=== PATIENT | male | born 1940 | race Caucasian/White ===

== ENCOUNTER 2016-05-31 10:33 | Inpatient (IN) | payer MEDICARE ==
[~2016-05-31] VITALS: Ht 172.7 cm; Wt 83.0 kg
[~2016-05-31 10:33] MED LIST: /AMLO25TA PO; /MIRT30TA PO; /TIOT18INH INH; ACET65TA OR; ALBU17IN2 INH; ALBU17IN2 NEB; ALBU83IN INH; AMBI10TA OR; AMLO10TAB PO; AMLO5TAB2 PO; ASPI81TA PO; ASPI81TA31 PO; ASPI81TA7 PO; ASPI81TA85 PO; ATOR40TA PO; BROV15NE INH; BROVANA; CARV12.5 PO; CEFT500T PO; EFFE150C PO; ENAL10TA2 PO; FURO40TA2 PO; ISOS30TA4 PO; KEFL500C7 PO; LEVO750T33 PO; LIDO1OIN2 TOP; LISI10TA4 PO; LISI30TA4 PO; LOPR50TA PO; LOSA50TA20 PO; MAALSUS OR; METF500T4 PO; METO25TAB PO; MIRT30TA3 PO; MIRT45TA PO; NITR0.4S SL; PLAV75TA2 PO; PRED10TA PO; PRED10TA2 OR; PRED10TA2 PO; PRED5TA PO; PROA1AER INH; REME15TA PO; REME30TA PO; ROXI1TAB2 PO; SIMV20TA2 PO; SPIR12.9 INH; SPIR1CAP INH; SPIR25TA2 PO; Santyl TD; THEO30TASA PO; TYLE325T5 PO; TYLE650T30 PO; VENL150C43 PO; VENTAER IN; VITA100066 PO; ZITH250T OR; ZITH500T PO; [UNRECOGNIZED DRUG - CODE] PO
[2016-05-31] MEDS ORDERED: IPRATROPIUM 0.5MG/ALBUTEROL 2.5MG INH SOL UD 3ML (DUONEB)(J7620) As Ordered ONE (10:46)
[2016-05-31 10:52] LABS: ABG BASE EXCESS -2.3 (-2.0-2.0); ABG DEVICE NASAL CANN; ABG HCO3 21.8 MEQ/L (22.0-26.0); ABG PARTIAL PRESSURE CO2 35.8 mmHg (35.0-45.0); ABG PARTIAL PRESSURE O2 194.8 mmHg (75.0-100.0); ABG STANDARD HCO3 22.6 MEQ/L (22.0-26.0); ABG TOTAL CO2 22.9 MEQ/L (23.0-31.0); ABG pH (ARTERIAL) 7.403 UNITS (7.350-7.450)
--- NOTE | 2016-05-31 11:08 | REP ---
AP portable sitting chest radiograph 05/31/2016 Indication: Shortness of breath Comparison: AP portable chest 05/22/2016, PA and lateral chest 11/02/2015 The cardiac silhouette is normal. Atherosclerotic changes are noted in the thoracic aorta. Small amount of bibasilar fibro atelectatic changes are again identified. There are mild degenerative changes in the thoracic spine. Soft tissues are within normal limits, Impression 1. Small mild bibasilar fibro atelectatic changes, stable. 2. Normal cardiac silhouette. Atherosclerotic changes in the thoracic aorta Signed by Kristin Christie MD 05/31/2016 10:59 A
[2016-05-31 11:18] LABS: BASO # 0.1 K/mm3 (0.0-0.2); BASO % 0.6 % (0.0-1.0); EOS # 0.1 K/mm3 (0.0-0.50); EOS % 0.7 % (0.0-3.0); LARGE UNSTAINED CELL # 0.2 K/mm3 (0.0-0.4); LARGE UNSTAINED CELL % 1.7 % (0.0-4.0); LYMPH # 2.8 K/mm3 (1.5-4.5); LYMPH % 19.8 % (24.0-44.0); MEAN CORPUSCULAR HEMOGLOBIN 32.6 pg (27.0-33.0); MEAN CORPUSCULAR HGB CONC 34.9 g/dl (32.0-36.5); MEAN CORPUSCULAR VOLUME 93.5 fl (80.0-96.0); MONO # 0.7 K/mm3 (0.0-0.8); MONO % 4.7 % (0.0-5.0); NEUTROPHILS # 10.2 K/mm3 (1.8-7.7); NEUTROPHILS % 72.5 % (36.0-66.0); PLATELET COUNT, AUTOMATED 149 k/mm3 (150-450); RED CELL DISTRIBUTION WIDTH 13.7 % (11.5-14.5)
[2016-05-31 11:29] LABS: CALCIUM LEVEL 9.2 MG/DL (8.8-10.2); CREATININE FOR GFR 3.68 MG/DL (0.70-1.30); GLOMERULAR FILTRATION RATE 17.2 (>42); POTASSIUM SERUM 3.7 MEQ/L (3.5-5.1)
[2016-05-31] MEDS ORDERED: PROA1AER INH (11:55)
[2016-05-31] MEDS ORDERED: FLORCAP10 PO (11:57)
[2016-05-31] MEDS ORDERED: ONDANSETRON 4MG/2ML VIAL (J2405) IV PRN (13:15)
[2016-05-31] MEDS ORDERED: ALBUTEROL 90 MCG/ACT 8GM HFA INHALER INH PRN (13:45)
[2016-05-31] MEDS ORDERED: ALBUTEROL SULFATE 2.5 MG/0.5 ML INH NEB SOLN INH PRN (13:45)
[2016-05-31 14:01] LABS: THEOPHYLLINE LEVEL 26.4 UG/ML (10.0-20.0)
[2016-05-31 14:03] LABS: ERYTHROCYTE SEDIMENTATION RATE 16 mm/hr (0-20)
[2016-05-31 16:00] VITALS: BP 160/76
[2016-05-31] MEDS: NS 1,000 ML IV SCH (16:02)
--- NOTE | 2016-05-31 16:05 | EDDOCDS ---
Nurse's Notes [facility] Name: Feliciano Flores Age: 76 yrs Sex: Male : 1940 Arrival Date: 05/31/2016 Time: 10:33 Bed Admit Hold Private MD: Katie Diagnosis: Acute kidney failure Presentation: 05/31 10:37 Presenting complaint: EMS states: Call was for difficulty breathing with increased mcp difficulty with exertion. Uses O2 at home. Placed on NRB and sats increased, was given neb by EMS. SL established in right wrist #20, FSBS 132. Passed out and went limp x2 in ambulance, vision blurry. Adult Sepsis Screening: The patient does not have new or worsening altered mentation. Patient has a respiratory rate of greater than or equal to 22 (1 point). Systolic blood pressure is greater than 100. Patient has a qSOFA score of 1- Negative Sepsis Screen. Suicide/Homicide risk assessment- the patient denies having any suicidal and/or homicidal ideations and does not present with any other emotional, behavioral or mental health complaints. Status: Patient is not a service operations manager or dependent. Transition of care: patient was not received from another setting of care. 10:37 Acuity: ELLY Level 2 mcp 10:37 Method Of Arrival: Ambulance mcp Triage Assessment: 10:49 The patient is triaged at the bedside. See Assessment in Nurses Notes section of ED mcp record. 15:39 Respiratory: Onset: The symptoms/episode began/occurred suddenly. mcp Historical: - Allergies: no known allergies; - Home Meds: 1. albuterol sulfate 2.5 mg /3 mL (0.083 %) Inhl nebu daily prn for Chronic Obstructive Pulmonary Disease 2. atorvastatin 40 mg oral tab 1 tab once daily for Hypercholesterolemia 3. Brovana 15 mcg/2 mL inhalation nebu 2 mL 2 times per day for Bronchospasm Prevention with COPD 4. carvedilol 12.5 mg oral tab 1 tab every 12 hours for Hypertension 5. levofloxacin 750 mg Oral tab 1 tab once daily for foot infection 6. lisinopril 30 mg oral tab 1 tab once daily 7. mirtazapine 30 mg Oral tab 1 tab once daily for depression 8. Oxygen 3L NC nightly 2 LPM continuous 9. ProAir HFA 90 mcg/actuation inhalation HFAA 2 puffs every 6 hours 10. Spiriva with HandiHaler 18 mcg Inhl CpDv 1 cap once daily 11. theophylline 300 mg Oral tab 1 tab every 12 hours 12. venlafaxine 150 mg oral cp24 1 cap twice a day for Anxiety with Depression 13. aspirin 81 mg Oral chew 1 tab once daily 14. Vitamin D Oral 2000 units daily 15. Florajen oral oral daily 16. Santyl 250 unit/gram Topical oint once daily - PMHx: Aortic Aneurysm; arteriosclerotic heart disease; cellulitis; COPD; Diverticulitis; enlarged prostate; Hiatal Hernia; Hypercholesterolemia; Hypertension; Osteoarthritis; Pneumonia; traumatic subarachnoid hemorrhage; PVD; - PSHx: Hernia repair; Carpal Tunnel Repair- Left; Bone Grafting; Cholecystectomy; Cataract Surgery- Bilateral; endovascular AAA repair; L popliteal artery bypass; - Social history: Smoking status: Patient states former smoker of tobacco. No barriers to communication noted, The patient speaks fluent Romanian. - Family history: Not pertinent. - : The pt / caregiver states he / she is not on anticoagulants. Home medication list is obtained from the patient. - Exposure Risk Screening:: None identified. Screenin:52 Screening information is obtained from the patient. Fall risk: At risk due to age, The mcp following interventions are performed due to a positive Fall Risk Screen: Fall Risk is added to Special Handling on the patient Summary Screen. A Fall Risk Bracelet was applied to the patient. Side Rails are placed in the up position. A Call Burton is given with instruction to call for help when getting out of bed. Fall Alert bracelet is placed on the patient. Assistance ADL's: requires no assistance with activities of daily living. Abuse/DV Screen: The patient / caregiver reports he/she is: not in a situation that causes fear, pain or injury. Nutritional screening: No deficits noted. Advance Directives: Currently, there is a health care proxy, Piedad Parkern. There is no active DNR order. There is no Power of Intelligence Analyst. home support is adequate. Assessment: 10:50 General: Appears distressed, Behavior is cooperative. Pain: Denies pain. Neurological: [facility] Level of Consciousness is awake, alert, Oriented to person, place, Moves all extremities. Speech is normal. Cardiovascular: Chest pain is denied. Respiratory: Airway is patent Respiratory effort is even, labored, Breath sounds are diminished bilaterally. Reports shortness of breath at rest on exertion labored breathing the patient has moderate shortness of breath. Derm: Skin is pink, warm & dry. 11:00 General: Open reddened area noted on top of right foot near toes. Open reddened area mcp noted on top of left foot--yellow drainage noted on dressing. 11:59 General: Appears in no apparent distress, ill, Behavior is cooperative. Pain: Denies ms18 pain. Neurological: Level of Consciousness is awake, alert, obeys commands. Respiratory: Airway is patent Respiratory effort is even, unlabored. Derm: Skin is pink, warm & dry. 13:04 General: Appears in no apparent distress, Behavior is cooperative. Neurological: Level mcp of Consciousness is awake, alert, Oriented to person, place, Moves all extremities. Speech is normal. Respiratory: Airway is patent Respiratory effort is even, unlabored. Derm: Skin is pink, warm & dry. 14:00 General: Resting on stretcher. Resp unlabored--color pink. Neurological: Level of mcp Consciousness is awake, alert, Oriented to person, place, Moves all extremities. Speech is normal. Derm: Skin is pink, warm & dry. Vital Signs: 10:40 BP 123 / 59; Pulse 97; Resp 22; Temp 99.0(TE); Pulse Ox 100% on 2 lpm NC; dem1 10:56 BP 113 / 69 (auto/); ms18 10:56 Pulse 95 MON; Pulse Ox 99% ; ms18 11:00 BP 121 / 53 (auto/); ms18 11:00 Pulse 95 MON; Pulse Ox 98% ; ms18 11:15 BP 96 / 60 (auto/); ms18 11:15 Pulse 96 MON; Pulse Ox 98% ; ms18 11:29 BP 94 / 57 (auto/); ms18 11:29 Pulse 97 MON; Pulse Ox 100% ; ms18 11:30 BP 107 / 56 (auto/); ms18 11:30 Pulse 98 MON; Pulse Ox 100% ; ms18 11:44 Pulse 96 MON; Pulse Ox 100% ; ms18 11:45 BP 116 / 57 (auto/); Resp 18; ms18 11:51 Weight 81.9 kg (M); mcp 12:00 BP 128 / 62 (auto/); mcp 12:00 Pulse 92 MON; Resp 20; Pulse Ox 100% ; mcp 12:15 BP 137 / 65 (auto/); mcp 12:15 Pulse 88 MON; Pulse Ox 99% ; mcp 12:30 BP 137 / 65 (auto/); mcp 12:30 Pulse 90 MON; Pulse Ox 100% ; mcp 12:45 BP 154 / 70 (auto/); mcp 12:45 Pulse 90 MON; Pulse Ox 98% ; mcp 13:00 BP 151 / 71 (auto/); mcp 13:00 Pulse 92 MON; Resp 20; Pulse Ox 95% ; mcp 13:15 BP 160 / 65 (auto/); mcp 13:15 Pulse 90 MON; Pulse Ox 100% ; mcp 13:30 BP 156 / 72 (auto/); mcp 13:30 Pulse 91 MON; Pulse Ox 98% ; mcp 13:44 Pulse 96 MON; Pulse Ox 99% ; mcp 13:45 BP 157 / 73 (auto/); mcp 14:15 BP 141 / 68 (auto/); mcp 14:15 Pulse 96 MON; Pulse Ox 98% ; mcp 14:30 BP 135 / 63 (auto/); mcp 14:30 Pulse 98 MON; Pulse Ox 94% ; mcp 15:04 BP 154 / 72; Pulse 101; Resp 22; Temp 96.7(O); Pulse Ox 99% on 2 lpm NC; Pain 0/10; mcp Vitals: 10:40 Log In Time N/A - ambulance arrival. dem1 ED Course: 10:34 Patient visited by Sylvia Queen. sew 10:34 Katie is Private Physician. sew 10:34 Patient moved to 1 sew 10:37 Sylvia Post MD is Attending Physician. sd1 10:37 Patient visited by Sylvia Post MD. sd1 10:40 Triage Initiated mcp 10:41 Patient visited by Ramírez Ruiz. dem1 10:43 -Arterial Blood Gas Sent. kt1 10:48 Patient visited by Yolie Miguel PCA. rs6 10:48 Pt greeted and oriented to ED. Patient advised of names of staff involved in care, rs6 location of call [place], wait times and NPO status. Accompanied by Family Member, Patient has correct armband on for positive identification. Placed in gown. Bed in low position. Call light in reach. Side rails up X 1. wastewater analyst lab analyst on. Pulse ox on. NIBP on. 10:48 EKG done. (by ED staff). Reviewed by Sylvia Post MD. rs6 10:49 The patient / caregiver is instructed regarding the plan of care and ED course. mcp 10:50 Maintain field IV. Dressing intact. Good blood return noted. Site clean & dry. Gauge & mcp site: #20 right wrist. O2 via nasal cannula \T\ 2L/min. 10:53 Patient visited by Sandy Caruso RN. [facility] 11:05 BLOOD CULTURES Sent. [facility] 11:26 [facility] Payment Agreement was scanned into [employer] and attached to record. lg 11:34 Chest, 1 View Returned. EDMS 11:58 Patient visited by Samina Rivero RN. ms18 12:38 Sujatha Gordon is Hospitalizing Provider. sd1 13:05 Patient visited by Sandy Caruso RN. mcp 13:07 Patient visited by Sandy Caruso RN. [facility] 14:10 Notified attending ED physician of Critical lab value. Dr Louis notified of [facility] theophylline level of 26.4. 14:12 Patient moved to Admit Hold kpj 14:49 Patient visited by Sandy Caruso RN. [facility] 15:15 T-Sheet-- Draft Copy was scanned into [employer] and attached to record. gb 15:39 No procedures done that require assistance. mcp Administered Medications: 10:50 Drug: Albuterol-Ipratropium 1 neb [ipratropium-albuterol 0.5 mg-3 mg(2.5 mg base)/3 mL kt1 nebulization soln (1 neb)] Route: Nebulizer; 10:51 Drug: Albuterol-Ipratropium 1 neb [ipratropium-albuterol 0.5 mg-3 mg(2.5 mg base)/3 mL kt1 nebulization soln (1 neb)] Route: Nebulizer; 12:08 Drug: NS 0.9% (Sepsis- hypotension or lactate >4mmol/L, 30ml/kg) 2457 ml [sodium ms18 chloride 0.9 % intravenous solution] Route: IV; Rate: bolus; Site: right forearm; RT: 10:43 ABG's drawn from right radial artery pressure held for 5 minutes no bleeding noted kt1 pressure bandage applied specimen sent pt. tolerated well. 10:51 Initial Med Neb Given as ordered Patient was instructed and evaluated on procedure. kt1 Respiratory: Breath sounds are diminished. Order Results: Lab Order: -Arterial Blood Gas; [facility] 05/31/16 10:37 Test: ABG pH (ARTERIAL); Value: 7.403; Range: 7.350-7.450; Units: UNITS; Status: F Test: ABG PARTIAL PRESSURE CO2; Value: 35.8; Range: 35.0-45.0; Units: mmHg; Status: F Test: ABG PARTIAL PRESSURE O2; Value: 194.8; Range: 75.0-100.0; Abnormal: Above high normal; Units: mmHg; Status: F Test: ABG TOTAL CO2; Value: 22.9; Range: 23.0-31.0; Abnormal: Below low normal; Units: MEQ/L; Status: F Test: ABG HCO3; Value: 21.8; Range: 22.0-26.0; Abnormal: Below low normal; Units: MEQ/L; Status: F Test: ABG BASE EXCESS; Value: -2.3; Range: -2.0-2.0; Abnormal: Below low normal; Status: F Test: ABG STANDARD HCO3; Value: 22.6; Range: 22.0-26.0; Units: MEQ/L; Status: F Test: ABG O2 SATURATION; Value: 99.2; Range: 95.0-99.0; Abnormal: Above high normal; Units: %; Status: F Test: ABG DEVICE; Value: NASAL RED; Status: F Lab Order: B-Type Natiuretic Peptide; [facility] 05/31/16 10:55 Test: BRAIN NATRIURETIC PEPTIDE; Value: 47.0; Range: <100; Units: PG/ML; Status: F Lab Order: Basic Metabolic Profile; [facility] 05/31/16 10:55 Test: GLUCOSE, FASTING; Value: 110; Range: 83-110; Units: MG/DL; Status: F Test: BLOOD UREA NITROGEN; Value: 46; Range: 7-18; Abnormal: Above high normal; Units: MG/DL; Status: F Test: CREATININE FOR GFR; Value: 3.68; Range: 0.70-1.30; Abnormal: Above high normal; Units: MG/DL; Status: F Test: GLOMERULAR FILTRATION RATE; Value: 17.2; Range: >42; Abnormal: Below low normal; Status: F Test: SODIUM LEVEL; Value: 143; Range: 136-145; Units: MEQ/L; Status: F Test: POTASSIUM SERUM; Value: 3.7; Range: 3.5-5.1; Units: MEQ/L; Status: F Test: CHLORIDE LEVEL; Value: 100; Range: 98-107; Units: MEQ/L; Status: F Test: CARBON DIOXIDE LEVEL; Value: 28; Range: 21-32; Units: MEQ/L; Status: F Test: ANION GAP; Value: 15; Range: 8-16; Units: MEQ/L; Status: F Test: CALCIUM LEVEL; Value: 9.2; Range: 8.8-10.2; Units: MG/DL; Status: F Test Note: ; Units are mL/min/1.73 m2 Chronic Kidney Disease Staging per NKF: Stage I & II GFR >=60 Normal to Mildly Decreased Stage III GFR 30-59 Moderately Decreased Stage IV GFR 15-29 Severely Decreased Stage V GFR <15 Very Little GFR Left ESRD GFR <15 on SKI PATROL OFFICER Lab Order: CBC with Diff; SPEC'M 05/31/16 10:55 Test: WHITE BLOOD COUNT; Value: 14.0; Range: 4.0-10.0; Abnormal: Above high normal; Units: K/mm3; Status: F Test: RED BLOOD COUNT; Value: 4.14; Range: 4.30-6.10; Abnormal: Below low normal; Units: M/mm3; Status: F Test: HEMOGLOBIN; Value: 13.5; Range: 14.0-18.0; Abnormal: Below low normal; Units: g/dl; Status: F Test: HEMATOCRIT; Value: 38.7; Range: 42.0-52.0; Abnormal: Below low normal; Units: %; Status: F Test: MEAN CORPUSCULAR VOLUME; Value: 93.5; Range: 80.0-96.0; Units: fl; Status: F Test: MEAN CORPUSCULAR HEMOGLOBIN; Value: 32.6; Range: 27.0-33.0; Units: pg; Status: F Test: MEAN CORPUSCULAR HGB CONC; Value: 34.9; Range: 32.0-36.5; Units: g/dl; Status: F Test: RED CELL DISTRIBUTION WIDTH; Value: 13.7; Range: 11.5-14.5; Units: %; Status: F Test: PLATELET COUNT, AUTOMATED; Value: 149; Range: 150-450; Abnormal: Below low normal; Units: k/mm3; Status: F Test: NEUTROPHILS %; Value: 72.5; Range: 36.0-66.0; Abnormal: Above high normal; Units: %; Status: F Test: LYMPH %; Value: 19.8; Range: 24.0-44.0; Abnormal: Below low normal; Units: %; Status: F Test: MONO %; Value: 4.7; Range: 0.0-5.0; Units: %; Status: F Test: EOS %; Value: 0.7; Range: 0.0-3.0; Units: %; Status: F Test: BASO %; Value: 0.6; Range: 0.0-1.0; Units: %; Status: F Test: LARGE UNSTAINED CELL %; Value: 1.7; Range: 0.0-4.0; Units: %; Status: F Test: NEUTROPHILS #; Value: 10.2; Range: 1.8-7.7; Abnormal: Above high normal; Units: K/mm3; Status: F Test: LYMPH #; Value: 2.8; Range: 1.5-4.5; Units: K/mm3; Status: F Test: MONO #; Value: 0.7; Range: 0.0-0.8; Units: K/mm3; Status: F Test: EOS #; Value: 0.1; Range: 0.0-0.50; Units: K/mm3; Status: F Test: BASO #; Value: 0.1; Range: 0.0-0.2; Units: K/mm3; Status: F Test: LARGE UNSTAINED CELL #; Value: 0.2; Range: 0.0-0.4; Units: K/mm3; Status: F Lab Order: Cardiac Injury Profile; SPEC'M 05/31/16 10:55 Test: CPK CREATINE PHOSPHOKINASE; Value: 223; Range: 39-308; Units: U/L; Status: F Test: CK-MB VALUE MASS; Value: 5.9; Range: 0.0-3.6; Abnormal: Above high normal; Units: NG/ML; Status: F Test: MB/CK RELATIVE INDEX; Value: 2.64; Range: < OR =4; Status: F Test Note: ; DIAGNOSIS CRITERIA MMB ng/ml Relative Index (RI) NON-AMI < or = 5 N/A VILLAVICENCIO ZONE > 5 < or = 4 AMI > 5 > 4 Lab Order: Troponin; [facility] 05/31/16 10:55 Test: TROPONIN I; Value: 0.16; Range: < 0.10; Abnormal: Above high normal; Units: NG/ML; Status: F Test Note: ; Troponin I Reference Interval for FriendsClear LOCI: 99th Percentile= 0.00-0.045 ng/ml Risk Stratification: <= 0.10 ng/ml Decreased Risk for Adverse Clinical Events. 0.10-1.50 ng/ml Increased Risk for Adverse Clinical Events. Evaluation of additional criterion and/or repeat testing in 2-6 hours is suggested to rule out myocardial damage. >= 1.50 ng/ml Indicative of Myocardial Injury. Lab Order: Lactic Acid (Villavicencio tube on ice); [facility] 05/31/16 10:55 Test: LACTIC ACID LEVEL, LACTATE; Value: 3.1; Range: 0.4-2.0; Abnormal: Above upper panic limits; Units: MMOL/L; Status: F Lab Order: ERYTHROCYTE SEDIMENTATION RATE; [facility] 05/31/16 10:55 Test: ERYTHROCYTE SEDIMENTATION RATE; Value: 16; Range: 0-20; Units: mm/hr; Status: F Lab Order: THEOPHYLLINE LEVEL; [facility] 05/31/16 10:55 Test: THEOPHYLLINE LEVEL; Value: 26.4; Range: 10.0-20.0; Abnormal: Above high normal; Units: UG/ML; Status: F Lab Order: C REACTIVE PROTEIN QUANTITATIV; [facility] 05/31/16 10:55 Test: C REACTIVE PROTEIN QUANTITATIV; Value: 0.38; Range: 0.00-0.30; Abnormal: Above high normal; Units: MG/DL; Status: F Radiology Order: Chest, 1 View Test: Chest, 1 View REASON FOR EXAMINATION: Shortness of Breath; AP portable sitting chest radiograph 05/31/2016; ; Indication: Shortness of breath; ; Comparison: AP portable chest 05/22/2016, PA and lateral chest 11/02/2015; ; The cardiac silhouette is normal. Atherosclerotic changes are noted in the; thoracic aorta. Small amount of bibasilar fibro atelectatic changes are again; identified. There are mild degenerative changes in the thoracic spine. Soft; tissues are within normal limits,; ; Impression; 1. Small mild bibasilar fibro atelectatic changes, stable.; 2. Normal cardiac silhouette. Atherosclerotic changes in the thoracic aorta; ; ; Signed by; Kristin Christie MD 05/31/2016 10:59 A; Outcome: 12:39 Decision to Hospitalize by Provider. sd1 15:38 Discharge Assessment: patient administered narcotics - no. The following High Risk [facility] Discharge criteria are identified: None. Admitted to PCU accompanied by nurse, accompanied by tech, family with patient, via stretcher, with oxygen, on monitor, with chart. Condition: stable. No special radiology studies were completed. Property :Personal belongings accompany Pt. 16:04 Patient left the ED. [facility] Signatures: Dispatcher [employer] EDMS Sylvia Post MD MD sd1 Berenice Decker RN RN Sandy Holt RN RN [facility] Kirstin Scott, Reg Reg gb Sneha Khanna, Reg Reg lg Delaney Byrnes kt1 Ramírez Ruiz dem1 Sylvia Queen Mallory, RN RN ms18 Yolie Miguel, WINE MAKER WINE MAKER rs6 Corrections: (The following items were deleted from the chart) 10:42 10:40 BP 123 / 59; Pulse 97bpm; Resp 22bpm; Pulse Ox 100% 12 lpm Nasal Cannula; Temp dem1 99.0F Temporal; dem1 13:29 11:51 THEOPHYLLINE LEVEL+LAB sent. [facility] EDMS MTDD
--- NOTE | 2016-05-31 16:05 | EDDOCDS ---
Physician Documentation [facility] Name: Feliciano Flores Age: 76 yrs Sex: Male : 1940 Arrival Date: 05/31/2016 Time: 10:33 Bed Admit Hold Private ANNE Wilson Disposition: 05/31/16 12:39 Hospitalization ordered by Sujatha Gordon for Inpatient Admission. Preliminary diagnosis is Acute kidney failure. - Bed requested for PCU. - Status is Inpatient Admission. mcp - Condition is Stable. - Problem is new. - Symptoms are unchanged. Historical: - Allergies: no known allergies; - Home Meds: 1. albuterol sulfate 2.5 mg /3 mL (0.083 %) Inhl nebu daily prn for Chronic Obstructive Pulmonary Disease 2. atorvastatin 40 mg oral tab 1 tab once daily for Hypercholesterolemia 3. Brovana 15 mcg/2 mL inhalation nebu 2 mL 2 times per day for Bronchospasm Prevention with COPD 4. carvedilol 12.5 mg oral tab 1 tab every 12 hours for Hypertension 5. levofloxacin 750 mg Oral tab 1 tab once daily for foot infection 6. lisinopril 30 mg oral tab 1 tab once daily 7. mirtazapine 30 mg Oral tab 1 tab once daily for depression 8. Oxygen 3L NC nightly 2 LPM continuous 9. ProAir HFA 90 mcg/actuation inhalation HFAA 2 puffs every 6 hours 10. Spiriva with HandiHaler 18 mcg Inhl CpDv 1 cap once daily 11. theophylline 300 mg Oral tab 1 tab every 12 hours 12. venlafaxine 150 mg oral cp24 1 cap twice a day for Anxiety with Depression 13. aspirin 81 mg Oral chew 1 tab once daily 14. Vitamin D Oral 2000 units daily 15. Florajen oral oral daily 16. Santyl 250 unit/gram Topical oint once daily - PMHx: Aortic Aneurysm; arteriosclerotic heart disease; cellulitis; COPD; Diverticulitis; enlarged prostate; Hiatal Hernia; Hypercholesterolemia; Hypertension; Osteoarthritis; Pneumonia; traumatic subarachnoid hemorrhage; PVD; - PSHx: Hernia repair; Carpal Tunnel Repair- Left; Bone Grafting; Cholecystectomy; Cataract Surgery- Bilateral; endovascular AAA repair; L popliteal artery bypass; - Social history: Smoking status: Patient states former smoker of tobacco. No barriers to communication noted, The patient speaks fluent Mongolian. - Family history: Not pertinent. - : The pt / caregiver states he / she is not on anticoagulants. Home medication list is obtained from the patient. - Exposure Risk Screening:: None identified. Vital Signs: 05/31 10:40 BP 123 / 59; Pulse 97; Resp 22; Temp 99.0(TE); Pulse Ox 100% on 2 lpm NC; dem1 10:56 BP 113 / 69 (auto/); ms18 10:56 Pulse 95 MON; Pulse Ox 99% ; ms18 11:00 BP 121 / 53 (auto/); ms18 11:00 Pulse 95 MON; Pulse Ox 98% ; ms18 11:15 BP 96 / 60 (auto/); ms18 11:15 Pulse 96 MON; Pulse Ox 98% ; ms18 11:29 BP 94 / 57 (auto/); ms18 11:29 Pulse 97 MON; Pulse Ox 100% ; ms18 11:30 BP 107 / 56 (auto/); ms18 11:30 Pulse 98 MON; Pulse Ox 100% ; ms18 11:44 Pulse 96 MON; Pulse Ox 100% ; ms18 11:45 BP 116 / 57 (auto/); Resp 18; ms18 11:51 Weight 81.9 kg / 180.56 lbs (M); mcp 12:00 BP 128 / 62 (auto/); mcp 12:00 Pulse 92 MON; Resp 20; Pulse Ox 100% ; mcp 12:15 BP 137 / 65 (auto/); mcp 12:15 Pulse 88 MON; Pulse Ox 99% ; mcp 12:30 BP 137 / 65 (auto/); mcp 12:30 Pulse 90 MON; Pulse Ox 100% ; mcp 12:45 BP 154 / 70 (auto/); mcp 12:45 Pulse 90 MON; Pulse Ox 98% ; mcp 13:00 BP 151 / 71 (auto/); mcp 13:00 Pulse 92 MON; Resp 20; Pulse Ox 95% ; mcp 13:15 BP 160 / 65 (auto/); mcp 13:15 Pulse 90 MON; Pulse Ox 100% ; mcp 13:30 BP 156 / 72 (auto/); mcp 13:30 Pulse 91 MON; Pulse Ox 98% ; mcp 13:44 Pulse 96 MON; Pulse Ox 99% ; mcp 13:45 BP 157 / 73 (auto/); mcp 14:15 BP 141 / 68 (auto/); mcp 14:15 Pulse 96 MON; Pulse Ox 98% ; mcp 14:30 BP 135 / 63 (auto/); mcp 14:30 Pulse 98 MON; Pulse Ox 94% ; mcp 15:04 BP 154 / 72; Pulse 101; Resp 22; Temp 96.7(O); Pulse Ox 99% on 2 lpm NC; Pain 0/10; mcp MDM: 10:37 -Blood Culture (Adults Only), peripheral from different site, or from device/port/PICC sd1 etc. if present ordered. 10:37 Call Respiratory ordered. sd1 10:37 Agricultural Specialist/Pulse Ox/q 15 min VS ordered. sd1 10:37 IV Saline Lock ordered. sd1 10:37 Oxygen at 4L/Min NC or Home dosage ordered. sd1 10:37 Rhythm Strip to chart ordered. sd1 10:37 Albuterol-Ipratropium 1 neb Nebulizer every 20 minutes x3 ordered. sd1 10:38 -Arterial Blood Gas Ordered. EDMS 10:38 -Blood Culture Ordered. EDMS 10:38 B-Type Natiuretic Peptide Ordered. EDMS 10:38 Basic Metabolic Profile Ordered. EDMS 10:38 CBC with Diff Ordered. EDMS 10:38 Cardiac Injury Profile Ordered. EDMS 10:38 Troponin Ordered. EDMS 10:39 Chest, 1 View Ordered. EDMS 10:39 ECG WITH READING ER PHYS+CARDIAG ordered. EDMS 10:40 Call Respiratory complete. sew 10:40 BED REQUEST+ADM ordered. EDMS 10:41 -Blood Culture (Adults Only), peripheral from different site, or from device/port/PICC sew etc. if present complete. 10:42 BLOOD CULTURES Ordered. EDMS 10:47 Lactic Acid (Villavicencio tube on ice) Ordered. EDMS 10:57 -Arterial Blood Gas Reviewed. sd1 11:20 Financial registration complete. lg 11:26 [facility] [place] was scanned into [employer] and attached to record. lg 11:38 Basic Metabolic Profile Reviewed. sd1 11:38 CBC with Diff Reviewed. sd1 11:38 Cardiac Injury Profile Reviewed. sd1 11:38 Troponin Reviewed. sd1 11:38 Lactic Acid (Villavicencio tube on ice) Reviewed. sd1 11:38 B-Type Natiuretic Peptide Reviewed. sd1 11:38 Chest, 1 View Reviewed. sd1 11:41 NS 0.9% (Sepsis- hypotension or lactate >4mmol/L, 30ml/kg) 30 ml/kg IV at bolus once; sd1 Give in 500mL aliquots, assess for rales 2500cc total ordered. 11:43 Stool samples ordered. sd1 11:44 UA Ordered. EDMS 11:44 Urine Culture Ordered. EDMS 11:45 GASTROINTESTINAL (GI) PANEL Ordered. EDMS 12:44 LOW SODIUM+DIET ordered. EDMS 13:19 Admission / Observation Status ordered. EDMS 13:19 2 GRAM SODIUM DIET ordered. EDMS 13:21 URINALYSIS Ordered. EDMS 13:21 URINE CULTURE Ordered. EDMS 13:23 CARDIAC MARKER PANEL Ordered. EDMS 13:23 CARDIAC MARKER PANEL Ordered. EDMS 13:23 BASIC METABOLIC PROFILE Ordered. EDMS 13:23 LACTIC ACID LEVEL, LACTATE Ordered. EDMS 15:15 T-Sheet-- Draft Copy was scanned into [employer] and attached to record. gb Administered Medications: 10:50 Drug: Albuterol-Ipratropium 1 neb [ipratropium-albuterol 0.5 mg-3 mg(2.5 mg base)/3 mL kt1 nebulization soln (1 neb)] Route: Nebulizer; 10:51 Drug: Albuterol-Ipratropium 1 neb [ipratropium-albuterol 0.5 mg-3 mg(2.5 mg base)/3 mL kt1 nebulization soln (1 neb)] Route: Nebulizer; 12:08 Drug: NS 0.9% (Sepsis- hypotension or lactate >4mmol/L, 30ml/kg) 2457 ml [sodium ms18 chloride 0.9 % intravenous solution] Route: IV; Rate: bolus; Site: right forearm; Signatures: Dispatcher [employer] EDOR Sylvia Post MD MD sd1 Sandy Caruso RN RN mcp Kirstin Scott, Reg Reg gb Sneha Khanna, Reg Reg lg Sylvia Queen Sharon, RN RN sls2 Delaney Byrnes kt1 Samina Rivero RN ms18 The chart was reviewed and I authenticate all verbal orders and agree with the evaluation and treatment provided.Corrections: (The following items were deleted from the chart) 11:45 11:44 GASTROINTESTINAL (GI) PANEL+ALEX ordered. EDMS EDMS 13:29 11:44 THEOPHYLLINE LEVEL+LAB ordered. EDMS EDMS 13:21 C REACTIVE PROTEIN QUANTITATIV ordered. EDMS EDMS 13:21 ERYTHROCYTE SEDIMENTATION RATE ordered. EDMS EDMS Attachments: 11:26 [facility] Payment Agreement lg 15:15 T-Sheet-- Draft Copy gb MTDD
[2016-05-31] MEDS: VITAMIN D 1,000 INTERNATIONAL UNITS TABLET PO SCH (16:25)
[2016-05-31] MEDS: ASPIRIN 81 MG CHEW TABLET PO SCH (16:25)
[2016-05-31] MEDS: HEPARIN SOD (PORCINE) 5000 UNITS/ML VIAL SC SCH ×2 (16:26→22:07)
[2016-05-31 18:31] LABS: CALCIUM LEVEL 8.3 MG/DL (8.8-10.2); CREATININE FOR GFR 3.36 MG/DL (0.70-1.30); GLOMERULAR FILTRATION RATE 19.1 (>42); POTASSIUM SERUM 3.7 MEQ/L (3.5-5.1)
[2016-05-31 19:52] VITALS: BP 151/82
[2016-05-31] MEDS ORDERED: ATORVASTATIN 20 MG TAB PO SCH (21:00)
[2016-05-31] MEDS ORDERED: VENLAFAXINE **XR** 75MG CAPSULE PO SCH (21:00)
[2016-05-31] MEDS ORDERED: MIRTAZAPINE 15 MG TAB PO SCH (21:00)
[2016-05-31] MEDS ORDERED: CARVedilol 12.5 MG TAB PO SCH (21:00)
--- NOTE | 2016-05-31 21:20 | HPE ---
DATE OF ADMISSION: PRIMARY CARE PROVIDER: Albaro Wilson MD CHIEF COMPLAINT: Generalized weakness and worsening shortness of breath. HOSPITALIZATION COURSE: The patient is a 76-year-old female presented to [facility] on 05/31/2016 for generalized weakness and worsening of the breathing. The patient does have a history of chronic obstructive pulmonary disease (COPD), hypertension, peripheral vascular disease, atherosclerotic heart disease, benign prostatic hypertrophy (BPH), hiatal hernia, osteoporosis, dyslipidemia, history of diverticulitis, history of traumatic subarachnoid hemorrhages and cellulitis, who was recently admitted to hospital from 05/22/2016 to 05/25/2016 for nonhealing left lower extremity ulcers with cellulitis. The patient stated he has chronic obstructive pulmonary disease (COPD); however for the past several days to week, he noted his shortness of breath has been increasing gradually. However, the patient denies any cough or denies any sputum production and the patient does not have any fever or chills. Denies any recent sick contact, but the patient has a recent hospitalization. For the past two days, he has also complained about constipation, therefore he took extra than usual dose of bowel movement preparation and thus resulting more than four semi-loose/watery diarrhea yesterday. For his cellulitis, he stated the wound is actually improving during and after admission and he just finished a whole course of Levaquin. He has a history of peripheral vascular disease. He had an appointment to see Dr. Farr, the vascular surgeon, in [place] today for his peripheral arterial disease. Due to his current illness, he has cancelled the appointment. Per Emergency Medical Service (EMS) report, the patient had two brief episodes of syncope and there is no cardiac abnormality detected on the monitor and the patient does not remember how long he had loss of consciousness. When the patient arrived to the emergency room, the patient was found to have a blood pressure of 94/57. with a respiration rate of 22, temperature of 99. A breathing screen was given to the patient and approximately 2.5 liters of fluid bolus was given and then the hospitalist team was called for admission. ALLERGIES: No known drug allergies. PAST MEDICAL HISTORY: 1. Chronic obstructive pulmonary disease (COPD) on chronic home oxygen. Chronic steroid dependence for his chronic obstructive pulmonary disease (COPD). 2. Hypertensive peripheral vascular disease. 3. Atherosclerotic heart disease. 4. Benign prostatic hypertrophy (BPH). 5. History of hiatal hernia. 6. Osteoarthritis. 7. Dyslipidemia. 8. History of abdominal aortic aneurysm. Status post aneurysmal repair. 9. History of diverticulitis. 10. History of traumatic subarachnoid hemorrhages. 11. History of left foot cellulitis due to peripheral arterial disease. PAST SURGICAL HISTORY: 1. Hiatal hernia repair. 2. Carpal tunnel repair of the left hand. 3. History of bone grafts. 4. Cholecystectomy. 5. Bilateral cataract surgery 6. Abdominal aortic aneurysm endovascular repair. 7. Bilateral popliteal artery bypass. SOCIAL HISTORY: The patient is a former smoker. The patient smoked for more than 40 years. He quit 15 years ago. Drinks beer occasionally. Denies any recreational drug use. HOME MEDICATIONS: - albuterol nebulizer every 4 hours as needed - aspirin 81 mg by mouth daily - atorvastatin 40 mg by mouth daily - carvedilol 12.5 mg by mouth daily - vitamin D 1000 units by mouth daily - lisinopril 30 mg by mouth daily - Remeron 30 mg by mouth at bedtime (q.h.s.) - theophylline 300 mg by mouth twice a day - Effexor 150 mg by mouth daily REVIEW OF SYSTEMS: GENERAL: Denies any fever or chills. HEENT: Denies any vision changes or auditory changes. CARDIOVASCULAR: Denies any chest pain or palpitations. RESPIRATORY: History of chronic obstructive pulmonary disease (COPD), has worsening shortness of breath in the past several days to weeks. Denies any sputum production. Denies any cough. GASTROINTESTINAL (GI): The patient had constipation before yesterday and the patient took extra dose of bowel movement prep and the patient had four semi-loose, watery diarrhea. No abdominal pain. No blood in the stool. GENITOURINARY (): Denies any frequency, urgency. MUSCULOSKELETAL: Has a chronic nonhealing ulcer at the left lower extremity. The patient feels constant pain from the left lower extremity. NEUROLOGICAL: Chronic decreased sensation of the left lower extremity. OBJECTIVE: VITAL SIGNS: Initially blood pressure (BP) is 96/60. After fluid bolus, the patient's blood pressure became 116/57, pulse is 96, respiration rate is 18, temperature is 99, pulse oximetry 100% with 2 liters nasal canula. Body weight is 81.9 kilograms. GENERAL: Fatigue, pale, alert and oriented times three, in mild distress secondary to difficulty breathing. HEENT: Normocephalic, atraumatic. Extraocular motor grossly intact wearing correct lenses. CARDIOVASCULAR: Very distant heart sound. Positive S1, S2. Regular rate. LUNGS: Very diminished breath sounds. No wheezes. No crackles in bilateral lungs. GASTROINTESTINAL (GI): Abdomen is soft and nontender, nondistended. Bowel sounds are present. No rebound. No guarding. Obese. MUSCULOSKELETAL: Circular superficial wound located on the left foot, just proximal to the first and second toe. Area is approximately 4 cm in diameter. No active discharge. No foul smelling. The patient has a foam dressing over the wound. There is tenderness to palpation even in the surrounding of the wound. NEUROLOGICAL: Decreased sensation in the left lower extremity from the foot to above the ankle and has been a chronic, per patient. LABORATORY DATA: White blood count (WBC) 14, hemoglobin 13.5, hematocrit 38.7, platelet count is 149. Sodium is 143, potassium is 3.7, chloride 100, carbon dioxide 28, BUN 46, creatine 3.68. Glomerular filtration rate (GFR) is 17.2. Fasting glucose 110, lactic acid is 3.1, calcium 9.2. Total CK is 223. Troponin I is 0.16. BNP is 47. MICROBIOLOGY: Blood culture is pending, that is two sets. Arterial blood gas (ABG): pH of 7.4, pCO2 is 35.8, pO2 is 194.8, SGO3 is 21.8. Chest x-ray shows small mild bibasilar atelectatic changes, stable. Normal cardiac silhouette. Electrocardiogram (EKG) showed T-wave inversion compared to prior electrocardiogram (EKG) of 05/22/2016. T-wave inversion was present at that time. ASSESSMENT AND PLAN: 1. Lactic acidosis. The patient was admitted to medical surgical floor on the inpatient status. The reason for lactic acidosis is most likely due to the marked tissue hypoperfusion from hypovolemia and we are in the process of ruling out sepsis since the patient has a history of cellulitis just finishing antibiotic treatments. On cardiology, there is no significant electrocardiogram (EKG) changes. The patient already received 2.5 liters of fluid bolus. Will continue running fluid at 100 mL per hour. We will check the repeated lactic acid. On the arterial blood gas (ABG), the patient has a hyperventilation, try to compensate for his lactic acidosis. 2. Acute on chronic kidney injury, most likely secondary to severe dehydration from excessive bowel movements, probably drug-induced diarrhea. The patient has a creatine baseline of 1.48 on May 23. At the baseline, glomerular filtration rate (GFR) is 49. Currently, the patient's glomerular filtration rate (GFR) is 17.2. Will monitor input and output and daily weight. The patient will receive significant aggressive hydration. 3. Peripheral arterial disease. Resulting in nonhealing wound in the left lower extremity. The patient had an appointment with Dr. Farr, the vascular surgeon, in [place] on 05/31/2016. Due to current illness, the patient was not able to fulfill the appointment. Per the family member, the appointment has been rescheduled. 4. Chronic obstructive pulmonary disease (COPD) on home oxygen. Will try to titrate oxygen saturation between 88 to 92%. The patient will continue with the breathing treatment. Will continue the patient on his home medication. 5. Hypertension. Currently, the patient is hypotensive due to severe dehydration and due to acute kidney injury the patient's lisinopril will be on hold. We will continue carvedilol with a holding parameter. 6. Dyslipidemia. Continue atorvastatin. 7. Nonhealing ulcer of the left foot secondary to peripheral arterial disease. The culture done during the last admission, came back positive for Enterococcus Faecalis. Initially the patient was started on ceftaroline. Later, the patient was discharged with Levaquin. The patient finished a course of the antibiotics. The wound was examined and there is no active discharge, not foul smelling. Will continue wound care as recommended per Dr. Diaz during the last admission. 8. Diarrhea resulting in dehydration causing a urinary tract infection and severe lactic acidosis. I suspect that it is due to the bowel movement medication overuse. However, the patient did have a history of antibiotics use for his cellulitis. We followup. The GI panel has been ordered. 9. History of abdominal aortic aneurysm (AAA) status post repair. 10. History of depression. Continue Effexor and Remeron. 11. History of chronic obstructive pulmonary disease (COPD) on home oxygen. 12. History of traumatic subarachnoid hemorrhage. 13. History of arteriosclerotic heart disease. 14. Deep vein thrombosis (DVT) prophylaxis on heparin. Edited 06/01/2016 @ 0636 [facility]
[2016-05-31] MEDS: CARVedilol 12.5 MG TAB PO SCH (22:05)
[2016-05-31] MEDS: MIRTAZAPINE 15 MG TAB PO SCH (22:06)
[2016-05-31] MEDS: VENLAFAXINE **XR** 75MG CAPSULE PO SCH (22:06)
[2016-05-31] MEDS: ATORVASTATIN 20 MG TAB PO SCH (22:06)
[2016-05-31 23:51] VITALS: BP 179/90
[2016-06-01] MEDS ORDERED: SLF 3 ML SYR IV PRN (00:30)
[2016-06-01 03:26] VITALS: BP 189/79
[2016-06-01] MEDS: PERCOCET 5MG/325MG TAB PO PRN ×2 (03:33→08:38)
[2016-06-01] MEDS ORDERED: **hydrALAZINE HCL** 25 MG TAB PO ONE (03:45)
[2016-06-01 05:40] LABS: MEAN CORPUSCULAR HEMOGLOBIN 31.9 pg (27.0-33.0); MEAN CORPUSCULAR HGB CONC 33.7 g/dl (32.0-36.5); MEAN CORPUSCULAR VOLUME 94.9 fl (80.0-96.0); RED CELL DISTRIBUTION WIDTH 13.5 % (11.5-14.5); WHITE BLOOD COUNT 10.2 K/mm3 (4.0-10.0)
[2016-06-01 05:53] LABS: CALCIUM LEVEL 8.2 MG/DL (8.8-10.2); CREATININE FOR GFR 2.88 MG/DL (0.70-1.30); GLOMERULAR FILTRATION RATE 22.8 (>42); POTASSIUM SERUM 4.1 MEQ/L (3.5-5.1)
[2016-06-01] MEDS: NS 1,000 ML IV SCH (06:00)
[2016-06-01] MEDS: HEPARIN SOD (PORCINE) 5000 UNITS/ML VIAL SC SCH ×3 (06:00→20:47)
[2016-06-01 06:06] VITALS: BP 158/80
[2016-06-01] MEDS: SLF 3 ML SYR IV SCH ×3 (06:08→20:49)
[2016-06-01 08:00] VITALS: BP 142/84
[2016-06-01] MEDS: VENLAFAXINE **XR** 75MG CAPSULE PO SCH ×2 (08:32→20:49)
[2016-06-01] MEDS: **hydrALAZINE HCL** 25 MG TAB PEG SCH ×3 (08:33→20:46)
[2016-06-01] MEDS: VITAMIN D 1,000 INTERNATIONAL UNITS TABLET PO SCH (08:33)
[2016-06-01] MEDS: amLODIPine 5 MG TAB PO SCH ×2 (08:33→20:48)
[2016-06-01] MEDS: CARVedilol 12.5 MG TAB PO SCH ×2 (08:33→20:49)
[2016-06-01] MEDS: ASPIRIN 81 MG CHEW TABLET PO SCH (08:33)
[2016-06-01 12:00] VITALS: BP 114/62
[2016-06-01 16:00] VITALS: BP 142/84
--- NOTE | 2016-06-01 18:40 | ECGEPIP ---
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
[2016-06-01 19:55] VITALS: BP 160/84
[2016-06-01] MEDS: MIRTAZAPINE 15 MG TAB PO SCH (20:48)
[2016-06-01] MEDS: ATORVASTATIN 20 MG TAB PO SCH (20:48)
[2016-06-02] VITALS (7 sets, daily range): BP systolic 120–184; BP diastolic 76–93
[2016-06-02 05:44] LABS: MEAN CORPUSCULAR HEMOGLOBIN 32.4 pg (27.0-33.0); MEAN CORPUSCULAR HGB CONC 33.7 g/dl (32.0-36.5); RED CELL DISTRIBUTION WIDTH 14.6 % (11.5-14.5)
[2016-06-02 06:10] LABS: CALCIUM LEVEL 8.5 MG/DL (8.8-10.2); CREATININE FOR GFR 2.22 MG/DL (0.70-1.30); GLOMERULAR FILTRATION RATE 30.8 (>42); POTASSIUM SERUM 3.6 MEQ/L (3.5-5.1)
[2016-06-02] MEDS: HEPARIN SOD (PORCINE) 5000 UNITS/ML VIAL SC SCH ×3 (06:29→20:31)
[2016-06-02] MEDS: SLF 3 ML SYR IV SCH ×3 (06:29→22:18)
[2016-06-02] MEDS: IPRATROPIUM 0.5MG/ALBUTEROL 2.5MG INH SOL UD 3ML (DUONEB)(J7620) NEB SCH ×3 (08:00→20:10)
[2016-06-02] MEDS: amLODIPine 5 MG TAB PO SCH ×2 (09:09→17:35)
[2016-06-02] MEDS: **hydrALAZINE HCL** 25 MG TAB PEG SCH ×3 (09:09→20:30)
[2016-06-02] MEDS: ASPIRIN 81 MG CHEW TABLET PO SCH (09:10)
[2016-06-02] MEDS: VITAMIN D 1,000 INTERNATIONAL UNITS TABLET PO SCH (09:10)
[2016-06-02] MEDS: VENLAFAXINE **XR** 75MG CAPSULE PO SCH ×2 (09:10→20:30)
[2016-06-02] MEDS: CARVedilol 12.5 MG TAB PO SCH ×2 (09:10→20:31)
[2016-06-02] MEDS: BUDESONIDE 0.25 MG/2 ML INHALATION SUSPENSION INH SCH ×2 (11:04→20:10)
--- NOTE | 2016-06-02 12:59 | IPNPDOC ---
Assessment/Plan Date Seen The patient was seen on 06/01/16. Problems Problems: (1) Acute kidney injury superimposed on CKD Status: Resolved (2) COPD (chronic obstructive pulmonary disease) Status: Chronic Problem Text: with acute exacerbation will continue with nebs (3) Peripheral artery disease Status: Chronic (4) Non-healing ulcer of lower leg Status: Chronic Problem Text: due to peripheral artery disease patient to follow up outpateint with vascular surgeon in [place]. (5) Hypertension Status: Chronic (6) Hyperlipidemia Status: Chronic (7) Abdominal aortic aneurysm Status: Chronic Problem Text: has endovascular stent aorto tina placed in 2013. (8) Renal artery stenosis Status: Chronic (9) BPH (benign prostatic hyperplasia) Status: Chronic Problem Text: continue home medications. (10) History of femoropopliteal bypass Status: Chronic (11) H/O endovascular stent graft for abdominal aortic aneurysm Status: Chronic Plan / VTE VTE Prophylaxis Ordered?: Yes Subjective Review of Systems CC/HPI The patient is a 76-year-old male admitted with a reason for visit of Acute Kidney Failure. Events since last encounter complains of persistent SOB , difficulty in ambulation , pain and redness of the left foot , no fever or chills, no chest pain , no nausea or vomiting or diarrhea. Objective Physical Examination General Exam: Positive: Alert, No Acute Distress Eye Exam: Positive: Conjunctiva & lids normal, EOMI, PERRLA, Negative: Sclera icteric ENT Exam: Positive: Atraumatic, Mucous membr. moist/pink, Pharynx Normal Neck Exam: Positive: Supple, Negative: JVD, thyromegaly Chest Exam: Positive: Diminished, Other (poor bilateral airentry) Heart Exam: Positive: Normal S1, Normal S2, Rate Normal, Regular Rhythm, Negative: Murmurs, Rubs Abdomen Exam: Positive: Normal bowel sounds, Soft, Negative: Hepatospenomegaly, Tenderness Extremity Exam: Positive: Edema, Other (left foor erythematous with ulcer), Tenderness Vital Signs/I&O Vital Signs Date Time Temp Pulse Resp B/P Pulse Ox O2 Delivery O2 Flow Rate FiO2 06/01/16 12:00 96.3 66 20 114/62 97 Nasal Cannula 1.0 I&O- Last 24 Hours up to 6 AM 06/01/16 06:00 Intake Total 1080 ml Output Total 250 ml Balance 830 ml Laboratory Data Labs 24H Laboratory Tests 2 05/31/16 16:54: Anion Gap 12, Blood Urea Nitrogen 45H, Creatinine 3.36H, Sodium Level 143, Potassium Level 3.7, Chloride Level 103, Carbon Dioxide Level 28, Calcium Level 8.3L, Creatine Kinase MB 6.2H, Creatine Kinase MB Relative Index 2.85, Glomerular Filtration Rate 19.1L, Lactic Acid Level 1.5, Total Creatine Kinase 217, Troponin I 0.13H 06/01/16 05:15: Anion Gap 7L, Blood Urea Nitrogen 46H, Creatinine 2.88H, Sodium Level 143, Potassium Level 4.1, Chloride Level 106, Carbon Dioxide Level 30, Calcium Level 8.2L, Glomerular Filtration Rate 22.8L CBC/BMP Laboratory Tests 05/31/16 16:54 Calcium Level 8.3 L 06/01/16 05:15 Calcium Level 8.2 L, Red Blood Count 3.73 L, Mean Corpuscular Volume 94.9, Mean Corpuscular Hemoglobin 31.9, Mean Corpuscular Hemoglobin Concent 33.7, Red Cell Distribution Width 13.5 Microbiology Microbiology 05/31/16 Blood Culture - Preliminary, Resulted No growth after 24 hours . All specim... 05/31/16 Blood Culture - Preliminary, Resulted No growth after 24 hours . All specim... 05/31/16 Urine Culture - Final, Complete FATOU SYLVESTER MD Jun 01, 2016 14:20
--- NOTE | 2016-06-02 13:04 | IPNPDOC ---
Assessment/Plan Date Seen The patient was seen on 06/02/16. Problems Problems: (1) Acute kidney injury superimposed on CKD Status: Resolved Problem Text: possibly due to infection , high dose levofloxacin on the back ground of ACEI and diuretic. improving after stopping meds , also received gentle hydration. has baseline creatine of 1.5 to 1.7 , ckd stage 3. (2) COPD (chronic obstructive pulmonary disease) Status: Chronic Problem Text: with acute exacerbation will continue with nebs (3) Peripheral artery disease Status: Chronic (4) Non-healing ulcer of lower leg Status: Chronic Problem Text: due to peripheral artery disease patient to follow up outpateint with vascular surgeon in [place]. (5) Hypertension Status: Chronic (6) Hyperlipidemia Status: Chronic (7) Abdominal aortic aneurysm Status: Chronic Problem Text: has endovascular stent aorto tina placed in 2013. (8) Renal artery stenosis Status: Chronic (9) BPH (benign prostatic hyperplasia) Status: Chronic Problem Text: continue home medications. (10) History of femoropopliteal bypass Status: Chronic (11) H/O endovascular stent graft for abdominal aortic aneurysm Status: Chronic Plan / VTE VTE Prophylaxis Ordered?: Yes Subjective Review of Systems CC/HPI The patient is a 76-year-old male admitted with a reason for visit of Acute Kidney Failure. Events since last encounter still with severe sob , no chest pain no fever or chills, no abdominal pain , has chronic leg pains. Objective Physical Examination General Exam: Positive: Alert, No Acute Distress Eye Exam: Positive: Conjunctiva & lids normal, EOMI, PERRLA, Negative: Sclera icteric ENT Exam: Positive: Atraumatic, Mucous membr. moist/pink, Pharynx Normal Neck Exam: Positive: Supple, Negative: JVD, thyromegaly Chest Exam: Positive: Diminished, Other (poor bilateral airentry) Heart Exam: Positive: Normal S1, Normal S2, Rate Normal, Regular Rhythm, Negative: Murmurs, Rubs Abdomen Exam: Positive: Normal bowel sounds, Soft, Negative: Hepatospenomegaly, Tenderness Extremity Exam: Positive: Edema, Other (left foor erythematous with ulcer), Tenderness Vital Signs/I&O Vital Signs Date Time Temp Pulse Resp B/P Pulse Ox O2 Delivery O2 Flow Rate FiO2 06/02/16 12:00 96.4 69 22 120/80 99 Nasal Cannula 3.0 I&O- Last 24 Hours up to 6 AM 06/02/16 06:00 Intake Total 1200 ml Output Total 550 ml Balance 650 ml Laboratory Data Labs 24H Laboratory Tests 2 06/02/16 05:00: Anion Gap 8, Blood Urea Nitrogen 42H, Creatinine 2.22H, Sodium Level 147H, Potassium Level 3.6, Chloride Level 109H, Carbon Dioxide Level 30, Calcium Level 8.5L, Glomerular Filtration Rate 30.8L CBC/BMP Laboratory Tests 06/02/16 05:00 Calcium Level 8.5 L, Red Blood Count 3.73 L, Mean Corpuscular Volume 96.0, Mean Corpuscular Hemoglobin 32.4, Mean Corpuscular Hemoglobin Concent 33.7, Red Cell Distribution Width 14.6 H Microbiology Microbiology 05/31/16 Blood Culture - Preliminary, Resulted No Growth after 48 hours. All Specime... 05/31/16 Blood Culture - Preliminary, Resulted No Growth after 48 hours. All Specime... 05/31/16 Urine Culture - Final, Complete FATOU SYLVESTER MD Jun 02, 2016 13:04
--- NOTE | 2016-06-02 17:05 | EDDOCDS ---
Physician Documentation [facility] Name: Feliciano Flores Age: 76 yrs Sex: Male : 1940 Arrival Date: 05/31/2016 Time: 10:33 Bed Admit Hold Private ANNE Wilson Disposition: 05/31/16 12:39 Hospitalization ordered by Sujatha Gordon for Inpatient Admission. Preliminary diagnosis is Acute kidney failure. - Bed requested for PCU. - Status is Inpatient Admission. mcp - Condition is Stable. - Problem is new. - Symptoms are unchanged. Historical: - Allergies: no known allergies; - Home Meds: 1. albuterol sulfate 2.5 mg /3 mL (0.083 %) Inhl nebu daily prn for Chronic Obstructive Pulmonary Disease 2. atorvastatin 40 mg oral tab 1 tab once daily for Hypercholesterolemia 3. Brovana 15 mcg/2 mL inhalation nebu 2 mL 2 times per day for Bronchospasm Prevention with COPD 4. carvedilol 12.5 mg oral tab 1 tab every 12 hours for Hypertension 5. levofloxacin 750 mg Oral tab 1 tab once daily for foot infection 6. lisinopril 30 mg oral tab 1 tab once daily 7. mirtazapine 30 mg Oral tab 1 tab once daily for depression 8. Oxygen 3L NC nightly 2 LPM continuous 9. ProAir HFA 90 mcg/actuation inhalation HFAA 2 puffs every 6 hours 10. Spiriva with HandiHaler 18 mcg Inhl CpDv 1 cap once daily 11. theophylline 300 mg Oral tab 1 tab every 12 hours 12. venlafaxine 150 mg oral cp24 1 cap twice a day for Anxiety with Depression 13. aspirin 81 mg Oral chew 1 tab once daily 14. Vitamin D Oral 2000 units daily 15. Florajen oral oral daily 16. Santyl 250 unit/gram Topical oint once daily - PMHx: Aortic Aneurysm; arteriosclerotic heart disease; cellulitis; COPD; Diverticulitis; enlarged prostate; Hiatal Hernia; Hypercholesterolemia; Hypertension; Osteoarthritis; Pneumonia; traumatic subarachnoid hemorrhage; PVD; - PSHx: Hernia repair; Carpal Tunnel Repair- Left; Bone Grafting; Cholecystectomy; Cataract Surgery- Bilateral; endovascular AAA repair; L popliteal artery bypass; - Social history: Smoking status: Patient states former smoker of tobacco. No barriers to communication noted, The patient speaks fluent [place]. - Family history: Not pertinent. - : The pt / caregiver states he / she is not on anticoagulants. Home medication list is obtained from the patient. - Exposure Risk Screening:: None identified. Vital Signs: 05/31 10:40 BP 123 / 59; Pulse 97; Resp 22; Temp 99.0(TE); Pulse Ox 100% on 2 lpm NC; dem1 10:56 BP 113 / 69 (auto/); ms18 10:56 Pulse 95 MON; Pulse Ox 99% ; ms18 11:00 BP 121 / 53 (auto/); ms18 11:00 Pulse 95 MON; Pulse Ox 98% ; ms18 11:15 BP 96 / 60 (auto/); ms18 11:15 Pulse 96 MON; Pulse Ox 98% ; ms18 11:29 BP 94 / 57 (auto/); ms18 11:29 Pulse 97 MON; Pulse Ox 100% ; ms18 11:30 BP 107 / 56 (auto/); ms18 11:30 Pulse 98 MON; Pulse Ox 100% ; ms18 11:44 Pulse 96 MON; Pulse Ox 100% ; ms18 11:45 BP 116 / 57 (auto/); Resp 18; ms18 11:51 Weight 81.9 kg / 180.56 lbs (M); mcp 12:00 BP 128 / 62 (auto/); mcp 12:00 Pulse 92 MON; Resp 20; Pulse Ox 100% ; mcp 12:15 BP 137 / 65 (auto/); mcp 12:15 Pulse 88 MON; Pulse Ox 99% ; mcp 12:30 BP 137 / 65 (auto/); mcp 12:30 Pulse 90 MON; Pulse Ox 100% ; mcp 12:45 BP 154 / 70 (auto/); mcp 12:45 Pulse 90 MON; Pulse Ox 98% ; mcp 13:00 BP 151 / 71 (auto/); mcp 13:00 Pulse 92 MON; Resp 20; Pulse Ox 95% ; mcp 13:15 BP 160 / 65 (auto/); mcp 13:15 Pulse 90 MON; Pulse Ox 100% ; mcp 13:30 BP 156 / 72 (auto/); mcp 13:30 Pulse 91 MON; Pulse Ox 98% ; mcp 13:44 Pulse 96 MON; Pulse Ox 99% ; mcp 13:45 BP 157 / 73 (auto/); mcp 14:15 BP 141 / 68 (auto/); mcp 14:15 Pulse 96 MON; Pulse Ox 98% ; mcp 14:30 BP 135 / 63 (auto/); mcp 14:30 Pulse 98 MON; Pulse Ox 94% ; mcp 15:04 BP 154 / 72; Pulse 101; Resp 22; Temp 96.7(O); Pulse Ox 99% on 2 lpm NC; Pain 0/10; mcp MDM: 10:37 -Blood Culture (Adults Only), peripheral from different site, or from device/port/PICC sd1 etc. if present ordered. 10:37 Call Respiratory ordered. sd1 10:37 Hull Drafter/Pulse Ox/q 15 min VS ordered. sd1 10:37 IV Saline Lock ordered. sd1 10:37 Oxygen at 4L/Min NC or Home dosage ordered. sd1 10:37 Rhythm Strip to chart ordered. sd1 10:37 Albuterol-Ipratropium 1 neb Nebulizer every 20 minutes x3 ordered. sd1 10:38 -Arterial Blood Gas Ordered. EDMS 10:38 -Blood Culture Ordered. EDMS 10:38 B-Type Natiuretic Peptide Ordered. EDMS 10:38 Basic Metabolic Profile Ordered. EDMS 10:38 CBC with Diff Ordered. EDMS 10:38 Cardiac Injury Profile Ordered. EDMS 10:38 Troponin Ordered. EDMS 10:39 Chest, 1 View Ordered. EDMS 10:39 ECG WITH READING ER PHYS+CARDIAG ordered. EDMS 10:40 Call Respiratory complete. sew 10:40 BED REQUEST+ADM ordered. EDMS 10:41 -Blood Culture (Adults Only), peripheral from different site, or from device/port/PICC sew etc. if present complete. 10:42 BLOOD CULTURES Ordered. EDMS 10:47 Lactic Acid (Villavicencio tube on ice) Ordered. EDMS 10:57 -Arterial Blood Gas Reviewed. sd1 11:20 Financial registration complete. lg 11:26 [facility] [place] was scanned into [employer] and attached to record. lg 11:38 Basic Metabolic Profile Reviewed. sd1 11:38 CBC with Diff Reviewed. sd1 11:38 Cardiac Injury Profile Reviewed. sd1 11:38 Troponin Reviewed. sd1 11:38 Lactic Acid (Villavicencio tube on ice) Reviewed. sd1 11:38 B-Type Natiuretic Peptide Reviewed. sd1 11:38 Chest, 1 View Reviewed. sd1 11:41 NS 0.9% (Sepsis- hypotension or lactate >4mmol/L, 30ml/kg) 30 ml/kg IV at bolus once; sd1 Give in 500mL aliquots, assess for rales 2500cc total ordered. 11:43 Stool samples ordered. sd1 11:44 UA Ordered. EDMS 11:44 Urine Culture Ordered. EDMS 11:45 GASTROINTESTINAL (GI) PANEL Ordered. EDMS 12:44 LOW SODIUM+DIET ordered. EDMS 13:19 Admission / Observation Status ordered. EDMS 13:19 2 GRAM SODIUM DIET ordered. EDMS 13:21 URINALYSIS Ordered. EDMS 13:21 URINE CULTURE Ordered. EDMS 13:23 CARDIAC MARKER PANEL Ordered. EDMS 13:23 CARDIAC MARKER PANEL Ordered. EDMS 13:23 BASIC METABOLIC PROFILE Ordered. EDMS 13:23 LACTIC ACID LEVEL, LACTATE Ordered. EDMS 15:15 T-Sheet-- Draft Copy was scanned into [employer] and attached to record. gb 06/01 10:24 ECG/EKG was scanned into [employer] and attached to record. gb Administered Medications: 05/31 10:50 Drug: Albuterol-Ipratropium 1 neb [ipratropium-albuterol 0.5 mg-3 mg(2.5 mg base)/3 mL kt1 nebulization soln (1 neb)] Route: Nebulizer; 10:51 Drug: Albuterol-Ipratropium 1 neb [ipratropium-albuterol 0.5 mg-3 mg(2.5 mg base)/3 mL kt1 nebulization soln (1 neb)] Route: Nebulizer; 12:08 Drug: NS 0.9% (Sepsis- hypotension or lactate >4mmol/L, 30ml/kg) 2457 ml [sodium ms18 chloride 0.9 % intravenous solution] Route: IV; Rate: bolus; Site: right forearm; Signatures: Dispatcher [employer] EDMS Sylvia Post MD MD sd1 Sandy Caruso RN RN mcp Kirstin Scott, Reg Reg gb Sneha Khanna, Reg Reg lg Sylvia Queen Sharon, RN RN sls2 Delaney Byrnes kt1 Samina Rivero RN ms18 The chart was reviewed and I authenticate all verbal orders and agree with the evaluation and treatment provided.Corrections: (The following items were deleted from the chart) 11:45 11:44 GASTROINTESTINAL (GI) PANEL+ALEX ordered. EDMS EDMS : 11:44 THEOPHYLLINE LEVEL+LAB ordered. EDMS EDMS 13:21 C REACTIVE PROTEIN QUANTITATIV ordered. EDMS EDMS 13:21 ERYTHROCYTE SEDIMENTATION RATE ordered. EDMS EDMS Attachments: 11:26 [facility] Payment Agreement lg 15:15 T-Sheet-- Draft Copy 06/01 10:24 ECG/EKG gb Chart Complete MTDD
--- NOTE | 2016-06-02 17:05 | EDDOCDS ---
Nurse's Notes [facility] Name: Feliciano Flores Age: 76 yrs Sex: Male : 1940 Arrival Date: 05/31/2016 Time: 10:33 Bed Admit Hold Private MD: Katie Diagnosis: Acute kidney failure Presentation: 05/31 10:37 Presenting complaint: EMS states: Call was for difficulty breathing with increased mcp difficulty with exertion. Uses O2 at home. Placed on NRB and sats increased, was given neb by EMS. SL established in right wrist #20, FSBS 132. Passed out and went limp x2 in ambulance, vision blurry. Adult Sepsis Screening: The patient does not have new or worsening altered mentation. Patient has a respiratory rate of greater than or equal to 22 (1 point). Systolic blood pressure is greater than 100. Patient has a qSOFA score of 1- Negative Sepsis Screen. Suicide/Homicide risk assessment- the patient denies having any suicidal and/or homicidal ideations and does not present with any other emotional, behavioral or mental health complaints. 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 Transition of care: patient was not received from another setting of care. 10:37 Acuity: ELLY Level 2 mcp 10:37 Method Of Arrival: Ambulance mcp Triage Assessment: 10:49 The patient is triaged at the bedside. See Assessment in Nurses Notes section of ED mcp record. 15:39 Respiratory: Onset: The symptoms/episode began/occurred suddenly. mcp Historical: - Allergies: no known allergies; - Home Meds: 1. albuterol sulfate 2.5 mg /3 mL (0.083 %) Inhl nebu daily prn for Chronic Obstructive Pulmonary Disease 2. atorvastatin 40 mg oral tab 1 tab once daily for Hypercholesterolemia 3. Brovana 15 mcg/2 mL inhalation nebu 2 mL 2 times per day for Bronchospasm Prevention with COPD 4. carvedilol 12.5 mg oral tab 1 tab every 12 hours for Hypertension 5. levofloxacin 750 mg Oral tab 1 tab once daily for foot infection 6. lisinopril 30 mg oral tab 1 tab once daily 7. mirtazapine 30 mg Oral tab 1 tab once daily for depression 8. Oxygen 3L NC nightly 2 LPM continuous 9. ProAir HFA 90 mcg/actuation inhalation HFAA 2 puffs every 6 hours 10. Spiriva with HandiHaler 18 mcg Inhl CpDv 1 cap once daily 11. theophylline 300 mg Oral tab 1 tab every 12 hours 12. venlafaxine 150 mg oral cp24 1 cap twice a day for Anxiety with Depression 13. aspirin 81 mg Oral chew 1 tab once daily 14. Vitamin D Oral 2000 units daily 15. Florajen oral oral daily 16. Santyl 250 unit/gram Topical oint once daily - PMHx: Aortic Aneurysm; arteriosclerotic heart disease; cellulitis; COPD; Diverticulitis; enlarged prostate; Hiatal Hernia; Hypercholesterolemia; Hypertension; Osteoarthritis; Pneumonia; traumatic subarachnoid hemorrhage; PVD; - PSHx: Hernia repair; Carpal Tunnel Repair- Left; Bone Grafting; Cholecystectomy; Cataract Surgery- Bilateral; endovascular AAA repair; L popliteal artery bypass; - Social history: Smoking status: Patient states former smoker of tobacco. No barriers to communication noted, The patient speaks fluent Ugandan. - Family history: Not pertinent. - : The pt / caregiver states he / she is not on anticoagulants. Home medication list is obtained from the patient. - Exposure Risk Screening:: None identified. Screenin:52 Screening information is obtained from the patient. Fall risk: At risk due to age, The mcp following interventions are performed due to a positive Fall Risk Screen: Fall Risk is added to Special Handling on the patient Summary Screen. A Fall Risk Bracelet was applied to the patient. Side Rails are placed in the up position. A Call Burton is given with instruction to call for help when getting out of bed. Fall Alert bracelet is placed on the patient. Assistance ADL's: requires no assistance with activities of daily living. Abuse/DV Screen: The patient / caregiver reports he/she is: not in a situation that causes fear, pain or injury. Nutritional screening: No deficits noted. Advance Directives: Currently, there is a health care proxy, Piedad Parkern. There is no active DNR order. There is no Power of Boat Pilot. home support is adequate. Assessment: 10:50 General: Appears distressed, Behavior is cooperative. Pain: Denies pain. Neurological: [facility] Level of Consciousness is awake, alert, Oriented to person, place, Moves all extremities. Speech is normal. Cardiovascular: Chest pain is denied. Respiratory: Airway is patent Respiratory effort is even, labored, Breath sounds are diminished bilaterally. Reports shortness of breath at rest on exertion labored breathing the patient has moderate shortness of breath. Derm: Skin is pink, warm & dry. 11:00 General: Open reddened area noted on top of right foot near toes. Open reddened area mcp noted on top of left foot--yellow drainage noted on dressing. 11:59 General: Appears in no apparent distress, ill, Behavior is cooperative. Pain: Denies ms18 pain. Neurological: Level of Consciousness is awake, alert, obeys commands. Respiratory: Airway is patent Respiratory effort is even, unlabored. Derm: Skin is pink, warm & dry. 13:04 General: Appears in no apparent distress, Behavior is cooperative. Neurological: Level mcp of Consciousness is awake, alert, Oriented to person, place, Moves all extremities. Speech is normal. Respiratory: Airway is patent Respiratory effort is even, unlabored. Derm: Skin is pink, warm & dry. 14:00 General: Resting on stretcher. Resp unlabored--color pink. Neurological: Level of mcp Consciousness is awake, alert, Oriented to person, place, Moves all extremities. Speech is normal. Derm: Skin is pink, warm & dry. Vital Signs: 10:40 BP 123 / 59; Pulse 97; Resp 22; Temp 99.0(TE); Pulse Ox 100% on 2 lpm NC; dem1 10:56 BP 113 / 69 (auto/); ms18 10:56 Pulse 95 MON; Pulse Ox 99% ; ms18 11:00 BP 121 / 53 (auto/); ms18 11:00 Pulse 95 MON; Pulse Ox 98% ; ms18 11:15 BP 96 / 60 (auto/); ms18 11:15 Pulse 96 MON; Pulse Ox 98% ; ms18 11:29 BP 94 / 57 (auto/); ms18 11:29 Pulse 97 MON; Pulse Ox 100% ; ms18 11:30 BP 107 / 56 (auto/); ms18 11:30 Pulse 98 MON; Pulse Ox 100% ; ms18 11:44 Pulse 96 MON; Pulse Ox 100% ; ms18 11:45 BP 116 / 57 (auto/); Resp 18; ms18 11:51 Weight 81.9 kg (M); mcp 12:00 BP 128 / 62 (auto/); mcp 12:00 Pulse 92 MON; Resp 20; Pulse Ox 100% ; mcp 12:15 BP 137 / 65 (auto/); mcp 12:15 Pulse 88 MON; Pulse Ox 99% ; mcp 12:30 BP 137 / 65 (auto/); mcp 12:30 Pulse 90 MON; Pulse Ox 100% ; mcp 12:45 BP 154 / 70 (auto/); mcp 12:45 Pulse 90 MON; Pulse Ox 98% ; mcp 13:00 BP 151 / 71 (auto/); mcp 13:00 Pulse 92 MON; Resp 20; Pulse Ox 95% ; mcp 13:15 BP 160 / 65 (auto/); mcp 13:15 Pulse 90 MON; Pulse Ox 100% ; mcp 13:30 BP 156 / 72 (auto/); mcp 13:30 Pulse 91 MON; Pulse Ox 98% ; mcp 13:44 Pulse 96 MON; Pulse Ox 99% ; mcp 13:45 BP 157 / 73 (auto/); mcp 14:15 BP 141 / 68 (auto/); mcp 14:15 Pulse 96 MON; Pulse Ox 98% ; mcp 14:30 BP 135 / 63 (auto/); mcp 14:30 Pulse 98 MON; Pulse Ox 94% ; mcp 15:04 BP 154 / 72; Pulse 101; Resp 22; Temp 96.7(O); Pulse Ox 99% on 2 lpm NC; Pain 0/10; mcp Vitals: 10:40 Log In Time N/A - ambulance arrival. dem1 ED Course: 10:34 Patient visited by Sylvia Queen. sew 10:34 Katie is Private Physician. sew 10:34 Patient moved to 1 sew 10:37 Sylvia Post MD is Attending Physician. sd1 10:37 Patient visited by Sylvia Post MD. sd1 10:40 Triage Initiated mcp 10:41 Patient visited by Ramírez Ruiz. dem1 10:43 -Arterial Blood Gas Sent. kt1 10:48 Patient visited by Yolie Miguel PCA. rs6 10:48 Pt greeted and oriented to ED. Patient advised of names of staff involved in care, rs6 location of call [place], wait times and NPO status. Accompanied by Family Member, Patient has correct armband on for positive identification. Placed in gown. Bed in low position. Call light in reach. Side rails up X 1. monitoring analyst on. Pulse ox on. NIBP on. 10:48 EKG done. (by ED staff). Reviewed by Sylvia Post MD. rs6 10:49 The patient / caregiver is instructed regarding the plan of care and ED course. [facility] 10:50 Maintain field IV. Dressing intact. Good blood return noted. Site clean & dry. Gauge & mcp site: #20 right wrist. O2 via nasal cannula \T\ 2L/min. 10:53 Patient visited by Sandy Caruso RN. [facility] 11:05 BLOOD CULTURES Sent. [facility] 11:26 [facility] Payment Agreement was scanned into [employer] and attached to record. lg 11:34 Chest, 1 View Returned. EDMS 11:58 Patient visited by Samina Rivero RN. ms18 12:38 Sujatha Gordon is Hospitalizing Provider. sd1 13:05 Patient visited by Sandy Caruso RN. mcp 13:07 Patient visited by Sandy Caruso RN. [facility] 14:10 Notified attending ED physician of Critical lab value. Dr Louis notified of [facility] theophylline level of 26.4. 14:12 Patient moved to Admit Hold [facility] 14:49 Patient visited by Sandy Caruso RN. [facility] 15:15 T-Sheet-- Draft Copy was scanned into [employer] and attached to record. gb 15:39 No procedures done that require assistance. [facility] 06/01 10:24 ECG/EKG was scanned into [employer] and attached to record. gb Administered Medications: 05/31 10:50 Drug: Albuterol-Ipratropium 1 neb [ipratropium-albuterol 0.5 mg-3 mg(2.5 mg base)/3 mL kt1 nebulization soln (1 neb)] Route: Nebulizer; 10:51 Drug: Albuterol-Ipratropium 1 neb [ipratropium-albuterol 0.5 mg-3 mg(2.5 mg base)/3 mL kt1 nebulization soln (1 neb)] Route: Nebulizer; 12:08 Drug: NS 0.9% (Sepsis- hypotension or lactate >4mmol/L, 30ml/kg) 2457 ml [sodium ms18 chloride 0.9 % intravenous solution] Route: IV; Rate: bolus; Site: right forearm; RT: 10:43 ABG's drawn from right radial artery pressure held for 5 minutes no bleeding noted kt1 pressure bandage applied specimen sent pt. tolerated well. 10:51 Initial Med Neb Given as ordered Patient was instructed and evaluated on procedure. kt1 Respiratory: Breath sounds are diminished. Order Results: Lab Order: -Arterial Blood Gas; [facility]' 05/31/16 10:37 Test: ABG pH (ARTERIAL); Value: 7.403; Range: 7.350-7.450; Units: UNITS; Status: F Test: ABG PARTIAL PRESSURE CO2; Value: 35.8; Range: 35.0-45.0; Units: mmHg; Status: F Test: ABG PARTIAL PRESSURE O2; Value: 194.8; Range: 75.0-100.0; Abnormal: Above high normal; Units: mmHg; Status: F Test: ABG TOTAL CO2; Value: 22.9; Range: 23.0-31.0; Abnormal: Below low normal; Units: MEQ/L; Status: F Test: ABG HCO3; Value: 21.8; Range: 22.0-26.0; Abnormal: Below low normal; Units: MEQ/L; Status: F Test: ABG BASE EXCESS; Value: -2.3; Range: -2.0-2.0; Abnormal: Below low normal; Status: F Test: ABG STANDARD HCO3; Value: 22.6; Range: 22.0-26.0; Units: MEQ/L; Status: F Test: ABG O2 SATURATION; Value: 99.2; Range: 95.0-99.0; Abnormal: Above high normal; Units: %; Status: F Test: ABG DEVICE; Value: NASAL RED; Status: F Lab Order: B-Type Natiuretic Peptide; [facility]' 05/31/16 10:55 Test: BRAIN NATRIURETIC PEPTIDE; Value: 47.0; Range: <100; Units: PG/ML; Status: F Lab Order: Basic Metabolic Profile; [facility]' 05/31/16 10:55 Test: GLUCOSE, FASTING; Value: 110; Range: 83-110; Units: MG/DL; Status: F Test: BLOOD UREA NITROGEN; Value: 46; Range: 7-18; Abnormal: Above high normal; Units: MG/DL; Status: F Test: CREATININE FOR GFR; Value: 3.68; Range: 0.70-1.30; Abnormal: Above high normal; Units: MG/DL; Status: F Test: GLOMERULAR FILTRATION RATE; Value: 17.2; Range: >42; Abnormal: Below low normal; Status: F Test: SODIUM LEVEL; Value: 143; Range: 136-145; Units: MEQ/L; Status: F Test: POTASSIUM SERUM; Value: 3.7; Range: 3.5-5.1; Units: MEQ/L; Status: F Test: CHLORIDE LEVEL; Value: 100; Range: 98-107; Units: MEQ/L; Status: F Test: CARBON DIOXIDE LEVEL; Value: 28; Range: 21-32; Units: MEQ/L; Status: F Test: ANION GAP; Value: 15; Range: 8-16; Units: MEQ/L; Status: F Test: CALCIUM LEVEL; Value: 9.2; Range: 8.8-10.2; Units: MG/DL; Status: F Test Note: ; Units are mL/min/1.73 m2 Chronic Kidney Disease Staging per NKF: Stage I & II GFR >=60 Normal to Mildly Decreased Stage III GFR 30-59 Moderately Decreased Stage IV GFR 15-29 Severely Decreased Stage V GFR <15 Very Little GFR Left ESRD GFR <15 on TYPE ROLLING MACHINE OPERATOR Lab Order: CBC with Diff; SPEC'M 05/31/16 10:55 Test: WHITE BLOOD COUNT; Value: 14.0; Range: 4.0-10.0; Abnormal: Above high normal; Units: K/mm3; Status: F Test: RED BLOOD COUNT; Value: 4.14; Range: 4.30-6.10; Abnormal: Below low normal; Units: M/mm3; Status: F Test: HEMOGLOBIN; Value: 13.5; Range: 14.0-18.0; Abnormal: Below low normal; Units: g/dl; Status: F Test: HEMATOCRIT; Value: 38.7; Range: 42.0-52.0; Abnormal: Below low normal; Units: %; Status: F Test: MEAN CORPUSCULAR VOLUME; Value: 93.5; Range: 80.0-96.0; Units: fl; Status: F Test: MEAN CORPUSCULAR HEMOGLOBIN; Value: 32.6; Range: 27.0-33.0; Units: pg; Status: F Test: MEAN CORPUSCULAR HGB CONC; Value: 34.9; Range: 32.0-36.5; Units: g/dl; Status: F Test: RED CELL DISTRIBUTION WIDTH; Value: 13.7; Range: 11.5-14.5; Units: %; Status: F Test: PLATELET COUNT, AUTOMATED; Value: 149; Range: 150-450; Abnormal: Below low normal; Units: k/mm3; Status: F Test: NEUTROPHILS %; Value: 72.5; Range: 36.0-66.0; Abnormal: Above high normal; Units: %; Status: F Test: LYMPH %; Value: 19.8; Range: 24.0-44.0; Abnormal: Below low normal; Units: %; Status: F Test: MONO %; Value: 4.7; Range: 0.0-5.0; Units: %; Status: F Test: EOS %; Value: 0.7; Range: 0.0-3.0; Units: %; Status: F Test: BASO %; Value: 0.6; Range: 0.0-1.0; Units: %; Status: F Test: LARGE UNSTAINED CELL %; Value: 1.7; Range: 0.0-4.0; Units: %; Status: F Test: NEUTROPHILS #; Value: 10.2; Range: 1.8-7.7; Abnormal: Above high normal; Units: K/mm3; Status: F Test: LYMPH #; Value: 2.8; Range: 1.5-4.5; Units: K/mm3; Status: F Test: MONO #; Value: 0.7; Range: 0.0-0.8; Units: K/mm3; Status: F Test: EOS #; Value: 0.1; Range: 0.0-0.50; Units: K/mm3; Status: F Test: BASO #; Value: 0.1; Range: 0.0-0.2; Units: K/mm3; Status: F Test: LARGE UNSTAINED CELL #; Value: 0.2; Range: 0.0-0.4; Units: K/mm3; Status: F Lab Order: Cardiac Injury Profile; SPEC'M 05/31/16 10:55 Test: CPK CREATINE PHOSPHOKINASE; Value: 223; Range: 39-308; Units: U/L; Status: F Test: CK-MB VALUE MASS; Value: 5.9; Range: 0.0-3.6; Abnormal: Above high normal; Units: NG/ML; Status: F Test: MB/CK RELATIVE INDEX; Value: 2.64; Range: < OR =4; Status: F Test Note: ; DIAGNOSIS CRITERIA MMB ng/ml Relative Index (RI) NON-AMI < or = 5 N/A VILLAVICENCIO ZONE > 5 < or = 4 AMI > 5 > 4 Lab Order: Troponin; [facility]05/31/16 10:55 Test: TROPONIN I; Value: 0.16; Range: < 0.10; Abnormal: Above high normal; Units: NG/ML; Status: F Test Note: ; Troponin I Reference Interval for [employer] SACV LOCI: 99th Percentile= 0.00-0.045 ng/ml Risk Stratification: <= 0.10 ng/ml Decreased Risk for Adverse Clinical Events. 0.10-1.50 ng/ml Increased Risk for Adverse Clinical Events. Evaluation of additional criterion and/or repeat testing in 2-6 hours is suggested to rule out myocardial damage. >= 1.50 ng/ml Indicative of Myocardial Injury. Lab Order: Lactic Acid (Villavicencio tube on ice); [facility]05/31/16 10:55 Test: LACTIC ACID LEVEL, LACTATE; Value: 3.1; Range: 0.4-2.0; Abnormal: Above upper panic limits; Units: MMOL/L; Status: F Lab Order: ERYTHROCYTE SEDIMENTATION RATE; [facility]05/31/16 10:55 Test: ERYTHROCYTE SEDIMENTATION RATE; Value: 16; Range: 0-20; Units: mm/hr; Status: F Lab Order: THEOPHYLLINE LEVEL; [facility]05/31/16 10:55 Test: THEOPHYLLINE LEVEL; Value: 26.4; Range: 10.0-20.0; Abnormal: Above high normal; Units: UG/ML; Status: F Lab Order: C REACTIVE PROTEIN QUANTITATIV; [facility]05/31/16 10:55 Test: C REACTIVE PROTEIN QUANTITATIV; Value: 0.38; Range: 0.00-0.30; Abnormal: Above high normal; Units: MG/DL; Status: F Radiology Order: Chest, 1 View Test: Chest, 1 View REASON FOR EXAMINATION: Shortness of Breath; AP portable sitting chest radiograph 05/31/2016; ; Indication: Shortness of breath; ; Comparison: AP portable chest 05/22/2016, PA and lateral chest 11/02/2015; ; The cardiac silhouette is normal. Atherosclerotic changes are noted in the; thoracic aorta. Small amount of bibasilar fibro atelectatic changes are again; identified. There are mild degenerative changes in the thoracic spine. Soft; tissues are within normal limits,; ; Impression; 1. Small mild bibasilar fibro atelectatic changes, stable.; 2. Normal cardiac silhouette. Atherosclerotic changes in the thoracic aorta; ; ; Signed by; Kristin Christie MD 05/31/2016 10:59 A; Outcome: 12:39 Decision to Hospitalize by Provider. sd1 15:38 Discharge Assessment: patient administered narcotics - no. The following High Risk [facility] Discharge criteria are identified: None. Admitted to PCU accompanied by nurse, accompanied by tech, family with patient, via stretcher, with oxygen, on monitor, with chart. Condition: stable. No special radiology studies were completed. Property :Personal belongings accompany Pt. 16:04 Patient left the ED. [facility] Signatures: Dispatcher [employer] EDMS Sylvia Post MD MD sd1 Berenice Decker, RN Sandy Wills RN RN [facility] Kirstin Scott, Reg Reg gb Sneha Khanna, Reg Reg lg Delaney Byrnes kt1 Ramírez Ruiz dem1 Sylvia Queen Mallory,GASPER RN ms18 Yolie Miguel, PANEL CUTTER PANEL CUTTER rs6 Corrections: (The following items were deleted from the chart) 10:42 10:40 BP 123 / 59; Pulse 97bpm; Resp 22bpm; Pulse Ox 100% 12 lpm Nasal Cannula; Temp dem1 99.0F Temporal; dem1 13:29 11:51 THEOPHYLLINE LEVEL+LAB sent. [facility] EDMS Chart Complete MTDD
--- NOTE | 2016-06-02 17:05 | EDDOCDS ---
Physician Documentation [facility] Name: Feliciano Flores Age: 76 yrs Sex: Male : 1940 Arrival Date: 05/31/2016 Time: 10:33 Bed Admit Hold Private ANNE Wilson Disposition: 05/31/16 12:39 Hospitalization ordered by Sujatha Gordon for Inpatient Admission. Preliminary diagnosis is Acute kidney failure. - Bed requested for PCU. - Status is Inpatient Admission. mcp - Condition is Stable. - Problem is new. - Symptoms are unchanged. Historical: - Allergies: no known allergies; - Home Meds: 1. albuterol sulfate 2.5 mg /3 mL (0.083 %) Inhl nebu daily prn for Chronic Obstructive Pulmonary Disease 2. atorvastatin 40 mg oral tab 1 tab once daily for Hypercholesterolemia 3. Brovana 15 mcg/2 mL inhalation nebu 2 mL 2 times per day for Bronchospasm Prevention with COPD 4. carvedilol 12.5 mg oral tab 1 tab every 12 hours for Hypertension 5. levofloxacin 750 mg Oral tab 1 tab once daily for foot infection 6. lisinopril 30 mg oral tab 1 tab once daily 7. mirtazapine 30 mg Oral tab 1 tab once daily for depression 8. Oxygen 3L NC nightly 2 LPM continuous 9. ProAir HFA 90 mcg/actuation inhalation HFAA 2 puffs every 6 hours 10. Spiriva with HandiHaler 18 mcg Inhl CpDv 1 cap once daily 11. theophylline 300 mg Oral tab 1 tab every 12 hours 12. venlafaxine 150 mg oral cp24 1 cap twice a day for Anxiety with Depression 13. aspirin 81 mg Oral chew 1 tab once daily 14. Vitamin D Oral 2000 units daily 15. Florajen oral oral daily 16. Santyl 250 unit/gram Topical oint once daily - PMHx: Aortic Aneurysm; arteriosclerotic heart disease; cellulitis; COPD; Diverticulitis; enlarged prostate; Hiatal Hernia; Hypercholesterolemia; Hypertension; Osteoarthritis; Pneumonia; traumatic subarachnoid hemorrhage; PVD; - PSHx: Hernia repair; Carpal Tunnel Repair- Left; Bone Grafting; Cholecystectomy; Cataract Surgery- Bilateral; endovascular AAA repair; L popliteal artery bypass; - Social history: Smoking status: Patient states former smoker of tobacco. No barriers to communication noted, The patient speaks fluent French. - Family history: Not pertinent. - : The pt / caregiver states he / she is not on anticoagulants. Home medication list is obtained from the patient. - Exposure Risk Screening:: None identified. Vital Signs: 05/31 10:40 BP 123 / 59; Pulse 97; Resp 22; Temp 99.0(TE); Pulse Ox 100% on 2 lpm NC; dem1 10:56 BP 113 / 69 (auto/); ms18 10:56 Pulse 95 MON; Pulse Ox 99% ; ms18 11:00 BP 121 / 53 (auto/); ms18 11:00 Pulse 95 MON; Pulse Ox 98% ; ms18 11:15 BP 96 / 60 (auto/); ms18 11:15 Pulse 96 MON; Pulse Ox 98% ; ms18 11:29 BP 94 / 57 (auto/); ms18 11:29 Pulse 97 MON; Pulse Ox 100% ; ms18 11:30 BP 107 / 56 (auto/); ms18 11:30 Pulse 98 MON; Pulse Ox 100% ; ms18 11:44 Pulse 96 MON; Pulse Ox 100% ; ms18 11:45 BP 116 / 57 (auto/); Resp 18; ms18 11:51 Weight 81.9 kg / 180.56 lbs (M); mcp 12:00 BP 128 / 62 (auto/); mcp 12:00 Pulse 92 MON; Resp 20; Pulse Ox 100% ; mcp 12:15 BP 137 / 65 (auto/); mcp 12:15 Pulse 88 MON; Pulse Ox 99% ; mcp 12:30 BP 137 / 65 (auto/); mcp 12:30 Pulse 90 MON; Pulse Ox 100% ; mcp 12:45 BP 154 / 70 (auto/); mcp 12:45 Pulse 90 MON; Pulse Ox 98% ; mcp 13:00 BP 151 / 71 (auto/); mcp 13:00 Pulse 92 MON; Resp 20; Pulse Ox 95% ; mcp 13:15 BP 160 / 65 (auto/); mcp 13:15 Pulse 90 MON; Pulse Ox 100% ; mcp 13:30 BP 156 / 72 (auto/); mcp 13:30 Pulse 91 MON; Pulse Ox 98% ; mcp 13:44 Pulse 96 MON; Pulse Ox 99% ; mcp 13:45 BP 157 / 73 (auto/); mcp 14:15 BP 141 / 68 (auto/); mcp 14:15 Pulse 96 MON; Pulse Ox 98% ; mcp 14:30 BP 135 / 63 (auto/); mcp 14:30 Pulse 98 MON; Pulse Ox 94% ; mcp 15:04 BP 154 / 72; Pulse 101; Resp 22; Temp 96.7(O); Pulse Ox 99% on 2 lpm NC; Pain 0/10; mcp MDM: 10:37 -Blood Culture (Adults Only), peripheral from different site, or from device/port/PICC sd1 etc. if present ordered. 10:37 Call Respiratory ordered. sd1 10:37 [employer]/Pulse Ox/q 15 min VS ordered. sd1 10:37 IV Saline Lock ordered. sd1 10:37 Oxygen at 4L/Min NC or Home dosage ordered. sd1 10:37 Rhythm Strip to chart ordered. sd1 10:37 Albuterol-Ipratropium 1 neb Nebulizer every 20 minutes x3 ordered. sd1 10:38 -Arterial Blood Gas Ordered. EDMS 10:38 -Blood Culture Ordered. EDMS 10:38 B-Type Natiuretic Peptide Ordered. EDMS 10:38 Basic Metabolic Profile Ordered. EDMS 10:38 CBC with Diff Ordered. EDMS 10:38 Cardiac Injury Profile Ordered. EDMS 10:38 Troponin Ordered. EDMS 10:39 Chest, 1 View Ordered. EDMS 10:39 ECG WITH READING ER PHYS+CARDIAG ordered. EDMS 10:40 Call Respiratory complete. sew 10:40 BED REQUEST+ADM ordered. EDMS 10:41 -Blood Culture (Adults Only), peripheral from different site, or from device/port/PICC sew etc. if present complete. 10:42 BLOOD CULTURES Ordered. EDMS 10:47 Lactic Acid (Villavicencio tube on ice) Ordered. EDMS 10:57 -Arterial Blood Gas Reviewed. sd1 11:20 Financial registration complete. lg 11:26 [facility] [place] Agreement was scanned into [employer] and attached to record. lg 11:38 Basic Metabolic Profile Reviewed. sd1 11:38 CBC with Diff Reviewed. sd1 11:38 Cardiac Injury Profile Reviewed. sd1 11:38 Troponin Reviewed. sd1 11:38 Lactic Acid (Villavicencio tube on ice) Reviewed. sd1 11:38 B-Type Natiuretic Peptide Reviewed. sd1 11:38 Chest, 1 View Reviewed. sd1 11:41 NS 0.9% (Sepsis- hypotension or lactate >4mmol/L, 30ml/kg) 30 ml/kg IV at bolus once; sd1 Give in 500mL aliquots, assess for rales 2500cc total ordered. 11:43 Stool samples ordered. sd1 11:44 UA Ordered. EDMS 11:44 Urine Culture Ordered. EDMS 11:45 GASTROINTESTINAL (GI) PANEL Ordered. EDMS 12:44 LOW SODIUM+DIET ordered. EDMS 13:19 Admission / Observation Status ordered. EDMS 13:19 2 GRAM SODIUM DIET ordered. EDMS 13:21 URINALYSIS Ordered. EDMS 13:21 URINE CULTURE Ordered. EDMS 13:23 CARDIAC MARKER PANEL Ordered. EDMS 13:23 CARDIAC MARKER PANEL Ordered. EDMS 13:23 BASIC METABOLIC PROFILE Ordered. EDMS 13:23 LACTIC ACID LEVEL, LACTATE Ordered. EDMS 15:15 T-Sheet-- Draft Copy was scanned into [employer] and attached to record. gb 06/01 10:24 ECG/EKG was scanned into [employer] and attached to record. gb Administered Medications: 05/31 10:50 Drug: Albuterol-Ipratropium 1 neb [ipratropium-albuterol 0.5 mg-3 mg(2.5 mg base)/3 mL kt1 nebulization soln (1 neb)] Route: Nebulizer; 10:51 Drug: Albuterol-Ipratropium 1 neb [ipratropium-albuterol 0.5 mg-3 mg(2.5 mg base)/3 mL kt1 nebulization soln (1 neb)] Route: Nebulizer; 12:08 Drug: NS 0.9% (Sepsis- hypotension or lactate >4mmol/L, 30ml/kg) 2457 ml [sodium ms18 chloride 0.9 % intravenous solution] Route: IV; Rate: bolus; Site: right forearm; Signatures: Dispatcher [employer] EDMS Sylvia Post MD MD sd1 Sandy Caruso RN RN mcp Kirstin Scott, Reg Reg gb Sneha Khanna, Reg Reg lg Sylvia Queen Sharon, RN RN sls2 Delaney Byrnes kt1 Samina Rivero RN ms18 The chart was reviewed and I authenticate all verbal orders and agree with the evaluation and treatment provided.Corrections: (The following items were deleted from the chart) 11:45 11:44 GASTROINTESTINAL (GI) PANEL+ALEX ordered. EDMS EDMS : 11:44 THEOPHYLLINE LEVEL+LAB ordered. EDMS EDMS 13:21 C REACTIVE PROTEIN QUANTITATIV ordered. EDMS EDMS 13:21 ERYTHROCYTE SEDIMENTATION RATE ordered. EDMS EDMS Attachments: 11:26 [facility] Payment Agreement lg 15:15 T-Sheet-- Draft Copy 06/01 10:24 ECG/EKG gb Chart Complete MTDD
[2016-06-02] MEDS: ATORVASTATIN 20 MG TAB PO SCH (20:29)
[2016-06-02] MEDS: MIRTAZAPINE 15 MG TAB PO SCH (20:29)
[2016-06-02] MEDS: PERCOCET 5MG/325MG TAB PO PRN (20:32)
[2016-06-03] MEDS: IPRATROPIUM 0.5MG/ALBUTEROL 2.5MG INH SOL UD 3ML (DUONEB)(J7620) NEB SCH ×5 (00:39→19:09)
[2016-06-03] MEDS: HEPARIN SOD (PORCINE) 5000 UNITS/ML VIAL SC SCH ×3 (05:28→20:45)
[2016-06-03] MEDS: SLF 3 ML SYR IV SCH ×3 (05:28→20:49)
[2016-06-03 05:50] VITALS: BP 156/60
[2016-06-03 06:39] LABS: MEAN CORPUSCULAR HGB CONC 33.4 g/dl (32.0-36.5); MEAN CORPUSCULAR VOLUME 95.9 fl (80.0-96.0); RED CELL DISTRIBUTION WIDTH 14.6 % (11.5-14.5)
[2016-06-03 06:44] LABS: CALCIUM LEVEL 9.5 MG/DL (8.8-10.2); CREATININE FOR GFR 1.6 MG/DL (0.70-1.30); POTASSIUM SERUM 4.4 MEQ/L (3.5-5.1)
--- NOTE | 2016-06-03 07:42 | IPNPDOC ---
Assessment/Plan Date Seen The patient was seen on 06/03/16. Problems Problems: (1) Acute kidney injury superimposed on CKD Status: Resolved Response to Treatment: Improving Problem Text: possibly due to infection , high dose levofloxacin on the back ground of ACEI and diuretic. improving after stopping meds , also received gentle hydration. has baseline creatine of 1.5 to 1.7 , ckd stage 3. (2) COPD (chronic obstructive pulmonary disease) Status: Chronic Problem Text: with acute exacerbation will continue with nebs (3) Peripheral artery disease Status: Chronic (4) Non-healing ulcer of lower leg Status: Chronic Problem Text: due to peripheral artery disease patient to follow up outpateint with vascular surgeon in [place]. (5) Hypertension Status: Chronic (6) Hyperlipidemia Status: Chronic (7) Abdominal aortic aneurysm Status: Chronic Problem Text: has endovascular stent aorto tina placed in 2013. (8) Renal artery stenosis Status: Chronic (9) BPH (benign prostatic hyperplasia) Status: Chronic Problem Text: continue home medications. (10) History of femoropopliteal bypass Status: Chronic (11) H/O endovascular stent graft for abdominal aortic aneurysm Status: Chronic (12) Hypernatremia Status: Resolved Problem Text: will start on 1/2 NS. Plan / VTE VTE Prophylaxis Ordered?: Yes Subjective Review of Systems CC/HPI The patient is a 76-year-old male admitted with a reason for visit of Acute Kidney Failure. Events since last encounter sob still not improving, no fever or chills, no abdominal pain nausea or vomiting, leg redness and pain unchanged. Objective Physical Examination General Exam: Positive: Alert, No Acute Distress Eye Exam: Positive: Conjunctiva & lids normal, EOMI, PERRLA, Negative: Sclera icteric ENT Exam: Positive: Atraumatic, Mucous membr. moist/pink, Pharynx Normal Neck Exam: Positive: Supple, Negative: JVD, thyromegaly Chest Exam: Positive: Diminished, Other (poor bilateral airentry) Heart Exam: Positive: Normal S1, Normal S2, Rate Normal, Regular Rhythm, Negative: Murmurs, Rubs Abdomen Exam: Positive: Normal bowel sounds, Soft, Negative: Hepatospenomegaly, Tenderness Extremity Exam: Positive: Edema, Other (left foor erythematous with ulcer), Tenderness Vital Signs/I&O Vital Signs Date Time Temp Pulse Resp B/P Pulse Ox O2 Delivery O2 Flow Rate FiO2 06/03/16 05:50 96.4 70 18 156/60 90 Nasal Cannula 3.0 I&O- Last 24 Hours up to 6 AM 06/03/16 06:00 Intake Total 960 ml Output Total 1675 ml Balance -715 ml Laboratory Data Labs 24H Laboratory Tests 2 06/03/16 05:54: Anion Gap 8, Blood Urea Nitrogen 31H, Creatinine 1.60H, Sodium Level 150H, Potassium Level 4.4#, Chloride Level 109H, Carbon Dioxide Level 33H, Calcium Level 9.5, Glomerular Filtration Rate 45.0 CBC/BMP Laboratory Tests 06/03/16 05:54 Calcium Level 9.5, Red Blood Count 3.84 L, Mean Corpuscular Volume 95.9, Mean Corpuscular Hemoglobin 32.0, Mean Corpuscular Hemoglobin Concent 33.4, Red Cell Distribution Width 14.6 H Microbiology Microbiology 05/31/16 Blood Culture - Preliminary, Resulted No Growth after 48 hours. All Specime... 05/31/16 Blood Culture - Preliminary, Resulted No Growth after 48 hours. All Specime... 05/31/16 Urine Culture - Final, Complete FATOU SYLVESTER MD Jun 03, 2016 07:42
[2016-06-03] MEDS: BUDESONIDE 0.25 MG/2 ML INHALATION SUSPENSION INH SCH ×2 (08:34→19:09)
[2016-06-03] MEDS: NS 0.45% 1,000 ML IV SCH ×2 (08:54→20:47)
[2016-06-03] MEDS: VENLAFAXINE **XR** 75MG CAPSULE PO SCH ×2 (08:54→20:44)
[2016-06-03] MEDS: amLODIPine 5 MG TAB PO SCH ×2 (08:54→20:46)
[2016-06-03] MEDS: ASPIRIN 81 MG CHEW TABLET PO SCH (08:55)
[2016-06-03] MEDS: VITAMIN D 1,000 INTERNATIONAL UNITS TABLET PO SCH (08:55)
[2016-06-03] MEDS: CARVedilol 12.5 MG TAB PO SCH ×2 (08:55→20:45)
[2016-06-03] MEDS: **hydrALAZINE HCL** 25 MG TAB PEG SCH ×3 (08:55→20:46)
[2016-06-03 14:00] VITALS: BP 148/73
[2016-06-03] MEDS: ATORVASTATIN 20 MG TAB PO SCH (20:43)
[2016-06-03] MEDS: MIRTAZAPINE 15 MG TAB PO SCH (20:44)
[2016-06-03 20:45] VITALS: BP 163/81
[2016-06-04] VITALS (23 sets, daily range): BP systolic 86–230; BP diastolic 52–120
[2016-06-04] MEDS: IPRATROPIUM 0.5MG/ALBUTEROL 2.5MG INH SOL UD 3ML (DUONEB)(J7620) NEB SCH ×6 (02:00→23:05)
[2016-06-04] MEDS: HEPARIN SOD (PORCINE) 5000 UNITS/ML VIAL SC SCH (05:56)
[2016-06-04] MEDS: SLF 3 ML SYR IV SCH ×3 (05:56→21:05)
[2016-06-04 06:36] LABS: MEAN CORPUSCULAR HEMOGLOBIN 32.6 pg (27.0-33.0); MEAN CORPUSCULAR HGB CONC 34.2 g/dl (32.0-36.5); MEAN CORPUSCULAR VOLUME 95.2 fl (80.0-96.0); RED CELL DISTRIBUTION WIDTH 13.6 % (11.5-14.5); WHITE BLOOD COUNT 8.4 K/mm3 (4.0-10.0)
[2016-06-04 06:39] LABS: CALCIUM LEVEL 8.6 MG/DL (8.8-10.2); CREATININE FOR GFR 1.34 MG/DL (0.70-1.30); GLOMERULAR FILTRATION RATE 55.2 (>42); POTASSIUM SERUM 3.6 MEQ/L (3.5-5.1)
[2016-06-04] MEDS: BUDESONIDE 0.25 MG/2 ML INHALATION SUSPENSION INH SCH (08:13)
[2016-06-04] MEDS ORDERED: ALBUTEROL SULFATE 2.5 MG/0.5 ML INH NEB SOLN NEB SCH (08:45)
[2016-06-04] MEDS ORDERED: MAGNESIUM SULFATE 1 GM/100 ML D5W BAG (10MG/ML) (J3475) As Ordered ONE (08:46)
[2016-06-04] MEDS ORDERED: ALBUTEROL SULFATE 2.5 MG/0.5 ML INH NEB SOLN As Ordered ONE (08:54)
[2016-06-04] MEDS ORDERED: methylPREDNISolone INJ 125 MG/2 ML VIAL (J2930) IV STA (08:54)
[2016-06-04] MEDS: MAG SULF 1GM/100ML (MAG RUN) 1 GM in APPROPRIATE DILUENT 1 EA IV SCH ×2 (09:00→10:00)
[2016-06-04 09:02] LABS: ABG BASE EXCESS -3.1 (-2.0-2.0); ABG HCO3 28.7 MEQ/L (22.0-26.0); ABG PARTIAL PRESSURE O2 81.6 mmHg (75.0-100.0); ABG STANDARD HCO3 21.8 MEQ/L (22.0-26.0); ABG TOTAL CO2 31.5 MEQ/L (23.0-31.0)
[2016-06-04 09:04] LABS: ABG pH (ARTERIAL) 7.117 UNITS (7.350-7.450)
[2016-06-04] MEDS ORDERED: MIDAZOLAM INJ 5 MG/ML VIAL (J2250) As Ordered ONE (09:04)
[2016-06-04] MEDS ORDERED: PROPOFOL 1,000 MG/100 ML VIAL As Ordered ONE (09:16)
[2016-06-04] MEDS: PROPOFOL 1,000 MG in APPROPRIATE DILUENT 1 EA IV SCH ×2 (09:30→21:15)
[2016-06-04 09:31] LABS: MEAN CORPUSCULAR HEMOGLOBIN 31.8 pg (27.0-33.0); MEAN CORPUSCULAR HGB CONC 33.4 g/dl (32.0-36.5); MEAN CORPUSCULAR VOLUME 95.3 fl (80.0-96.0); RED CELL DISTRIBUTION WIDTH 14.4 % (11.5-14.5); WHITE BLOOD COUNT 12.5 K/mm3 (4.0-10.0)
--- NOTE | 2016-06-04 09:33 | REP ---
Clinical: Acute hypoxia. Comparison: 05/31/2016. Findings: Endotracheal tube in satisfactory position. Mediastinum and cardiac silhouette are normal / stable. Lung lyons demonstrate chronic interstitial changes trace right lower lobe atelectasis cannot be excluded. No pneumothorax. Skeletal structures intact. Impression: 1. Endotracheal tube in satisfactory position approximately 4 cm above the tc. 2. Chronic interstitial changes with trace right basilar atelectasis suggested. Signed by Bird Sanchez MD 06/04/2016 09:25 A
--- NOTE | 2016-06-04 09:33 | REP ---
Clinical: Status post intubation. Comparison: 05/31/2016. Findings: Endotracheal tube in satisfactory position. Mediastinum and cardiac silhouette are normal / stable. Lung lyons demonstrate chronic interstitial changes trace right lower lobe atelectasis cannot be excluded. No pneumothorax. Skeletal structures intact. Impression: 1. Endotracheal tube in satisfactory position approximately 5 cm above the tc. 2. Chronic interstitial changes with trace right basilar atelectasis suggested. Signed by Bird Sanchez MD 06/04/2016 09:25 A
[2016-06-04 10:07] LABS: ALBUMIN 3.2 GM/DL (3.2-5.2); ALBUMIN/GLOBULIN RATIO 1.28 (1.00-1.93); ALKALINE PHOSPHATASE 98 U/L (45-117); ALT/SGPT 21 U/L (12-78); ANION GAP 10 MEQ/L (8-16); AST/SGOT 25 U/L (15-37); BILIRUBIN,TOTAL 0.4 MG/DL (0.2-1.0); BLOOD UREA NITROGEN 20 MG/DL (7-18); CALCIUM LEVEL 8.4 MG/DL (8.8-10.2); CARBON DIOXIDE LEVEL 28 MEQ/L (21-32); CHLORIDE LEVEL 106 MEQ/L (98-107); CREATININE FOR GFR 1.22 MG/DL (0.70-1.30); GLOMERULAR FILTRATION RATE > 60.0 (>42); GLUCOSE, FASTING 138 MG/DL (83-110); SODIUM LEVEL 144 MEQ/L (136-145); TOTAL PROTEIN 5.7 GM/DL (6.4-8.2)
[2016-06-04] MEDS ORDERED: SODIUM CHLORIDE 0.9% 1000 ML IV ONE (10:15)
[2016-06-04] MEDS: CHLORHEXIDINE GLUCONATE 0.12 % 15ML UDC (PERIDEX ORAL RINSE) MT SCH ×2 (10:27→21:04)
--- NOTE | 2016-06-04 11:11 | IPNPDOC ---
Assessment/Plan Date Seen The patient was seen on 06/04/16. Problems Problems: (1) Acute on chronic respiratory failure with hypoxia and hypercapnia Status: Resolved Problem Text: Unknown why patient went into acute respiratory failure will need to rule out acute cardiac event/PE. NO pneumothorax or flash pulmonary edema seen in CXR. patient intubated for acute hypercarbia care will be transferred to Dr Underwood. (2) Acute metabolic encephalopathy Status: Resolved Problem Text: due to acute hypercarbic respiratory failure (3) Acute kidney injury superimposed on CKD Status: Resolved Response to Treatment: Improving Problem Text: possibly due to infection , high dose levofloxacin on the back ground of ACEI and diuretic. improving after stopping meds , also received gentle hydration. has baseline creatine of 1.5 to 1.7 , ckd stage 3. (4) COPD (chronic obstructive pulmonary disease) Status: Chronic Problem Text: with acute exacerbation will continue with nebs (5) Peripheral artery disease Status: Chronic (6) Non-healing ulcer of lower leg Status: Chronic Problem Text: due to peripheral artery disease patient to follow up outpateint with vascular surgeon in [place]. (7) Hypertension Status: Chronic (8) Hyperlipidemia Status: Chronic (9) Abdominal aortic aneurysm Status: Chronic Problem Text: has endovascular stent aorto tina placed in 2013. (10) Renal artery stenosis Status: Chronic (11) BPH (benign prostatic hyperplasia) Status: Chronic Problem Text: continue home medications. (12) History of femoropopliteal bypass Status: Chronic (13) H/O endovascular stent graft for abdominal aortic aneurysm Status: Chronic (14) Hypernatremia Status: Resolved Problem Text: 1/2 NS stopped Plan / VTE VTE Prophylaxis Ordered?: Yes Subjective Review of Systems CC/HPI The patient is a 76-year-old male admitted with a reason for visit of Acute Kidney Failure. Events since last encounter RAT was called at around 8:30 am for acute on SOB patient was found to be gasping for breath , hypoxic to 70s, semiconscious, patient was last evaluated by nurse and respiratory therapist about 30 mins ago when he received his nebulizer treatment and was feeling good then suddenly developed SOB after finishing the treatment. Chest was almost silent , ABG stat showed severe hypercarbic resp failure with pH of 7.11 and pCO2 of 90. patient was ordered methyl pred 125, 3 back to back nebulizers with albuterol , magnesium 2 gms, moved to ICU and intubated. Intubation was uneventful , CXR did not show any pneumothorax or flash pulmonary edema, there was no aspiration event. Objective Physical Examination General Exam: Positive: Other (obtunded), Severe Distress Eye Exam: Positive: Conjunctiva & lids normal, EOMI, PERRLA, Negative: Sclera icteric ENT Exam: Positive: Atraumatic, Mucous membr. moist/pink, Pharynx Normal Neck Exam: Positive: Supple, Negative: JVD, thyromegaly Chest Exam: Positive: Diminished, Other (silent chest bilaterally) Heart Exam: Positive: Normal S1, Normal S2, Rate Normal, Regular Rhythm, Negative: Murmurs, Rubs Telemetry: Positive: No significant arrhythmia Abdomen Exam: Positive: Normal bowel sounds, Soft, Negative: Hepatospenomegaly, Tenderness Extremity Exam: Positive: Edema, Other (left foor erythematous with ulcer), Tenderness Vital Signs/I&O Vital Signs Date Time Temp Pulse Resp B/P Pulse Ox O2 Delivery O2 Flow Rate FiO2 06/04/16 10:46 90 28 230/120 99 Non-Rebreather 15.0 06/04/16 09:27 40 06/04/16 05:35 98.2 I&O- Last 24 Hours up to 6 AM 06/04/16 06:00 Intake Total 3000 ml Output Total 1625 ml Balance 1375 ml Laboratory Data Labs 24H Laboratory Tests 2 06/04/16 05:24: Anion Gap 8, Blood Urea Nitrogen 23H, Creatinine 1.34H, Sodium Level 144, Potassium Level 3.6, Chloride Level 104, Carbon Dioxide Level 32, Calcium Level 8.6L, Glomerular Filtration Rate 55.2 06/04/16 08:47: Arterial Blood pH 7.117*L, Arterial Blood Partial Pressure CO2 91.0*H, Arterial Blood Partial Pressure O2 81.6, Arterial Blood Total CO2 31.5H, Arterial Blood HCO3 28.7H, Arterial Blood Base Excess -3.1L, Arterial Blood Oxygen Saturation 92.7L, Arterial Blood Gas Puncture Site NOT GIVEN, Blood Gas Bicarbonate Standard 21.8L 06/04/16 09:09: Anion Gap 10, Blood Urea Nitrogen 20H, Creatinine 1.22, Sodium Level 144, Potassium Level 4.0, Chloride Level 106, Carbon Dioxide Level 28, Calcium Level 8.4L, Glomerular Filtration Rate > 60.0, Aspartate Amino Transf (AST/SGOT) 25, Alanine Aminotransferase (ALT/SGPT) 21, Alkaline Phosphatase 98, Total Bilirubin 0.4, Total Protein 5.7L, Albumin 3.2, Albumin/Globulin Ratio 1.28, B- Type Natriuretic Peptide 320H, Lactic Acid Level 1.6, Troponin I 0.09 CBC/BMP Laboratory Tests 06/04/16 05:24 Calcium Level 8.6 L, Red Blood Count 3.49 L, Mean Corpuscular Volume 95.2, Mean Corpuscular Hemoglobin 32.6, Mean Corpuscular Hemoglobin Concent 34.2, Red Cell Distribution Width 13.6 06/04/16 09:09 Calcium Level 8.4 L, Red Blood Count 3.78 L, Mean Corpuscular Volume 95.3, Mean Corpuscular Hemoglobin 31.8, Mean Corpuscular Hemoglobin Concent 33.4, Red Cell Distribution Width 14.4, Aspartate Amino Transf (AST/SGOT) 25, Alanine Aminotransferase (ALT/SGPT) 21, Alkaline Phosphatase 98, Total Bilirubin 0.4, Total Protein 5.7 L, Albumin 3.2 Microbiology Microbiology 05/31/16 Blood Culture - Preliminary, Resulted No Growth after 72 hours. All specime... 05/31/16 Blood Culture - Preliminary, Resulted No Growth after 72 hours. All specime... 06/04/16 MRSA Screen, Received Pending 05/31/16 Urine Culture - Final, Complete FATOU SYLVESTER MD Jun 04, 2016 11:05
[2016-06-04] MEDS ORDERED: ALBUTEROL SULFATE 2.5 MG/0.5 ML INH NEB SOLN NEB PRN (11:15)
[2016-06-04] MEDS ORDERED: MORPHINE 2 MG/ML 1ML SYRINGE IV PRN (11:15)
[2016-06-04 11:30] LABS: ABG BASE EXCESS 1.2 (-2.0-2.0); ABG HCO3 27.5 MEQ/L (22.0-26.0); ABG PARTIAL PRESSURE CO2 50.9 mmHg (35.0-45.0); ABG PARTIAL PRESSURE O2 116.7 mmHg (75.0-100.0); ABG STANDARD HCO3 25.6 MEQ/L (22.0-26.0)
[2016-06-04] MEDS: MIDAZOLAM INJ 2 MG/2 ML VIAL (J2250) IV PRN ×2 (11:37→21:12)
[2016-06-04] MEDS: PANTOPRAZOLE 40MG INJ (PROTONIX) (C9113) IV SCH (11:51)
[2016-06-04] MEDS: ASPIRIN 300 MG SUPP PR SCH (11:51)
[2016-06-04] MEDS: D5W/0.45% SODIUM CHLORIDE 1,000 ML IV SCH (14:58)
[2016-06-04] MEDS ORDERED: methylPREDNISolone INJ 125 MG/2 ML VIAL (J2930) IV SCH ×2 (15:00→18:00)
[2016-06-04] MEDS: CARVedilol 12.5 MG TAB PO SCH (21:04)
[2016-06-04] MEDS: methylPREDNISolone INJ 40 MG/1 ML VIAL (J2920) IV SCH (21:05)
--- NOTE | 2016-06-04 22:16 | ECGEPIP ---
Stationary ECG Study [facility] Test Date: 2016-06-04 Pat Name: LEAH PRO Department: Room: [place] [address] Gender: M Product Safety Officer: : 1940 Requested By: FATOU SYLVESTER Order Number: [id number] Reading MD: Kalin Millan Measurements Intervals [place] Rate: 71 P: 90 ND: 125 QRS: 55 QRSD: 97 T: 81 QT: 405 QTc: 441 Interpretive Statements SINUS RHYTHM NONSPECIFIC ST & T-WAVE ABNORMALITY, CONSIDER ISCHEMIA COMPARED TO THE LAST 2 TRACINGS DONE IN THE MONTH OF May 2016, NO SIGNIFICANT CHANGES Electronically Signed On 06-04-2016 22:16:26 EST by Kalin Millan
[2016-06-05] VITALS (24 sets, daily range): BP systolic 92–197; BP diastolic 51–96
[2016-06-05] MEDS: MIDAZOLAM INJ 2 MG/2 ML VIAL (J2250) IV PRN ×3 (01:56→06:41)
[2016-06-05] MEDS: D5W/0.45% SODIUM CHLORIDE 1,000 ML IV SCH ×3 (02:59→20:09)
[2016-06-05] MEDS: IPRATROPIUM 0.5MG/ALBUTEROL 2.5MG INH SOL UD 3ML (DUONEB)(J7620) NEB SCH ×5 (03:03→19:23)
[2016-06-05 04:31] LABS: BASO % 0.5 % (0.0-1.0); EOS % 0.2 % (0.0-3.0); LARGE UNSTAINED CELL % 0.5 % (0.0-4.0); LYMPH # 0.7 K/mm3 (1.5-4.5); LYMPH % 9.5 % (24.0-44.0); MEAN CORPUSCULAR HEMOGLOBIN 31.7 pg (27.0-33.0); MEAN CORPUSCULAR VOLUME 93.1 fl (80.0-96.0); MONO # 0.2 K/mm3 (0.0-0.8); MONO % 2.5 % (0.0-5.0); NEUTROPHILS # 6.1 K/mm3 (1.8-7.7); NEUTROPHILS % 86.8 % (36.0-66.0); RED CELL DISTRIBUTION WIDTH 14.2 % (11.5-14.5); WHITE BLOOD COUNT 7.1 K/mm3 (4.0-10.0)
[2016-06-05 04:51] LABS: CALCIUM LEVEL 7.9 MG/DL (8.8-10.2); CREATININE FOR GFR 1.61 MG/DL (0.70-1.30); GLOMERULAR FILTRATION RATE 44.6 (>42); POTASSIUM SERUM 3.7 MEQ/L (3.5-5.1)
[2016-06-05 04:52] LABS: ALBUMIN 2.6 GM/DL (3.2-5.2); ALBUMIN/GLOBULIN RATIO 0.96 (1.00-1.93); BILIRUBIN,TOTAL 0.3 MG/DL (0.2-1.0); PHOSPHORUS LEVEL 3.1 MG/DL (2.5-4.9); TOTAL PROTEIN 5.3 GM/DL (6.4-8.2)
[2016-06-05 05:04] LABS: PLATELET COUNT, AUTOMATED 93 k/mm3 (150-450)
[2016-06-05] MEDS: SLF 3 ML SYR IV SCH ×3 (05:18→21:58)
[2016-06-05] MEDS: PROPOFOL 1,000 MG in APPROPRIATE DILUENT 1 EA IV SCH (06:12)
[2016-06-05] MEDS: PANTOPRAZOLE 40MG INJ (PROTONIX) (C9113) IV SCH (07:55)
[2016-06-05] MEDS: methylPREDNISolone INJ 40 MG/1 ML VIAL (J2920) IV SCH (07:55)
[2016-06-05] MEDS: CHLORHEXIDINE GLUCONATE 0.12 % 15ML UDC (PERIDEX ORAL RINSE) MT SCH (07:55)
[2016-06-05] MEDS: ASPIRIN 300 MG SUPP PR SCH (07:56)
--- NOTE | 2016-06-05 08:52 | REP ---
Clinical: Status post intubation . Comparison: 06/04/2016 . Findings: Endotracheal tube approximately 3.8 cm above the tc. Nasogastric tube courses below the left hemidiaphragm. The mediastinum and cardiac silhouette are stable and within normal limits for portable technique. The lung lyons suggest minimal left basilar atelectasis. No effusion. No pneumothorax. Skeletal structures are intact. Impression: ? Minimal left basilar atelectasis. Signed by Bird Sanchez MD 06/05/2016 08:43 A
[2016-06-05 10:43] LABS: ABG BASE EXCESS 1.6 (-2.0-2.0); ABG HCO3 25.3 MEQ/L (22.0-26.0); ABG PARTIAL PRESSURE CO2 36.8 mmHg (35.0-45.0); ABG PARTIAL PRESSURE O2 83.6 mmHg (75.0-100.0); ABG STANDARD HCO3 25.8 MEQ/L (22.0-26.0); ABG TOTAL CO2 26.4 MEQ/L (23.0-31.0); ABG pH (ARTERIAL) 7.455 UNITS (7.350-7.450)
[2016-06-05] MEDS: CARVedilol 12.5 MG TAB PO SCH ×2 (12:55→20:10)
[2016-06-05] MEDS: ACETAMINOPHEN TAB 650MG DOSE (2X325MG) PO PRN (13:03)
[2016-06-05] MEDS: HEPARIN SOD (PORCINE) 5000 UNITS/ML VIAL SQ SCH ×2 (13:13→20:09)
--- NOTE | 2016-06-05 19:45 | CCN ---
DATE: 06/04/[address] Shefali Ching to emergently evaluate Mr. Flores for acute and chronic hypercapnic respiratory failure leading to mechanical ventilation. Mr. Flores is a 76-year-old white male with known history of chronic obstructive pulmonary disease, chronic kidney disease, hypertension, chronic peripheral atrial disease who presented to the emergency department om 05/31/2016 with increased shortness of breath and generalized weakness. Just prior to presentation, he had been diagnosed with a cellulitis and had completed a course of Levaquin. He also had constipation and therefore had taken more than usual of his bowel movement preparation and had four semi-loose watery stools the day prior to admission. Upon arrival to the emergency department (ED), he was found to be hypovolemic with a blood pressure of 94.57 and having worsened renal function with a creatinine of 3.7 (1.5 on 05/25/2016) and an elevated lactate level at 3.1. It was felt that most of his difficulties were secondary to hypovolemia and he was given a fluid bolus and admitted to the floor. His arterial blood gas in the emergency department (ED) was essentially normal. When he was first admitted it was not felt that he had a chronic obstructive pulmonary disease exacerbation and was kept on his home regimen. A couple of days later he was listed in the chart with being considered to have a chronic obstructive pulmonary disease exacerbation but I did not see a change in medications. I was verbally told that he did have an episode where had acute bronchospasm that responded to back to back nebulization treatment. I believe that was in the past day of two. This morning, he was felt to be doing well and in fact there were plans to discharge him. He seemed to be in his usual state and was talking to hospital personnel. Apparently approximately 10 minutes later he was found to be unresponsive with "guppy" breathing and very little air movement. A rapid response team was called and he was transported down to the intensive care unit. It was that his breathing was too shallow to even consider noninvasive mechanical ventilation and he was intubated. Upon my arrival he was intubated and desynchronous with the ventilator. However several manipulations were made and he was synchronous. When he was, there was no evidence of bronchospasm based on lung mechanics and his exam showed fair air entry but he did not have a prolonged expiratory phase. Once on his decompensation he had been given a stat dosage of Solu-Medrol as well as magnesium. MEDICATIONS: On admission to the hospital - albuterol nebulizations every 4 hours as needed - Pro Air one puff every 4 hours as needed - Brovana nebulization twice a day - aspirin 81 mg by mouth every day - atorvastatin 40 mg by mouth at bedtime - carvedilol 12.5 mg by mouth twice a day - vitamin D 1,000 units by mouth every day - Florajen3 one cap by mouth every day - Levaquin 750 mg by mouth every day - lisinopril 30 mg by mouth every day - mirtazapine 30 mg by mouth at bedtime - theophylline 300 mg by mouth twice a day - Spiriva Respimat 2 puffs daily - venlafaxine 150 mg by mouth every day - Lasix 40 mg by mouth every day - lidocaine patch right foot as needed - prednisone 10 mg - 3 liters by nasal canula MEDICATIONS ON TRANSFER TO THE ICU - albuterol nebulization every 4 hours as needed - DuoNeb every 6 hours - Norvasc 5 mg by mouth twice a day - aspirin 81 mg by mouth every day - atorvastatin 40 mg by mouth at bedtime - budesonide nebulization twice a day - Coreg 12.5 mg by mouth twice a day - heparin 5,000 units subcutaneous every 8 hours - hydralazine 25 mg by mouth three times a day - Remeron 30 mg by mouth at bedtime - Effexor 150 mg by mouth twice a day - Vitamin D 1,000 units by mouth every day PHYSICAL EXAMINATION; GENERAL: Mr. Flores is lying in bed in no acute distress. After manipulations he is synchronous with the ventilator. VITAL SIGNS: Temperature 98.2, pulse 66, respiratory rate 20, blood pressure 86/54 with a MAP of 65, SpO2 95% on FiO2 0.4. HEENT: Anicteric. Pupils 3 mm and reactive. Nares: Patent bilaterally. Moist mucosa. Oropharynx ET tube and OG tube in place. NECK: Supple, without apparent jugular venous distention. No thyromegaly or masses. TRACHEA: Is midline . LYMPHS: Without cervical or supraclavicular lymphadenopathy. LUNGS: Symmetric excursion, generalized diminished air entry, no wheeze, rhonchi or significant crackle heard on tidal excursion. Normal to mildly prolonged expiratory phase. No accessory muscle usage or retractions. CARDIOVASCULAR: Regular rate and rhythm with a normal S1, S2. No murmur, rub or gallop appreciated. ABDOMEN: Mildly diminished bowel sounds, soft, non-distended, no hepatosplenomegaly. No masses appreciated. EXTREMITIES: 1+ pitting pedal edema bilaterally without clubbing or cyanosis. Palpable pedal pulses bilaterally. SKIN: Notable for multiple shallow ulcers on his feet bilaterally. LABORATORY DATA: Chemistry: Sodium 144, potassium 4.0, chloride 106, bicarbonate 28, anion gap 10, BUN 20, creatinine 1.22, glucose 138, lactic acid 1.6, calcium 8.4, total bilirubin 0.4, AST 25, ALT 21, alkaline phosphatase 98. BNP 320, total protein 5.7, albumin 3.2. CBC showed a hemoglobin of 12, hematocrit 36, platelet count 115,000, WBC 12,500. Initial arterial blood gas was 7.12/91/82 with a base excess of -3.1 and a measured saturation of 93%. A couple of hours after being on the ventilator, his arterial blood gas was 7.35/51/117 with a measured saturation of 98.1. I reviewed his chest x-ray as well as the report, that x-ray revealed normal appearing cardiac silhouette and pulmonary vascular shadows. Normal appearing mediastinal region. On the second film the ET tube was in good position. There were chronic changes but no acute infiltrates. IMPRESSION: 1. Acute on chronic respiratory failure. It is unclear as to what the inciting event was. The events occurred over a 10 minute period of time which is not typical for a chronic obstructive pulmonary disease exacerbation. He had just finished a nebulized treatment so acute bronchospasm is unlikely and also he did not have evidence of it shortly after being intubated. Differential would have to include cardiac ischemia (ST segments did appear to be down on the monitor but with improvement over time though his electrocardiogram was essentially unchanged compared to admission), pulmonary emboli (unlikely), aspiration (no history to suggest that), or other. Regardless of the perturbation, I suspect that he could not appropriately compensate for any cause for a need for increased minute ventilation likely in large part responsible for his respiratory acidemia. 2. Chronic obstructive pulmonary disease, with hypercapnia and hypoxemia at baseline. He is also on chronic steroids. 3. Chronic kidney disease. He was admitted with an acute component which appeared to be related to hypovolemia and which is resolved. 4. Peripheral artery disease. 5. Hypertension. RECOMMENDATIONS: 1. We will continue for the present time mechanical ventilation. I do not think he is rapidly reversed his difficulties and I do not anticipate a long term care pharmacist intubation. 2. We will continue with bronchodilators. 3. As his history is not consistent with chronic obstructive pulmonary disease exacerbation we will markedly diminish his corticosteroids. 4. Agree with plan to rule out for myocardial infarction. We will obtain an echocardiogram. I see an echocardiogram from 2013 at which time he had some evidence of diastolic dysfunction and mild pulmonary hypertension. PROGNOSIS: Guarded. CRITICAL CARE TIME: One hour not including procedure time.
[2016-06-05] MEDS: amLODIPine 5 MG TAB PO SCH (20:11)
[2016-06-05] MEDS: THEOPHYLLINE 300 MG PO SCH (21:00)
[2016-06-06] VITALS (11 sets, daily range): BP systolic 121–196; BP diastolic 76–93
[2016-06-06 05:17] LABS: BASO % 0.4 % (0.0-1.0); EOS % 0.2 % (0.0-3.0); LARGE UNSTAINED CELL # 0.2 K/mm3 (0.0-0.4); LARGE UNSTAINED CELL % 1.5 % (0.0-4.0); LYMPH # 1.4 K/mm3 (1.5-4.5); LYMPH % 11.1 % (24.0-44.0); MEAN CORPUSCULAR HEMOGLOBIN 31.3 pg (27.0-33.0); MEAN CORPUSCULAR HGB CONC 33.1 g/dl (32.0-36.5); MEAN CORPUSCULAR VOLUME 94.6 fl (80.0-96.0); MONO # 0.7 K/mm3 (0.0-0.8); NEUTROPHILS # 9.3 K/mm3 (1.8-7.7); NEUTROPHILS % 80.9 % (36.0-66.0); PLATELET COUNT, AUTOMATED 113 k/mm3 (150-450); RED CELL DISTRIBUTION WIDTH 14.5 % (11.5-14.5); WHITE BLOOD COUNT 11.5 K/mm3 (4.0-10.0)
[2016-06-06 05:20] LABS: ALBUMIN 2.9 GM/DL (3.2-5.2); ALBUMIN/GLOBULIN RATIO 0.97 (1.00-1.93); BILIRUBIN,TOTAL 0.3 MG/DL (0.2-1.0); CALCIUM LEVEL 8.3 MG/DL (8.8-10.2); CREATININE FOR GFR 1.28 MG/DL (0.70-1.30); GLOMERULAR FILTRATION RATE 58.2 (>42); MAGNESIUM LEVEL 1.9 MG/DL (1.8-2.4); PHOSPHORUS LEVEL 2.2 MG/DL (2.5-4.9); POTASSIUM SERUM 3.5 MEQ/L (3.5-5.1); TOTAL PROTEIN 5.9 GM/DL (6.4-8.2)
[2016-06-06] MEDS: SLF 3 ML SYR IV SCH ×3 (06:00→21:27)
--- NOTE | 2016-06-06 06:08 | ECHO ---
DATE OF PROCEDURE: 06/05/2016 DATE OF : 1940 AGE: 76 REFERRING PROVIDER: Dr. Enrico Underwood. PATIENT LOCATION: Room 3206. REASON FOR ECHOCARDIOGRAM: Shortness of breath. 2D MEASUREMENTS: IVS: 1.4 cm LV: 4.4 cm LVPW: 1.4 cm LA: 3.4 cm Aorta: 3.6 cm DOPPLER MEASUREMENTS: Peak velocity across the aortic valve: 1.5 m/s Peak velocity across the LVOT: 0.65 m/s Mitral E: 0.27 Mitral A: 0.66 Ratio 0.4 2D COMMENTS: 1. Normal left ventricular size with mildly increased left ventricular wall thickness and a normal global left ventricular systolic function. The estimated global left ventricular systolic ejection fraction is 60% to 65%. 2. Normal left atrium. Normal right atrium and right ventricle. There may be features of right ventricular hypertrophy. 3. The atrial septum appeared to be normal without evidence of defect or shunt. 4. Normal aortic root. 5. Trace to small pericardial effusion noted, no evidence of cardiac tamponade. 6. Mildly calcified aortic valve with normal leaflet motion. Mildly calcified mitral annulus with normal anterior mitral valve leaflet motion. Normal tricuspid valve. The pulmonic valve and proximal pulmonary artery branches were not well visualized. 7. The inferior vena cava was not visualized. DOPPLER: It detects trace to mild aortic regurgitation, trace to mild mitral regurgitation. Abnormal relaxation pattern was noted across the mitral valve leaflets as well as the mitral valve annulus. IMPRESSION: 1. Normal global left ventricular systolic function with mild concentric left ventricular hypertrophy. There are features of left ventricular diastolic dysfunction, grade 1. 2. Aortic valve sclerosis with trace to mild aortic regurgitation. 3. Mitral annulus calcification with trace to mild mitral regurgitation. 4. Trace to small pericardial effusion, no evidence of cardiac tamponade.
[2016-06-06] MEDS: HEPARIN SOD (PORCINE) 5000 UNITS/ML VIAL SQ SCH ×3 (06:13→21:26)
[2016-06-06] MEDS: IPRATROPIUM 0.5MG/ALBUTEROL 2.5MG INH SOL UD 3ML (DUONEB)(J7620) NEB SCH ×4 (08:00→20:00)
[2016-06-06] MEDS: BUDESONIDE 0.5 MG/2 ML INHALATION SUSPENSION INH SCH ×2 (08:00→20:50)
[2016-06-06] MEDS: ACETAMINOPHEN TAB 650MG DOSE (2X325MG) PO PRN (08:00)
--- NOTE | 2016-06-06 08:42 | CCN ---
DATE: 06/05/2016 NOTE: Mr. Flores remains critically ill with acute and chronic hypercapnic respiratory failure leading to mechanical ventilation. This morning, his PEEP was initially dropped from 8 to 5. He had been on 8 to counter likely auto PEEP. He was a little more desynchronous on this level, but did reasonably well. On his propofol sedation holiday, he was following commands and indicated no discomfort except in his throat from the endotracheal tube. He was then changed to a weaning trial with a pressure support of 5 over a PEEP of 5. On this setting he did very well with a rapid shallow breathing index in the 20s. An arterial blood gas was drawn, which was appropriate and it was felt that he was ready for extubation. He was successfully extubated and is now on a aerosol mask. He indicates that he is getting enough air. He has no discomfort except in his throat. OBJECTIVE/PHYSICAL EXAMINATION: GENERAL: Mr. Flores is lying in bed intubated and synchronous with the ventilator. VITAL SIGNS: Temperature 96.3, with a T-max of 98.3, blood pressure 126/62, heart rate 61, respiratory rate 16. SpO2 98% on an FiO2 of 0.3. HEENT: Anicteric, pupils 4 mm and reactive. Nares patent bilaterally with moist mucosa. Oropharynx ET tube and OG tube in place. NECK: Supple, without thyromegaly or masses, trachea is midline. LUNGS: Symmetric excursion, generalized diminished air entry. No wheeze, rhonchi or crackle on tidal excursion. Prolonged expiratory phase. No accessory muscle usage or retractions. CARDIOVASCULAR: Distant, regular rhythm, No murmur, rub or gallop appreciated. ABDOMEN: Positive bowel sounds, soft, nondistended, no hepatosplenomegaly or masses appreciated. EXTREMITIES: Trace to 1+ pedal edema, no clubbing or cyanosis, palpable pedal pulses bilaterally. SKIN: There are shallow ulcers on both feet from his peripheral artery disease. No active appearing infection. LABORATORY DATA: CBC showed a hemoglobin of 10.6, hematocrit 31.2, platelet count 93,000, white blood cells 7100 with a differential of 87% neutrophils and 10% lymphocytes. Chemistries showed a sodium 141, potassium 3.7, chloride 104, bicarbonate 27, anion gap 10, BUN 26, creatinine 1.6 (increased from 1.2), glucose 229, calcium 7.9, phosphorous 3.1, magnesium 2.0, total bilirubin 0.3, AST 14, ALT 17, alkaline phosphatase 75, LDH 210, CK 49, total protein 5.3, albumin 2.6. Arterial blood gas on a weaning trial of pressure support of 5 and PEEP 5 with an FiO2 of 0.35 was 7.46/37/84 with a measured saturation of 96%. I reviewed his chest x-ray as well as the report from earlier this morning. That x-ray showed normal appearing cardiac silhouette and pulmonary vascular shadows. No consolidated regions. Endotracheal tube is i appropriate position. Yesterday's intake and output were 3286 in and 2495 out, making him positive 791. Thus far today, 1250 in and 712 out making him positive 538. IMPRESSION: 1. Acute on chronic hypercapnic respiratory failure requiring mechanical ventilation. The exact etiology of his acute process is not known. It did occur quite suddenly. He had just received a bronchodilator. He reportedly had no received any of his morning medications. Differential would include ischemia, anxiety, aspiration or other. It is not consistent with a COPD exacerbation and there were no findings on evaluation suggestive of acute bronchospasm. 2. Chronic obstructive pulmonary disease (COPD), likely very severe at baseline. He is on 3 liters by nasal cannula at home along with theophylline and prednisone. 3. Acute renal insufficiency. 4. Peripheral artery disease. He is scheduled to see a surgeon in [place] in the near future. 5. Deep vein thrombosis (DVT) prophylaxis in place with subcutaneous heparin. 6. Stress ulcer prophylaxis in place with Protonix. 7. Hypertension. RECOMMENDATIONS: 1. Proceeded with extubation as noted above. 2. Will restart outpatient medications. 3. I believe he warrants cardiac monitoring for the next couple of days as high on the differential would be the ischemia. 4. Await echocardiogram results. PROGNOSIS: Remains guarded given his multiple comorbidities. CRITICAL CARE TIME: 40 minutes not including procedures.
[2016-06-06] MEDS: CARVedilol 12.5 MG TAB PO SCH ×2 (08:54→21:26)
[2016-06-06] MEDS: ASPIRIN 81 MG CHEW TABLET PO SCH (08:54)
[2016-06-06] MEDS: amLODIPine 5 MG TAB PO SCH ×2 (08:55→21:27)
[2016-06-06] MEDS: PANTOPRAZOLE 40MG TAB (PROTONIX) PO SCH (08:55)
[2016-06-06] MEDS ORDERED: predniSONE 10 MG TAB PO SCH (09:00)
[2016-06-06] MEDS: THEOPHYLLINE 300 MG PO SCH ×3 (09:00→21:26)
--- NOTE | 2016-06-06 09:56 | RO ---
DATE OF PROCEDURE: 06/04/2016 PREOPERATIVE DIAGNOSIS: Acute respiratory failure with hypoxia. POSTOPERATIVE DIAGNOSIS: Acute respiratory failure with hypercapnia and hypoxia. PROCEDURE: Endotracheal intubation. SURGEON: Dr. Shefali Ching TRANSFUSION AIDE: ANESTHESIA: BLOOD LOSS: None. SEDATION: None. DESCRIPTION OF PROCEDURE: The patient was placed in supine position. The patient was Ambu bagged to reach oxygenation of 100%. Then a curved Mac 4 blade was used. The epiglottis and vocal cords were visualized and a #8 endotracheal tube was inserted successfully in a single attempt. The tube was fixed at 24 cm lip line. End tidal carbon dioxide was checked with appropriate collar change. Bilateral chest auscultation was done; however, there was already poor air entry bilaterally. Chest x-ray was done which showed endotracheal tube a little high in position so it was inserted by 2 more cm. Auscultation was rechecked with equal air entry in both sides. There was no pneumothorax on the chest x-ray. The patient tolerated the procedure without any complications.
[2016-06-06] MEDS: FORMOTEROL FUMARATE 20 MCG/2 ML INHALATION SOLUTION (PERFOROMIST) INH SCH ×2 (11:21→20:50)
[2016-06-06] MEDS: TIOTROPIUM INHALER/CAPSULE (SPIRIVA) INH SCH (11:38)
--- NOTE | 2016-06-06 15:42 | REP ---
PORTABLE CHEST; AP portable view of the chest is performed and compared to prior study of 06/05/2016. Endotracheal tube and nasogastric tube have been removed. No new infiltrates are seen. Heart is upper limits of normal in size. There is calcification of the thoracic aorta. The mediastinal silhouette is unchanged. There are degenerative changes of the spine. IMPRESSION: No acute infiltrate. Signed by Gallito Villavicencio MD 06/07/2016 05:05 P
[2016-06-07] VITALS: BP 135/65
[2016-06-07 04:00] VITALS: BP 168/83
[2016-06-07] MEDS: HEPARIN SOD (PORCINE) 5000 UNITS/ML VIAL SQ SCH ×3 (04:51→20:11)
[2016-06-07 05:01] LABS: BASO # 0.1 K/mm3 (0.0-0.2); BASO % 0.7 % (0.0-1.0); EOS # 0.2 K/mm3 (0.0-0.50); EOS % 1.9 % (0.0-3.0); LARGE UNSTAINED CELL # 0.2 K/mm3 (0.0-0.4); LARGE UNSTAINED CELL % 2.2 % (0.0-4.0); LYMPH # 2.4 K/mm3 (1.5-4.5); LYMPH % 22.9 % (24.0-44.0); MEAN CORPUSCULAR HEMOGLOBIN 32.7 pg (27.0-33.0); MEAN CORPUSCULAR HGB CONC 33.6 g/dl (32.0-36.5); MEAN CORPUSCULAR VOLUME 97.1 fl (80.0-96.0); MONO # 0.7 K/mm3 (0.0-0.8); MONO % 7.7 % (0.0-5.0); NEUTROPHILS # 6.2 K/mm3 (1.8-7.7); NEUTROPHILS % 64.6 % (36.0-66.0); PLATELET COUNT, AUTOMATED 124 k/mm3 (150-450); RED CELL DISTRIBUTION WIDTH 14.4 % (11.5-14.5); WHITE BLOOD COUNT 9.5 K/mm3 (4.0-10.0)
[2016-06-07 05:28] LABS: ALBUMIN 2.9 GM/DL (3.2-5.2); ALBUMIN/GLOBULIN RATIO 0.94 (1.00-1.93); BILIRUBIN,TOTAL 0.4 MG/DL (0.2-1.0); CALCIUM LEVEL 8.5 MG/DL (8.8-10.2); CREATININE FOR GFR 1.36 MG/DL (0.70-1.30); GLOMERULAR FILTRATION RATE 54.2 (>42); MAGNESIUM LEVEL 1.7 MG/DL (1.8-2.4); PHOSPHORUS LEVEL 2.2 MG/DL (2.5-4.9); POTASSIUM SERUM 3.3 MEQ/L (3.5-5.1)
[2016-06-07] MEDS: SLF 3 ML SYR IV SCH ×3 (06:00→21:49)
[2016-06-07] MEDS: TIOTROPIUM INHALER/CAPSULE (SPIRIVA) INH SCH (07:47)
[2016-06-07] MEDS: BUDESONIDE 0.5 MG/2 ML INHALATION SUSPENSION INH SCH ×2 (07:47→19:47)
[2016-06-07] MEDS: FORMOTEROL FUMARATE 20 MCG/2 ML INHALATION SOLUTION (PERFOROMIST) INH SCH ×2 (07:47→19:47)
[2016-06-07] MEDS: IPRATROPIUM 0.5MG/ALBUTEROL 2.5MG INH SOL UD 3ML (DUONEB)(J7620) NEB SCH ×4 (07:48→19:47)
[2016-06-07 08:00] VITALS: BP 166/98
[2016-06-07] MEDS: ASPIRIN 81 MG CHEW TABLET PO SCH (09:58)
[2016-06-07] MEDS: amLODIPine 5 MG TAB PO SCH ×2 (09:58→20:12)
[2016-06-07] MEDS: PANTOPRAZOLE 40MG TAB (PROTONIX) PO SCH (09:58)
[2016-06-07] MEDS: CARVedilol 12.5 MG TAB PO SCH ×2 (09:58→20:12)
[2016-06-07] MEDS: POTASSIUM CHLORIDE 10 MEQ SR TABLET PO SCH (09:58)
[2016-06-07] MEDS: THEOPHYLLINE 300 MG PO SCH ×2 (10:00→20:13)
[2016-06-07 12:00] VITALS: BP 167/93
--- NOTE | 2016-06-07 13:36 | IPNPDOC ---
Assessment/Plan Date Seen The patient was seen on 06/07/16. Problems Problems: (1) Acute on chronic respiratory failure with hypoxia and hypercapnia Status: Resolved Problem Text: Unknown why patient went into acute respiratory failure maybe secondary to cardiac event will likely need oupt cardiac workup NO pneumothorax or flash pulmonary edema seen in CXR. pt extubated, currently on 2L of oxygen (2) Acute metabolic encephalopathy Status: Resolved (3) Acute kidney injury superimposed on CKD Status: Resolved Problem Text: possibly due to infection , high dose levofloxacin on the back ground of ACEI and diuretic. 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 (7) Hypertension Status: Chronic (8) Hyperlipidemia Status: Chronic (9) Abdominal aortic aneurysm Status: Chronic Problem Text: has endovascular stent aorto tina placed in 2013. (10) Renal artery stenosis Status: Chronic (11) BPH (benign prostatic hyperplasia) Status: Chronic Problem Text: continue home medications. (12) History of femoropopliteal bypass Status: Chronic (13) H/O endovascular stent graft for abdominal aortic aneurysm Status: Chronic (14) Hypernatremia Status: Resolved Problem Text: Plan / VTE VTE Prophylaxis Ordered?: Yes Subjective Review of Systems CC/HPI The patient is a 76-year-old male admitted with a reason for visit of Acute Kidney Failure. Constitutional: Denies: Chills, Fever, Malaise, Night Sweats, Weakness Cardiovascular: Denies: Chest Pain, Lt Headedness, Orthopnea, Palpitations, Paroxysmal Noc. Dyspnea Objective Physical Examination General Exam: Positive: Other (obtunded), Severe Distress Eye Exam: Positive: Conjunctiva & lids normal, EOMI, PERRLA, Negative: Sclera icteric ENT Exam: Positive: Atraumatic, Mucous membr. moist/pink, Pharynx Normal Neck Exam: Positive: Supple, Negative: JVD, thyromegaly Chest Exam: Positive: Diminished, Other (silent chest bilaterally) Heart Exam: Positive: Normal S1, Normal S2, Rate Normal, Regular Rhythm, Negative: Murmurs, Rubs Telemetry: Positive: No significant arrhythmia Abdomen Exam: Positive: Normal bowel sounds, Soft, Negative: Hepatospenomegaly, Tenderness Extremity Exam: Positive: Edema, Other (left foor erythematous with ulcer), Tenderness Vital Signs/I&O Vital Signs Date Time Temp Pulse Resp B/P Pulse Ox O2 Delivery O2 Flow Rate FiO2 06/07/16 12:00 97.9 87 18 167/93 94 Room Air 06/07/16 08:00 2.0 06/05/16 12:01 40 I&O- Last 24 Hours up to 6 AM 06/07/16 06:00 Intake Total 1120 ml Output Total 2350 ml Balance -1230 ml Laboratory Data Labs 24H Laboratory Tests 2 06/07/16 04:46: Blood Urea Nitrogen 26H, Creatinine 1.36H, Sodium Level 144, Potassium Level 3.3L, Chloride Level 103, Carbon Dioxide Level 33H, Calcium Level 8.5L, Phosphorus Level 2.2L, Aspartate Amino Transf (AST/SGOT) 23, Alanine Aminotransferase (ALT/SGPT) 19, Lactate Dehydrogenase 252H, Total Creatine Kinase 57, Alkaline Phosphatase 85, Total Bilirubin 0.4, Triglycerides Level 161H, Cholesterol Level 164, Total Protein 6.0L, Albumin 2.9L, Albumin/Globulin Ratio 0.94L, Anion Gap 8, White Blood Count 9.5, Red Blood Count 3.82L, Hemoglobin 12.5L, Hematocrit 37.1L, Mean Corpuscular Volume 97.1H, Mean Corpuscular Hemoglobin 32.7, Mean Corpuscular Hemoglobin Concent 33.6, Red Cell Distribution Width 14.4, Platelet Count 124L, Neutrophils (%) (Auto) 64.6, Lymphocytes (%) (Auto) 22.9L, Monocytes (%) (Auto) 7.7H, Eosinophils (%) (Auto) 1.9, Basophils (%) (Auto) 0.7, Neutrophils # (Auto) 6.2, Lymphocytes # (Auto) 2.4, Monocytes # (Auto) 0.7, Eosinophils # (Auto) 0.2, Basophils # (Auto) 0.1, Glomerular Filtration Rate 54.2, Large Unclassified Cells # 0.2, Large Unclassified Cells % 2.2, Magnesium Level 1.7L CBC/BMP Laboratory Tests 06/07/16 04:46 Calcium Level 8.5 L, Phosphorus Level 2.2 L, Aspartate Amino Transf (AST/SGOT) 23, Alanine Aminotransferase (ALT/SGPT) 19, Lactate Dehydrogenase 252 H, Total Creatine Kinase 57, Alkaline Phosphatase 85, Total Bilirubin 0.4, Triglycerides Level 161 H, Cholesterol Level 164, Total Protein 6.0 L, Albumin 2.9 L, Red Blood Count 3.82 L, Mean Corpuscular Volume 97.1 H, Mean Corpuscular Hemoglobin 32.7, Mean Corpuscular Hemoglobin Concent 33.6, Red Cell Distribution Width 14.4 , Neutrophils (%) (Auto) 64.6, Lymphocytes (%) (Auto) 22.9 L, Monocytes (%) ( Auto) 7.7 H, Eosinophils (%) (Auto) 1.9, Basophils (%) (Auto) 0.7, Neutrophils # (Auto) 6.2, Lymphocytes # (Auto) 2.4, Monocytes # (Auto) 0.7, Eosinophils # ( Auto) 0.2, Basophils # (Auto) 0.1 Microbiology Microbiology 05/31/16 Blood Culture - Final, Complete NO GROWTH AFTER 5 DAYS 05/31/16 Blood Culture - Final, Complete NO GROWTH AFTER 5 DAYS 06/04/16 MRSA Screen - Final, Complete 05/31/16 Urine Culture - Final, Complete CRISTOPHER BEE DO Jun 07, 2016 13:36
[2016-06-07] MEDS: LISINOPRIL 10 MG TAB PO SCH (13:54)
[2016-06-07 16:00] VITALS: BP 153/82
[2016-06-07 20:00] VITALS: BP 167/88
[2016-06-08] VITALS: BP 163/74
[2016-06-08 04:00] VITALS: BP 119/59
[2016-06-08] MEDS: HEPARIN SOD (PORCINE) 5000 UNITS/ML VIAL SQ SCH ×3 (05:00→21:00)
[2016-06-08 05:26] LABS: BASO % 0.5 % (0.0-1.0); EOS # 0.3 K/mm3 (0.0-0.50); EOS % 2.7 % (0.0-3.0); LARGE UNSTAINED CELL # 0.2 K/mm3 (0.0-0.4); LARGE UNSTAINED CELL % 1.9 % (0.0-4.0); LYMPH # 2.5 K/mm3 (1.5-4.5); LYMPH % 26.2 % (24.0-44.0); MEAN CORPUSCULAR HGB CONC 33.8 g/dl (32.0-36.5); MEAN CORPUSCULAR VOLUME 94.6 fl (80.0-96.0); MONO # 0.6 K/mm3 (0.0-0.8); MONO % 5.9 % (0.0-5.0); NEUTROPHILS % 62.9 % (36.0-66.0); PLATELET COUNT, AUTOMATED 144 k/mm3 (150-450); RED CELL DISTRIBUTION WIDTH 13.3 % (11.5-14.5); WHITE BLOOD COUNT 9.6 K/mm3 (4.0-10.0)
[2016-06-08 05:44] LABS: ALBUMIN 2.7 GM/DL (3.2-5.2); ALBUMIN/GLOBULIN RATIO 0.87 (1.00-1.93); ALKALINE PHOSPHATASE 86 U/L (45-117); ALT/SGPT 17 U/L (12-78); ANION GAP 9 MEQ/L (8-16); AST/SGOT 16 U/L (15-37); BILIRUBIN,TOTAL 0.4 MG/DL (0.2-1.0); BLOOD UREA NITROGEN 22 MG/DL (7-18); CALCIUM LEVEL 8.9 MG/DL (8.8-10.2); CARBON DIOXIDE LEVEL 30 MEQ/L (21-32); CHLORIDE LEVEL 105 MEQ/L (98-107); CHOLESTEROL LEVEL 175 MG/DL (< 200); CREATININE FOR GFR 1.24 MG/DL (0.70-1.30); GLOMERULAR FILTRATION RATE > 60.0 (>42); GLUCOSE, FASTING 111 MG/DL (83-110); MAGNESIUM LEVEL 1.7 MG/DL (1.8-2.4); PHOSPHORUS LEVEL 2.9 MG/DL (2.5-4.9); POTASSIUM SERUM 3.4 MEQ/L (3.5-5.1); SODIUM LEVEL 144 MEQ/L (136-145); TOTAL PROTEIN 5.8 GM/DL (6.4-8.2); TRIGLYCERIDES LEVEL 195 MG/DL (<150)
[2016-06-08] MEDS: SLF 3 ML SYR IV SCH ×3 (06:00→21:34)
[2016-06-08] MEDS: IPRATROPIUM 0.5MG/ALBUTEROL 2.5MG INH SOL UD 3ML (DUONEB)(J7620) NEB SCH ×4 (08:00→20:00)
[2016-06-08] MEDS: FORMOTEROL FUMARATE 20 MCG/2 ML INHALATION SOLUTION (PERFOROMIST) INH SCH ×2 (08:10→20:32)
[2016-06-08] MEDS: BUDESONIDE 0.5 MG/2 ML INHALATION SUSPENSION INH SCH ×2 (08:10→20:32)
[2016-06-08] MEDS: TIOTROPIUM INHALER/CAPSULE (SPIRIVA) INH SCH (08:10)
[2016-06-08 08:32] VITALS: BP 163/74
[2016-06-08] MEDS: LISINOPRIL 10 MG TAB PO SCH (08:43)
[2016-06-08] MEDS: THEOPHYLLINE 300 MG PO SCH ×2 (08:43→21:08)
[2016-06-08] MEDS: POTASSIUM CHLORIDE 10 MEQ SR TABLET PO SCH (08:43)
[2016-06-08] MEDS: amLODIPine 5 MG TAB PO SCH ×2 (08:44→21:09)
[2016-06-08] MEDS: ASPIRIN 81 MG CHEW TABLET PO SCH (08:44)
[2016-06-08] MEDS: CARVedilol 12.5 MG TAB PO SCH ×2 (08:44→21:08)
[2016-06-08] MEDS: PANTOPRAZOLE 40MG TAB (PROTONIX) PO SCH (08:44)
[2016-06-08 11:43] VITALS: BP 104/59
[2016-06-08] MEDS: VENLAFAXINE **XR** 75MG CAPSULE PO SCH ×2 (12:43→21:08)
--- NOTE | 2016-06-08 14:01 | IPNPDOC ---
Assessment/Plan Date Seen The patient was seen on 06/08/16. Problems Problems: (1) Acute on chronic respiratory failure with hypoxia and hypercapnia Status: Resolved Problem Text: Unknown why patient went into acute respiratory failure maybe secondary to cardiac event will likely need oupt cardiac workup NO pneumothorax or flash pulmonary edema seen in CXR. pt extubated, currently on 2L of oxygen (2) Acute metabolic encephalopathy Status: Resolved (3) Acute kidney injury superimposed on CKD Status: Resolved Problem Text: possibly due to infection , high dose levofloxacin on the back ground of ACEI and diuretic. 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 (7) Hypertension Status: Chronic (8) Hyperlipidemia Status: Chronic (9) Abdominal aortic aneurysm Status: Chronic Problem Text: has endovascular stent aorto tina placed in 2013. (10) Renal artery stenosis Status: Chronic (11) BPH (benign prostatic hyperplasia) Status: Chronic Problem Text: continue home medications. (12) History of femoropopliteal bypass Status: Chronic (13) H/O endovascular stent graft for abdominal aortic aneurysm Status: Chronic (14) Hypernatremia Status: Resolved Problem Text: Plan / VTE VTE Prophylaxis Ordered?: Yes Subjective Review of Systems CC/HPI The patient is a 76-year-old male admitted with a reason for visit of Acute Kidney Failure. Events since last encounter pt seen and examined, doing well, Constitutional: Denies: Chills, Fever, Malaise, Night Sweats, Weakness Cardiovascular: Denies: Chest Pain, Lt Headedness, Orthopnea, Palpitations, Paroxysmal Noc. Dyspnea Gastrointestinal: Denies: Abdominal Pain, Diarrhea, Nausea, Vomiting Objective Physical Examination General Exam: Positive: Other (obtunded), Severe Distress Eye Exam: Positive: Conjunctiva & lids normal, EOMI, PERRLA, Negative: Sclera icteric ENT Exam: Positive: Atraumatic, Mucous membr. moist/pink, Pharynx Normal Neck Exam: Positive: Supple, Negative: JVD, thyromegaly Chest Exam: Positive: Diminished, Other (silent chest bilaterally) Heart Exam: Positive: Normal S1, Normal S2, Rate Normal, Regular Rhythm, Negative: Murmurs, Rubs Telemetry: Positive: No significant arrhythmia Abdomen Exam: Positive: Normal bowel sounds, Soft, Negative: Hepatospenomegaly, Tenderness Extremity Exam: Positive: Edema, Other (left foor erythematous with ulcer), Tenderness Vital Signs/I&O Vital Signs Date Time Temp Pulse Resp B/P Pulse Ox O2 Delivery O2 Flow Rate FiO2 06/08/16 12:00 Room Air 06/08/16 11:43 96.4 86 20 104/59 95 06/08/16 04:00 1.0 06/05/16 12:01 40 I&O- Last 24 Hours up to 6 AM 06/08/16 05:59 Intake Total 780 ml Output Total 1550 ml Balance -770 ml Laboratory Data Labs 24H Laboratory Tests 2 06/08/16 05:03: Blood Urea Nitrogen 22H, Creatinine 1.24, Sodium Level 144, Potassium Level 3.4L , Chloride Level 105, Carbon Dioxide Level 30, Calcium Level 8.9, Phosphorus Level 2.9#, Aspartate Amino Transf (AST/SGOT) 16, Alanine Aminotransferase (ALT/ SGPT) 17, Lactate Dehydrogenase 249H, Total Creatine Kinase 45, Alkaline Phosphatase 86, Total Bilirubin 0.4, Triglycerides Level 195H, Cholesterol Level 175, Total Protein 5.8L, Albumin 2.7L, Albumin/Globulin Ratio 0.87L, Anion Gap 9, White Blood Count 9.6, Red Blood Count 3.86L, Hemoglobin 12.3L, Hematocrit 36.5L, Mean Corpuscular Volume 94.6, Mean Corpuscular Hemoglobin 32.0 , Mean Corpuscular Hemoglobin Concent 33.8, Red Cell Distribution Width 13.3, Platelet Count 144L, Neutrophils (%) (Auto) 62.9, Lymphocytes (%) (Auto) 26.2, Monocytes (%) (Auto) 5.9H, Eosinophils (%) (Auto) 2.7, Basophils (%) (Auto) 0.5 , Neutrophils # (Auto) 6.0, Lymphocytes # (Auto) 2.5, Monocytes # (Auto) 0.6, Eosinophils # (Auto) 0.3, Basophils # (Auto) 0.0, Glomerular Filtration Rate > 60.0, Large Unclassified Cells # 0.2, Large Unclassified Cells % 1.9, Magnesium Level 1.7L CBC/BMP Laboratory Tests 06/08/16 05:03 Calcium Level 8.9, Phosphorus Level 2.9 #, Aspartate Amino Transf (AST/SGOT) 16 , Alanine Aminotransferase (ALT/SGPT) 17, Lactate Dehydrogenase 249 H, Total Creatine Kinase 45, Alkaline Phosphatase 86, Total Bilirubin 0.4, Triglycerides Level 195 H, Cholesterol Level 175, Total Protein 5.8 L, Albumin 2.7 L, Red Blood Count 3.86 L, Mean Corpuscular Volume 94.6, Mean Corpuscular Hemoglobin 32.0, Mean Corpuscular Hemoglobin Concent 33.8, Red Cell Distribution Width 13.3 , Neutrophils (%) (Auto) 62.9, Lymphocytes (%) (Auto) 26.2, Monocytes (%) (Auto ) 5.9 H, Eosinophils (%) (Auto) 2.7, Basophils (%) (Auto) 0.5, Neutrophils # ( Auto) 6.0, Lymphocytes # (Auto) 2.5, Monocytes # (Auto) 0.6, Eosinophils # (Auto ) 0.3, Basophils # (Auto) 0.0 Microbiology Microbiology 05/31/16 Blood Culture - Final, Complete NO GROWTH AFTER 5 DAYS 05/31/16 Blood Culture - Final, Complete NO GROWTH AFTER 5 DAYS 06/04/16 MRSA Screen - Final, Complete 05/31/16 Urine Culture - Final, Complete CRISTOPHER BEE DO Jun 08, 2016 14:01
[2016-06-08 16:18] VITALS: BP 141/74
[2016-06-08 20:00] VITALS: BP 146/67
[2016-06-08] MEDS: MIRTAZAPINE 15 MG TAB PO SCH (21:08)
[2016-06-09] VITALS: BP 111/86
[2016-06-09 04:00] VITALS: BP 129/60
[2016-06-09 04:50] LABS: BASO % 0.4 % (0.0-1.0); EOS # 0.2 K/mm3 (0.0-0.50); EOS % 2.6 % (0.0-3.0); LARGE UNSTAINED CELL # 0.2 K/mm3 (0.0-0.4); LARGE UNSTAINED CELL % 2.7 % (0.0-4.0); LYMPH # 2.4 K/mm3 (1.5-4.5); LYMPH % 29.6 % (24.0-44.0); MEAN CORPUSCULAR HEMOGLOBIN 32.1 pg (27.0-33.0); MEAN CORPUSCULAR VOLUME 94.4 fl (80.0-96.0); MONO # 0.5 K/mm3 (0.0-0.8); MONO % 5.5 % (0.0-5.0); NEUTROPHILS # 4.9 K/mm3 (1.8-7.7); NEUTROPHILS % 59.2 % (36.0-66.0); PLATELET COUNT, AUTOMATED 140 k/mm3 (150-450); RED CELL DISTRIBUTION WIDTH 13.4 % (11.5-14.5); WHITE BLOOD COUNT 8.2 K/mm3 (4.0-10.0)
[2016-06-09] MEDS: HEPARIN SOD (PORCINE) 5000 UNITS/ML VIAL SQ SCH ×3 (05:00→20:59)
[2016-06-09 05:06] LABS: ALBUMIN 2.8 GM/DL (3.2-5.2); ALBUMIN/GLOBULIN RATIO 1.04 (1.00-1.93); BILIRUBIN,TOTAL 0.3 MG/DL (0.2-1.0); CALCIUM LEVEL 8.5 MG/DL (8.8-10.2); CREATININE FOR GFR 1.55 MG/DL (0.70-1.30); GLOMERULAR FILTRATION RATE 46.6 (>42); MAGNESIUM LEVEL 1.7 MG/DL (1.8-2.4); PHOSPHORUS LEVEL 3.3 MG/DL (2.5-4.9); POTASSIUM SERUM 3.5 MEQ/L (3.5-5.1); TOTAL PROTEIN 5.5 GM/DL (6.4-8.2)
[2016-06-09] MEDS: SLF 3 ML SYR IV SCH ×3 (05:06→21:05)
[2016-06-09] MEDS: FORMOTEROL FUMARATE 20 MCG/2 ML INHALATION SOLUTION (PERFOROMIST) INH SCH ×2 (07:58→20:05)
[2016-06-09] MEDS: IPRATROPIUM 0.5MG/ALBUTEROL 2.5MG INH SOL UD 3ML (DUONEB)(J7620) NEB SCH ×4 (07:58→20:00)
[2016-06-09] MEDS: TIOTROPIUM INHALER/CAPSULE (SPIRIVA) INH SCH (07:58)
[2016-06-09] MEDS: BUDESONIDE 0.5 MG/2 ML INHALATION SUSPENSION INH SCH ×2 (07:58→20:05)
[2016-06-09 08:00] VITALS: BP 111/63
[2016-06-09] MEDS: POTASSIUM CHLORIDE 10 MEQ SR TABLET PO SCH (08:40)
[2016-06-09] MEDS: VENLAFAXINE **XR** 75MG CAPSULE PO SCH ×2 (08:41→21:05)
[2016-06-09] MEDS: LISINOPRIL 10 MG TAB PO SCH (08:41)
[2016-06-09] MEDS: CARVedilol 12.5 MG TAB PO SCH ×2 (08:41→21:05)
[2016-06-09] MEDS: PANTOPRAZOLE 40MG TAB (PROTONIX) PO SCH (08:41)
[2016-06-09] MEDS: THEOPHYLLINE 300 MG PO SCH ×2 (08:42→21:04)
[2016-06-09] MEDS: amLODIPine 5 MG TAB PO SCH ×2 (08:42→21:05)
[2016-06-09] MEDS: ASPIRIN 81 MG CHEW TABLET PO SCH (08:42)
[2016-06-09 16:00] VITALS: BP 131/58
[2016-06-09 17:42] VITALS: BP 140/70
--- NOTE | 2016-06-09 19:26 | IPNPDOC ---
Assessment/Plan Date Seen The patient was seen on 06/09/16. Problems Problems: (1) Acute on chronic respiratory failure with hypoxia and hypercapnia Status: Resolved Problem Text: Unknown why patient went into acute respiratory failure maybe secondary to cardiac event will likely need oupt cardiac workup NO pneumothorax or flash pulmonary edema seen in CXR. pt extubated, currently on 2L of oxygen d/c in am (2) Acute metabolic encephalopathy Status: Resolved (3) Acute kidney injury superimposed on CKD Status: Resolved Problem Text: possibly due to infection , high dose levofloxacin on the back ground of ACEI and diuretic. 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 (7) Hypertension Status: Chronic (8) Hyperlipidemia Status: Chronic (9) Abdominal aortic aneurysm Status: Chronic Problem Text: has endovascular stent aorto tina placed in 2013. (10) Renal artery stenosis Status: Chronic (11) BPH (benign prostatic hyperplasia) Status: Chronic Problem Text: continue home medications. (12) History of femoropopliteal bypass Status: Chronic (13) H/O endovascular stent graft for abdominal aortic aneurysm Status: Chronic (14) Hypernatremia Status: Resolved Problem Text: Plan / VTE VTE Prophylaxis Ordered?: Yes Subjective Review of Systems CC/HPI The patient is a 76-year-old male admitted with a reason for visit of Acute Kidney Failure. Events since last encounter pt seen and examined, doing well, Pulmonary: Denies: Cough, Dyspnea Cardiovascular: Denies: Chest Pain, Lt Headedness, Orthopnea, Palpitations, Paroxysmal Noc. Dyspnea Objective Physical Examination General Exam: Positive: Other (obtunded), Severe Distress Eye Exam: Positive: Conjunctiva & lids normal, EOMI, PERRLA, Negative: Sclera icteric ENT Exam: Positive: Atraumatic, Mucous membr. moist/pink, Pharynx Normal Neck Exam: Positive: Supple, Negative: JVD, thyromegaly Chest Exam: Positive: Diminished, Other (silent chest bilaterally) Heart Exam: Positive: Normal S1, Normal S2, Rate Normal, Regular Rhythm, Negative: Murmurs, Rubs Telemetry: Positive: No significant arrhythmia Abdomen Exam: Positive: Normal bowel sounds, Soft, Negative: Hepatospenomegaly, Tenderness Extremity Exam: Positive: Edema, Other (left foor erythematous with ulcer), Tenderness Vital Signs/I&O Vital Signs Date Time Temp Pulse Resp B/P Pulse Ox O2 Delivery O2 Flow Rate FiO2 06/09/16 18:18 Room Air 06/09/16 17:42 97.3 64 18 140/70 93 06/09/16 08:00 2.0 06/05/16 12:01 40 I&O- Last 24 Hours up to 6 AM 06/09/16 06:00 Intake Total 960 ml Output Total 450 ml Balance 510 ml Laboratory Data Labs 24H Laboratory Tests 2 06/09/16 04:29: Blood Urea Nitrogen 27H, Creatinine 1.55H, Sodium Level 145, Potassium Level 3.5 , Chloride Level 108H, Carbon Dioxide Level 29, Calcium Level 8.5L, Phosphorus Level 3.3, Aspartate Amino Transf (AST/SGOT) 16, Alanine Aminotransferase (ALT/ SGPT) 16, Lactate Dehydrogenase 248H, Total Creatine Kinase 47, Alkaline Phosphatase 84, Total Bilirubin 0.3, Triglycerides Level 164H, Cholesterol Level 179, Total Protein 5.5L, Albumin 2.8L, Albumin/Globulin Ratio 1.04, Anion Gap 8, White Blood Count 8.2, Red Blood Count 3.46L, Hemoglobin 11.1L, Hematocrit 32.7L, Mean Corpuscular Volume 94.4, Mean Corpuscular Hemoglobin 32.1 , Mean Corpuscular Hemoglobin Concent 34.0, Red Cell Distribution Width 13.4, Platelet Count 140L, Neutrophils (%) (Auto) 59.2, Lymphocytes (%) (Auto) 29.6, Monocytes (%) (Auto) 5.5H, Eosinophils (%) (Auto) 2.6, Basophils (%) (Auto) 0.4 , Neutrophils # (Auto) 4.9, Lymphocytes # (Auto) 2.4, Monocytes # (Auto) 0.5, Eosinophils # (Auto) 0.2, Basophils # (Auto) 0.0, Glomerular Filtration Rate 46.6, Large Unclassified Cells # 0.2, Large Unclassified Cells % 2.7, Magnesium Level 1.7L CBC/BMP Laboratory Tests 06/09/16 04:29 Calcium Level 8.5 L, Phosphorus Level 3.3, Aspartate Amino Transf (AST/SGOT) 16 , Alanine Aminotransferase (ALT/SGPT) 16, Lactate Dehydrogenase 248 H, Total Creatine Kinase 47, Alkaline Phosphatase 84, Total Bilirubin 0.3, Triglycerides Level 164 H, Cholesterol Level 179, Total Protein 5.5 L, Albumin 2.8 L, Red Blood Count 3.46 L, Mean Corpuscular Volume 94.4, Mean Corpuscular Hemoglobin 32.1, Mean Corpuscular Hemoglobin Concent 34.0, Red Cell Distribution Width 13.4 , Neutrophils (%) (Auto) 59.2, Lymphocytes (%) (Auto) 29.6, Monocytes (%) (Auto ) 5.5 H, Eosinophils (%) (Auto) 2.6, Basophils (%) (Auto) 0.4, Neutrophils # ( Auto) 4.9, Lymphocytes # (Auto) 2.4, Monocytes # (Auto) 0.5, Eosinophils # (Auto ) 0.2, Basophils # (Auto) 0.0 Microbiology Microbiology 05/31/16 Blood Culture - Final, Complete NO GROWTH AFTER 5 DAYS 05/31/16 Blood Culture - Final, Complete NO GROWTH AFTER 5 DAYS 06/09/16 MRSA Screen, Received Pending 06/04/16 MRSA Screen - Final, Complete 05/31/16 Urine Culture - Final, Complete CRISTOPHER BEE DO Jun 09, 2016 19:26
[2016-06-09] MEDS: MIRTAZAPINE 15 MG TAB PO SCH (21:05)
[2016-06-09 22:00] VITALS: BP 134/62
[2016-06-10] MEDS: HEPARIN SOD (PORCINE) 5000 UNITS/ML VIAL SQ SCH (05:00)
[2016-06-10 06:00] VITALS: BP 146/87
[2016-06-10] MEDS: SLF 3 ML SYR IV SCH (06:00)
[2016-06-10 06:34] LABS: BASO % 0.4 % (0.0-1.0); EOS # 0.3 K/mm3 (0.0-0.50); EOS % 3.4 % (0.0-3.0); LARGE UNSTAINED CELL # 0.2 K/mm3 (0.0-0.4); LYMPH % 26.1 % (24.0-44.0); MEAN CORPUSCULAR HEMOGLOBIN 31.4 pg (27.0-33.0); MEAN CORPUSCULAR HGB CONC 33.1 g/dl (32.0-36.5); MEAN CORPUSCULAR VOLUME 94.9 fl (80.0-96.0); MONO # 0.5 K/mm3 (0.0-0.8); NEUTROPHILS # 4.8 K/mm3 (1.8-7.7); NEUTROPHILS % 61.1 % (36.0-66.0); PLATELET COUNT, AUTOMATED 140 k/mm3 (150-450); RED CELL DISTRIBUTION WIDTH 13.7 % (11.5-14.5); WHITE BLOOD COUNT 7.8 K/mm3 (4.0-10.0)
[2016-06-10 06:53] LABS: ALBUMIN 2.9 GM/DL (3.2-5.2); BILIRUBIN,TOTAL 0.2 MG/DL (0.2-1.0); CALCIUM LEVEL 8.8 MG/DL (8.8-10.2); CREATININE FOR GFR 1.54 MG/DL (0.70-1.30); MAGNESIUM LEVEL 1.7 MG/DL (1.8-2.4); PHOSPHORUS LEVEL 3.1 MG/DL (2.5-4.9); TOTAL PROTEIN 5.8 GM/DL (6.4-8.2)
[2016-06-10] MEDS: IPRATROPIUM 0.5MG/ALBUTEROL 2.5MG INH SOL UD 3ML (DUONEB)(J7620) NEB SCH ×2 (07:27→10:53)
[2016-06-10] MEDS: FORMOTEROL FUMARATE 20 MCG/2 ML INHALATION SOLUTION (PERFOROMIST) INH SCH (07:27)
[2016-06-10] MEDS: TIOTROPIUM INHALER/CAPSULE (SPIRIVA) INH SCH (07:27)
[2016-06-10] MEDS: BUDESONIDE 0.5 MG/2 ML INHALATION SUSPENSION INH SCH (07:27)
[2016-06-10] MEDS: THEOPHYLLINE 300 MG PO SCH (09:50)
[2016-06-10] MEDS: amLODIPine 5 MG TAB PO SCH (09:50)
[2016-06-10] MEDS: ASPIRIN 81 MG CHEW TABLET PO SCH (09:51)
[2016-06-10] MEDS: POTASSIUM CHLORIDE 10 MEQ SR TABLET PO SCH (09:51)
[2016-06-10] MEDS: VENLAFAXINE **XR** 75MG CAPSULE PO SCH (09:51)
[2016-06-10] MEDS: LISINOPRIL 10 MG TAB PO SCH (09:51)
[2016-06-10] MEDS: PANTOPRAZOLE 40MG TAB (PROTONIX) PO SCH (09:51)
[2016-06-10 09:52] VITALS: BP 142/65
[2016-06-10] MEDS: CARVedilol 12.5 MG TAB PO SCH (09:52)
[2016-06-10] MEDS ORDERED: AMLO5TAB2 PO (09:58)
== END 2016-06-10 11:31 | disposition home or self-care (01) | DRG 682 ==
LOC: M ED 10:33 → M ED INP 13:15 → M PCU 15:51 → M MSPAV 06-02 15:20 → M ICU 06-04 08:54 → M MSPAV 06-09 17:26
PROVIDERS: ADMIT Internal Medicine; ATTEND Internal Medicine
PROC: 5A1945Z Respiratory Ventilation, 24-96 Consecutive Hours (ICD-10-PCS; principal; 2016-06-04)
PROC: 0BH17EZ Insertion of Endotracheal Airway into Trachea, Via Natural or Artificial Opening (ICD-10-PCS; 2016-06-04)
DX: N17.9 Acute kidney failure, unspecified (principal); J96.22 Acute and chronic respiratory failure with hypercapnia; J96.21 Acute and chronic respiratory failure with hypoxia; G93.41 Metabolic encephalopathy; E87.2 Acidosis; N39.0 Urinary tract infection, site not specified; E87.0 Hyperosmolality and hypernatremia; I50.32 Chronic diastolic (congestive) heart failure; I13.0 Hypertensive heart and chronic kidney disease with heart failure and stage 1 through stage 4 chronic kidney disease, or unspecified chronic kidney disease; J44.1 Chronic obstructive pulmonary disease with (acute) exacerbation; I73.9 Peripheral vascular disease, unspecified; N40.0 Benign prostatic hyperplasia without lower urinary tract symptoms; E86.0 Dehydration; I25.10 Atherosclerotic heart disease of native coronary artery without angina pectoris; K44.9 Diaphragmatic hernia without obstruction or gangrene; M81.0 Age-related osteoporosis without current pathological fracture; E78.5 Hyperlipidemia, unspecified; N18.9 Chronic kidney disease, unspecified; L97.529 Non-pressure chronic ulcer of other part of left foot with unspecified severity; R19.7 Diarrhea, unspecified; F32.9 Major depressive disorder, single episode, unspecified; Z99.81 Dependence on supplemental oxygen; I70.1 Atherosclerosis of renal artery; I71.4 Abdominal aortic aneurysm, without rupture; Z79.82 Long term (current) use of aspirin; Z79.51 Long term (current) use of inhaled steroids; Z98.62 Peripheral vascular angioplasty status

== ENCOUNTER 2016-06-29 11:06 | Emergency (ER) | payer MEDICARE ==
[~2016-06-29 11:06] MED LIST changes: +FLORCAP10 PO
[2016-06-29] MEDS ORDERED: IPRATROPIUM 0.5MG/ALBUTEROL 2.5MG INH SOL UD 3ML (DUONEB)(J7620) As Ordered ONE (11:27)
[2016-06-29 11:42] LABS: ABG BASE EXCESS 1.8 (-2.0-2.0); ABG DEVICE NASAL CANN; ABG HCO3 26.8 MEQ/L (22.0-26.0); ABG PARTIAL PRESSURE CO2 43.6 mmHg (35.0-45.0); ABG PARTIAL PRESSURE O2 113.6 mmHg (75.0-100.0); ABG STANDARD HCO3 26.1 MEQ/L (22.0-26.0); ABG TOTAL CO2 28.1 MEQ/L (23.0-31.0); ABG pH (ARTERIAL) 7.406 UNITS (7.350-7.450)
--- NOTE | 2016-06-29 11:46 | REP ---
Portable chest, 06/29/2016, 11:34, single AP view, patient sitting: Comparison is 2016. Lung lyons are clear. Cardiac size is normal. The lamin, mediastinum, and bony thorax are unremarkable. There is no interval change. Impression: Negative portable chest. Signed by Gallito Duvall MD 06/29/2016 11:39 A
[2016-06-29 13:02] LABS: BASO # 0.2 K/mm3 (0.0-0.2); BASO % 1.4 % (0.0-1.0); EOS # 0.2 K/mm3 (0.0-0.50); LARGE UNSTAINED CELL # 0.1 K/mm3 (0.0-0.4); LARGE UNSTAINED CELL % 1.2 % (0.0-4.0); LYMPH # 2.1 K/mm3 (1.5-4.5); LYMPH % 16.6 % (24.0-44.0); MEAN CORPUSCULAR HEMOGLOBIN 31.5 pg (27.0-33.0); MEAN CORPUSCULAR HGB CONC 33.5 g/dl (32.0-36.5); MEAN CORPUSCULAR VOLUME 94.2 fl (80.0-96.0); MONO # 0.6 K/mm3 (0.0-0.8); NEUTROPHILS # 8.7 K/mm3 (1.8-7.7); NEUTROPHILS % 73.8 % (36.0-66.0); PLATELET COUNT, AUTOMATED 176 k/mm3 (150-450); RED CELL DISTRIBUTION WIDTH 14.4 % (11.5-14.5); WHITE BLOOD COUNT 11.8 K/mm3 (4.0-10.0)
[2016-06-29 13:08] LABS: CALCIUM LEVEL 9.6 MG/DL (8.8-10.2); CREATININE FOR GFR 1.47 MG/DL (0.70-1.30); GLOMERULAR FILTRATION RATE 49.6 (>42); POTASSIUM SERUM 4.1 MEQ/L (3.5-5.1)
--- NOTE | 2016-06-29 13:56 | EDDOCDS ---
Physician Documentation [facility] Name: Feliciano Flores Age: 76 yrs Sex: Male : 1940 Arrival Date: 06/29/2016 Time: 11:06 Bed 8 Private MD: Disposition: 06/29/16 13:21 Discharged to Home/Self Care. Impression: Chronic obstructive pulmonary disease with (acute) exacerbation. - Condition is Stable. - Discharge Instructions: Chronic Obstructive Pulmonary Disease. - Prescriptions for Prednisone 20 mg Oral Tablet - take 3 tablet by ORAL route once daily for 5 days; 15 tablet. - Medication Reconciliation, Local Pharmacy Hours form. - Follow up: Dilcia Glover; When: 1 - 2 days. Follow up: Mary Zaragoza; When: keep previously scheduled appointment. - Problem is an acute exacerbation. - Symptoms have improved. Historical: - Allergies: no known allergies; - Home Meds: 1. albuterol sulfate 2.5 mg /3 mL (0.083 %) Inhl nebu daily PRN for Chronic Obstructive Pulmonary Disease (Last dose: 06/29/2016 07:00) 2. aspirin 81 mg Oral chew 1 tab once daily (Last dose: 06/29/2016 08:00) 3. atorvastatin 40 mg oral tab 1 tab once daily for Hypercholesterolemia (Last dose: 06/29/2016 08:00) 4. Brovana 15 mcg/2 mL inhalation nebu 2 mL 2 times per day for Bronchospasm Prevention with COPD (Last dose: 06/29/2016 08:00) 5. carvedilol 12.5 mg oral tab 1 tab every 12 hours for Hypertension (Last dose: 06/29/2016 08:00) 6. Florajen oral daily (Last dose: 06/29/2016 08:00) 7. lisinopril 30 mg Oral tab 1 tab once daily (Last dose: 06/29/2016 08:00) 8. mirtazapine 30 mg Oral tab 1 tab once daily for Depression (Last dose: 06/29/2016 08:00) 9. Oxygen 3L NC daily 2 LPM continuous (Last dose: 06/29/2016 08:00) 10. ProAir HFA 90 mcg/actuation inhalation HFAA 2 puffs every 6 hours (Last dose: 06/29/2016 08:00) 11. Santyl 250 unit/gram Topical oint once daily (Last dose: 06/29/2016 08:00) 12. Spiriva with HandiHaler 18 mcg Inhl CpDv 1 cap once daily (Last dose: 06/29/2016 08:00) 13. theophylline 300 mg Oral tab 1 tab every 12 hours (Last dose: 06/29/2016 08:00) 14. venlafaxine 150 mg oral cp24 1 cap twice a day for Anxiety with Depression (Last dose: 06/29/2016 08:00) 15. Vitamin D Oral 2000 unit daily (Last dose: 06/29/2016 08:00) - PMHx: Aortic Aneurysm; arteriosclerotic heart disease; cellulitis; COPD; Diverticulitis; enlarged prostate; Hiatal Hernia; Hypercholesterolemia; Hypertension; Osteoarthritis; Pneumonia; PVD; traumatic subarachnoid hemorrhage; - PSHx: Hernia repair; Carpal Tunnel Repair- Left; Bone Grafting; Cholecystectomy; Cataract Surgery- Bilateral; endovascular AAA repair; L popliteal artery bypass; - Social history: Smoking status: Patient states former smoker of tobacco. No barriers to communication noted, Speaks appropriately for age. - Family history: Not pertinent. - : The pt / caregiver states he / she is not on anticoagulants. Home medication list is obtained from the patient, Unable to Verify Home Med List with the patient / caregiver. - Exposure Risk Screening:: None identified. Vital Signs: 06/29 11:19 BP 130 / 66; Pulse 77; Resp 18; Temp 99.3(TE); Pulse Ox 100% on 2 lpm NC; Weight 78.93 ct3 kg / 174.01 lbs (R); Height 5 ft. 7 in. (170.18 cm) (R); Pain 6/10; 13:33 BP 150 / 82 RA Sitting (auto/reg); Pulse 74; Resp 18; Temp 97.3(O); Pulse Ox 97% on jrd R/A; Pain 0/10; 11:19 Body Mass Index 27.25 (78.93 kg, 170.18 cm) ct3 MDM: 11:10 -Blood Culture (Adults Only), peripheral from different site, or from device/port/PICC sd1 etc. if present ordered. 11:10 Cake Decorator/Pulse Ox/q 15 min VS ordered. sd1 11:10 IV Saline Lock ordered. sd1 11:10 Oxygen at 4L/Min NC or Home dosage ordered. sd1 11:10 Rhythm Strip to chart ordered. sd1 11:11 -Arterial Blood Gas Ordered. EDMS 11:11 B-Type Natiuretic Peptide Ordered. EDMS 11:11 Basic Metabolic Profile Ordered. EDMS 11:11 CBC with Diff Ordered. EDMS 11:11 Cardiac Injury Profile Ordered. EDMS 11:11 Troponin Ordered. EDMS 11:11 -Blood Culture Ordered. EDMS 11:12 Chest, 1 View Ordered. EDMS 11:12 ECG WITH READING ER PHYS+CARDIAG ordered. EDMS 11:14 -Blood Culture (Adults Only), peripheral from different site, or from device/port/PICC deg etc. if present complete. 11:15 BLOOD CULTURES Ordered. EDMS 11:16 Albuterol-Ipratropium 1 neb Nebulizer every 20 minutes x3 ordered. sd1 12:02 -Arterial Blood Gas Reviewed. sd1 12:16 Financial registration complete. lg 12:44 Chest, 1 View Reviewed. sd1 12:48 [facility] – [place] Payment Agreement was scanned into [employer] and attached to record. lg 13:14 Basic Metabolic Profile Reviewed. sd1 13:14 CBC with Diff Reviewed. sd1 13:14 Cardiac Injury Profile Reviewed. sd1 13:14 Troponin Reviewed. sd1 13:15 Misc. Nursing Order ordered. sd1 Administered Medications: 11:30 Drug: Albuterol-Ipratropium 1 neb [ipratropium-albuterol 0.5 mg-3 mg(2.5 mg base)/3 mL kt1 nebulization soln (1 neb)] Route: Nebulizer; 11:40 Drug: Albuterol-Ipratropium 1 neb [ipratropium-albuterol 0.5 mg-3 mg(2.5 mg base)/3 mL kt1 nebulization soln (1 neb)] Route: Nebulizer; 11:43 Follow up: Response: Nebulizer completed kt1 12:00 Drug: Albuterol-Ipratropium 1 neb [ipratropium-albuterol 0.5 mg-3 mg(2.5 mg base)/3 mL kt1 nebulization soln (1 neb)] Route: Nebulizer; 12:00 Follow up: Response: Nebulizer completed kt1 Signatures: Dispatcher [employer] EDMS Magdaleno Postah, MD MD sd1 Sherry Yang, [employer] deg Sneha Khanna, Reg Reg lg Davide Solano, RN RN ml6 Delaney Byrnes kt1 The chart was reviewed and I authenticate all verbal orders and agree with the evaluation and treatment provided.Attachments: 12:48 [facility] Payment Agreement lg [email or web address]
--- NOTE | 2016-06-29 13:57 | EDDOCDS ---
Nurse's Notes [facility] Name: Feliciano Flores Age: 76 yrs Sex: Male : 1940 Arrival Date: 06/29/2016 Time: 11:06 Bed 8 Private MD: Diagnosis: Chronic obstructive pulmonary disease with (acute) exacerbation Presentation: 06/29 11:10 Presenting complaint: Patient states: states increasing SOB since lastnight. Adult ml6 Sepsis Screening: The patient does not have new or worsening altered mentation. Patient's respiratory rate is less than 22. Systolic blood pressure is greater than 100. Patient has a qSOFA score of 0- Negative Sepsis Screen. Suicide/Homicide risk assessment- the patient denies having any suicidal and/or homicidal ideations and does not present with any other emotional, behavioral or mental health complaints. Status: Patient is not a manager office services or dependent. Transition of care: patient was not received from another setting of care. 11:10 Acuity: ELLY Level 3 ml6 11:10 Method Of Arrival: Ambulance ml6 Triage Assessment: 11:10 General: Appears in no apparent distress, Behavior is anxious, cooperative. Pain: ml6 Denies pain. Cardiovascular: No deficits noted. Capillary refill < 3 seconds is brisk in bilateral fingers toes Heart tones S1 S2 present. Respiratory: Onset: The symptoms/episode began/occurred yesterday, Airway is patent Respiratory effort is even, labored, Respiratory pattern is regular, symmetrical, Breath sounds are diminished bilaterally. Reports shortness of breath at rest on exertion the patient has mild shortness of breath. GI: No deficits noted. Abdomen is flat, non- distended Bowel sounds present X 4 quads. Injury Description: No known injury. Historical: - Allergies: no known allergies; - Home Meds: 1. albuterol sulfate 2.5 mg /3 mL (0.083 %) Inhl nebu daily PRN for Chronic Obstructive Pulmonary Disease (Last dose: 06/29/2016 07:00) 2. aspirin 81 mg Oral chew 1 tab once daily (Last dose: 06/29/2016 08:00) 3. atorvastatin 40 mg oral tab 1 tab once daily for Hypercholesterolemia (Last dose: 06/29/2016 08:00) 4. Brovana 15 mcg/2 mL inhalation nebu 2 mL 2 times per day for Bronchospasm Prevention with COPD (Last dose: 06/29/2016 08:00) 5. carvedilol 12.5 mg oral tab 1 tab every 12 hours for Hypertension (Last dose: 06/29/2016 08:00) 6. Florajen oral daily (Last dose: 06/29/2016 08:00) 7. lisinopril 30 mg Oral tab 1 tab once daily (Last dose: 06/29/2016 08:00) 8. mirtazapine 30 mg Oral tab 1 tab once daily for Depression (Last dose: 06/29/2016 08:00) 9. Oxygen 3L NC daily 2 LPM continuous (Last dose: 06/29/2016 08:00) 10. ProAir HFA 90 mcg/actuation inhalation HFAA 2 puffs every 6 hours (Last dose: 06/29/2016 08:00) 11. Santyl 250 unit/gram Topical oint once daily (Last dose: 06/29/2016 08:00) 12. Spiriva with HandiHaler 18 mcg Inhl CpDv 1 cap once daily (Last dose: 06/29/2016 08:00) 13. theophylline 300 mg Oral tab 1 tab every 12 hours (Last dose: 06/29/2016 08:00) 14. venlafaxine 150 mg oral cp24 1 cap twice a day for Anxiety with Depression (Last dose: 06/29/2016 08:00) 15. Vitamin D Oral 2000 unit daily (Last dose: 06/29/2016 08:00) - PMHx: Aortic Aneurysm; arteriosclerotic heart disease; cellulitis; COPD; Diverticulitis; enlarged prostate; Hiatal Hernia; Hypercholesterolemia; Hypertension; Osteoarthritis; Pneumonia; PVD; traumatic subarachnoid hemorrhage; - PSHx: Hernia repair; Carpal Tunnel Repair- Left; Bone Grafting; Cholecystectomy; Cataract Surgery- Bilateral; endovascular AAA repair; L popliteal artery bypass; - Social history: Smoking status: Patient states former smoker of tobacco. No barriers to communication noted, Speaks appropriately for age. - Family history: Not pertinent. - : The pt / caregiver states he / she is not on anticoagulants. Home medication list is obtained from the patient, Unable to Verify Home Med List with the patient / caregiver. - Exposure Risk Screening:: None identified. Screenin:25 Screening information is obtained from the patient. Fall risk: No risks identified. ml6 Assistance ADL's: requires no assistance with activities of daily living. Abuse/DV Screen: The patient / caregiver reports he/she is: not in a situation that causes fear, pain or injury. Nutritional screening: No deficits noted. Advance Directives: Currently, there is no health care proxy. home support is adequate. Assessment: 11:10 Cardiovascular: Capillary refill < 3 seconds is brisk in bilateral fingers toes Heart ml6 tones S1 S2 present Edema is absent. Pulses are all present. Rhythm is regular Chest pain is denied. Respiratory: Airway is patent Respiratory effort is even, labored, Respiratory pattern is regular, symmetrical, Breath sounds are diminished bilaterally. 12:30 Reassessment: Patient appears in no apparent distress at this time. Patient denies pain ml6 at this time. Patient states feeling better. Patient states symptoms have improved. 13:30 Reassessment: Patient appears in no apparent distress at this time. Patient denies pain ml6 at this time. Patient states feeling better. Patient states symptoms have improved. 13:53 General: Appears in no apparent distress, comfortable, Behavior is appropriate for age, ml6 cooperative. Pain: Denies pain. Neurological: No deficits noted. Level of Consciousness is awake, alert, Oriented to person, place, time. Cardiovascular: No deficits noted. Capillary refill < 3 seconds is brisk in bilateral fingers toes. Respiratory: Airway is patent Respiratory effort is even, unlabored, Respiratory pattern is regular, symmetrical, Breath sounds are diminished bilaterally. Reports no respiratory complaints. Vital Signs: 11:19 BP 130 / 66; Pulse 77; Resp 18; Temp 99.3(TE); Pulse Ox 100% on 2 lpm NC; Weight 78.93 ct3 kg (R); Height 5 ft. 7 in. (170.18 cm) (R); Pain 6/10; 13:33 BP 150 / 82 RA Sitting (auto/reg); Pulse 74; Resp 18; Temp 97.3(O); Pulse Ox 97% on jrd R/A; Pain 0/10; 11:19 Body Mass Index 27.25 (78.93 kg, 170.18 cm) ct3 Vitals: 11:19 Log In Time N/A - ambulance arrival. ct3 ED Course: 11:07 Patient visited by Sherry Yang, Seismic Plotter. deg 11:07 Patient moved to Waiting deg 11:09 Patient moved to [facility] 11:10 Sylvia Post MD is Attending Physician. sd1 11:10 Maintain field IV. Dressing intact. Good blood return noted. Site clean & dry. Gauge & ml6 site: 20g Right FA. 11:12 Patient visited by Sylvia Post MD. sd1 11:19 EKG done. (by ED staff). Reviewed by Sylvia Post MD. ct3 11:21 Triage Initiated ml6 11:22 Accompanied by Family Member, Patient has correct armband on for positive ct3 identification. Placed in gown. Bed in low position. Call light in reach. Side rails up X2. shelter monitor on. Pulse ox on. NIBP on. 11:23 Patient visited by Soledad Ken PCA. ct3 11:43 -Arterial Blood Gas Sent. kt1 12:07 Chest, 1 View Returned. EDMS 12:11 Patient visited by Davide Solano, GASPER. ml6 12:34 Patient visited by Davide Solano RN. ml6 12:48 [facility] Payment Agreement was scanned into [employer] and attached to record. lg 13:20 Dilcia Glover is Referral Physician. sd1 13:20 Mary Zaragoza is Referral Physician. sd1 13:33 Patient visited by rFeddy Romero PCA. jrd 13:53 Discontinued IV bleeding controlled, pressure dressing applied, No redness/swelling at ml6 site. No procedures done that require assistance. 13:54 The patient / caregiver is instructed regarding the plan of care and ED course. ml6 Administered Medications: 11:30 Drug: Albuterol-Ipratropium 1 neb [ipratropium-albuterol 0.5 mg-3 mg(2.5 mg base)/3 mL kt1 nebulization soln (1 neb)] Route: Nebulizer; 11:40 Drug: Albuterol-Ipratropium 1 neb [ipratropium-albuterol 0.5 mg-3 mg(2.5 mg base)/3 mL kt1 nebulization soln (1 neb)] Route: Nebulizer; 11:43 Follow up: Response: Nebulizer completed kt1 12:00 Drug: Albuterol-Ipratropium 1 neb [ipratropium-albuterol 0.5 mg-3 mg(2.5 mg base)/3 mL kt1 nebulization soln (1 neb)] Route: Nebulizer; 12:00 Follow up: Response: Nebulizer completed kt1 RT: 11:30 ABG's drawn from right radial artery pressure held for 5 minutes no bleeding noted kt1 pressure bandage applied specimen sent pt. tolerated well. Initial Med Neb Given as ordered Patient was instructed and evaluated on procedure Patient tolerated procedure well without adverse effect. Respiratory: Breath sounds are diminished bilaterally. 11:44 Subsequent Med Neb Given as ordered. Respiratory: Breath sounds are diminished kt1 bilaterally. Breath sounds with wheezes in left upper lobe and left lower lobe at expiration. 12:00 Subsequent Med Neb Given as ordered Patient tolerated procedure well without adverse kt1 effect. Order Results: Lab Order: -Arterial Blood Gas; SPEC'M 06/29/16 11:26 Test: ABG pH (ARTERIAL); Value: 7.406; Range: 7.350-7.450; Units: UNITS; Status: F Test: ABG PARTIAL PRESSURE CO2; Value: 43.6; Range: 35.0-45.0; Units: mmHg; Status: F Test: ABG PARTIAL PRESSURE O2; Value: 113.6; Range: 75.0-100.0; Abnormal: Above high normal; Units: mmHg; Status: F Test: ABG TOTAL CO2; Value: 28.1; Range: 23.0-31.0; Units: MEQ/L; Status: F Test: ABG HCO3; Value: 26.8; Range: 22.0-26.0; Abnormal: Above high normal; Units: MEQ/L; Status: F Test: ABG BASE EXCESS; Value: 1.8; Range: -2.0-2.0; Status: F Test: ABG STANDARD HCO3; Value: 26.1; Range: 22.0-26.0; Abnormal: Above high normal; Units: MEQ/L; Status: F Test: ABG O2 SATURATION; Value: 98.2; Range: 95.0-99.0; Units: %; Status: F Test: ABG DEVICE; Value: NASAL RED; Status: F Lab Order: B-Type Natiuretic Peptide; SPEC'M 06/29/16 12:05 Test: BRAIN NATRIURETIC PEPTIDE; Value: 47.1; Range: <100; Units: PG/ML; Status: F Lab Order: Basic Metabolic Profile; SPEC'06/29/16 11:59 Test: GLUCOSE, FASTING; Value: 118; Range: 83-110; Abnormal: Above high normal; Units: MG/DL; Status: F Test: BLOOD UREA NITROGEN; Value: 26; Range: 7-18; Abnormal: Above high normal; Units: MG/DL; Status: F Test: CREATININE FOR GFR; Value: 1.47; Range: 0.70-1.30; Abnormal: Above high normal; Units: MG/DL; Status: F Test: GLOMERULAR FILTRATION RATE; Value: 49.6; Range: >42; Status: F Test: SODIUM LEVEL; Value: 142; Range: 136-145; Units: MEQ/L; Status: F Test: POTASSIUM SERUM; Value: 4.1; Range: 3.5-5.1; Units: MEQ/L; Status: F Test: CHLORIDE LEVEL; Value: 105; Range: 98-107; Units: MEQ/L; Status: F Test: CARBON DIOXIDE LEVEL; Value: 31; Range: 21-32; Units: MEQ/L; Status: F Test: ANION GAP; Value: 6; Range: 8-16; Abnormal: Below low normal; Units: MEQ/L; Status: F Test: CALCIUM LEVEL; Value: 9.6; Range: 8.8-10.2; Units: MG/DL; Status: F Test Note: ; Units are mL/min/1.73 m2 Chronic Kidney Disease Staging per NKF: Stage I & II GFR >=60 Normal to Mildly Decreased Stage III GFR 30-59 Moderately Decreased Stage IV GFR 15-29 Severely Decreased Stage V GFR <15 Very Little GFR Left ESRD GFR <15 on ATTACHER Lab Order: CBC with Diff; SPEC'06/29/16 12:04 Test: WHITE BLOOD COUNT; Value: 11.8; Range: 4.0-10.0; Abnormal: Above high normal; Units: K/mm3; Status: F Test: RED BLOOD COUNT; Value: 3.69; Range: 4.30-6.10; Abnormal: Below low normal; Units: M/mm3; Status: F Test: HEMOGLOBIN; Value: 11.6; Range: 14.0-18.0; Abnormal: Below low normal; Units: g/dl; Status: F Test: HEMATOCRIT; Value: 34.8; Range: 42.0-52.0; Abnormal: Below low normal; Units: %; Status: F Test: MEAN CORPUSCULAR VOLUME; Value: 94.2; Range: 80.0-96.0; Units: fl; Status: F Test: MEAN CORPUSCULAR HEMOGLOBIN; Value: 31.5; Range: 27.0-33.0; Units: pg; Status: F Test: MEAN CORPUSCULAR HGB CONC; Value: 33.5; Range: 32.0-36.5; Units: g/dl; Status: F Test: RED CELL DISTRIBUTION WIDTH; Value: 14.4; Range: 11.5-14.5; Units: %; Status: F Test: PLATELET COUNT, AUTOMATED; Value: 176; Range: 150-450; Units: k/mm3; Status: F Test: NEUTROPHILS %; Value: 73.8; Range: 36.0-66.0; Abnormal: Above high normal; Units: %; Status: F Test: LYMPH %; Value: 16.6; Range: 24.0-44.0; Abnormal: Below low normal; Units: %; Status: F Test: MONO %; Value: 5.0; Range: 0.0-5.0; Units: %; Status: F Test: EOS %; Value: 2.0; Range: 0.0-3.0; Units: %; Status: F Test: BASO %; Value: 1.4; Range: 0.0-1.0; Abnormal: Above high normal; Units: %; Status: F Test: LARGE UNSTAINED CELL %; Value: 1.2; Range: 0.0-4.0; Units: %; Status: F Test: NEUTROPHILS #; Value: 8.7; Range: 1.8-7.7; Abnormal: Above high normal; Units: K/mm3; Status: F Test: LYMPH #; Value: 2.1; Range: 1.5-4.5; Units: K/mm3; Status: F Test: MONO #; Value: 0.6; Range: 0.0-0.8; Units: K/mm3; Status: F Test: EOS #; Value: 0.2; Range: 0.0-0.50; Units: K/mm3; Status: F Test: BASO #; Value: 0.2; Range: 0.0-0.2; Units: K/mm3; Status: F Test: LARGE UNSTAINED CELL #; Value: 0.1; Range: 0.0-0.4; Units: K/mm3; Status: F Lab Order: Cardiac Injury Profile; SPEC'M 06/29/16 11:59 Test: CPK CREATINE PHOSPHOKINASE; Value: 50; Range: 39-308; Units: U/L; Status: F Test: CK-MB VALUE MASS; Value: 1.9; Range: 0.0-3.6; Units: NG/ML; Status: F Test: MB/CK RELATIVE INDEX; Value: 3.80; Range: < OR =4; Status: F Test Note: ; DIAGNOSIS CRITERIA MMB ng/ml Relative Index (RI) NON-AMI < or = 5 N/A L[place]ONE > 5 < or = 4 AMI > 5 > 4 Lab Order: Troponin; SPEC'M 06/29/16 11:59 Test: TROPONIN I; Value: 0.03; Range: < 0.10; Units: NG/ML; Status: F Test Note: ; Troponin I Reference Interval for [facility] LOCI: 99th Percentile= 0.00-0.045 ng/ml Risk Stratification: <= 0.10 ng/ml Decreased Risk for Adverse Clinical Events. 0.10-1.50 ng/ml Increased Risk for Adverse Clinical Events. Evaluation of additional criterion and/or repeat testing in 2-6 hours is suggested to rule out myocardial damage. >= 1.50 ng/ml Indicative of Myocardial Injury. Radiology Order: Chest, 1 View Test: Chest, 1 View REASON FOR EXAMINATION: Shortness of Breath; Portable chest, 06/29/2016, 11:34, single AP view, patient sitting:; ; Comparison is 2016.; ; Lung lyons are clear. Cardiac size is normal. The lamin, mediastinum, and bony; thorax are unremarkable.; ; There is no interval change.; ; Impression:; ; Negative portable chest.; ; ; Signed by; Gallito Duvall MD 06/29/2016 11:39 A; Outcome: 13:21 Discharge ordered by Provider. sd1 13:54 Discharge Assessment: patient administered narcotics - no. The following High Risk ml6 Discharge criteria are identified: None. Discharged to home ambulatory, with significant other. Condition: stable. Discharge instructions given to patient, Instructed on discharge instructions, follow up and referral plans. medication usage, Demonstrated understanding of instructions, medications, Pt was receptive of discharge instructions/ teaching. Prescriptions given X 1. No special radiology studies were completed. Property :Personal belongings accompany Pt. 13:54 Patient left the ED. ml6 Signatures: Dispatcher [employer] EDMS Sylvia Post MD MD sd1 Sherry Yang, Seismic Plotter Unit deg Sneha Khanna, Ag Reg Delaney Jc kt1 Davide Solano, RN RN ml6 Soledad Ken, BEAM WORKER BEAM WORKER ct3 Freddy Romero, BEAM WORKER BEAM WORKER jrd JEANNETTED
--- NOTE | 2016-06-30 07:18 | ECGEPIP ---
Stationary ECG Study [facility] - ED Test Date: 2016-06-29 Pat Name: LEAH PRO Department: Room: - Gender: M Inseam Leveler: ct : 1940 Requested By: Sylvia Post Order Number: [id number] Reading MD: Sylvia Post Measurements Intervals [place] Rate: 79 P: 84 NE: 141 QRS: 61 QRSD: 97 T: 91 QT: 345 QTc: 396 Interpretive Statements SINUS RHYTHM NONSPECIFIC ST & T-WAVE ABNORMALITY SIMILAR 06/04/16 Electronically Signed On 06-30-2016 7:18:17 EST by Sylvia Post
--- NOTE | 2016-07-01 14:55 | EDDOCDS ---
Nurse's Notes [facility] Name: Leah Flores Age: 76 yrs Sex: Male : 1940 Arrival Date: 06/29/2016 Time: 11:06 Bed 8 Private MD: Diagnosis: Chronic obstructive pulmonary disease with (acute) exacerbation Presentation: 06/29 11:10 Presenting complaint: Patient states: states increasing SOB since lastnight. Adult ml6 Sepsis Screening: The patient does not have new or worsening altered mentation. Patient's respiratory rate is less than 22. Systolic blood pressure is greater than 100. Patient has a qSOFA score of 0- Negative Sepsis Screen. Suicide/Homicide risk assessment- the patient denies having any suicidal and/or homicidal ideations and does not present with any other emotional, behavioral or mental health complaints. Status: Patient is not a home service demonstrator or dependent. Transition of care: patient was not received from another setting of care. 11:10 Acuity: ELLY Level 3 ml6 11:10 Method Of Arrival: Ambulance ml6 Triage Assessment: 11:10 General: Appears in no apparent distress, Behavior is anxious, cooperative. Pain: ml6 Denies pain. Cardiovascular: No deficits noted. Capillary refill < 3 seconds is brisk in bilateral fingers toes Heart tones S1 S2 present. Respiratory: Onset: The symptoms/episode began/occurred yesterday, Airway is patent Respiratory effort is even, labored, Respiratory pattern is regular, symmetrical, Breath sounds are diminished bilaterally. Reports shortness of breath at rest on exertion the patient has mild shortness of breath. GI: No deficits noted. Abdomen is flat, non- distended Bowel sounds present X 4 quads. Injury Description: No known injury. Historical: - Allergies: no known allergies; - Home Meds: 1. albuterol sulfate 2.5 mg /3 mL (0.083 %) Inhl nebu daily PRN for Chronic Obstructive Pulmonary Disease (Last dose: 06/29/2016 07:00) 2. aspirin 81 mg Oral chew 1 tab once daily (Last dose: 06/29/2016 08:00) 3. atorvastatin 40 mg oral tab 1 tab once daily for Hypercholesterolemia (Last dose: 06/29/2016 08:00) 4. Brovana 15 mcg/2 mL inhalation nebu 2 mL 2 times per day for Bronchospasm Prevention with COPD (Last dose: 06/29/2016 08:00) 5. carvedilol 12.5 mg oral tab 1 tab every 12 hours for Hypertension (Last dose: 06/29/2016 08:00) 6. Florajen oral daily (Last dose: 06/29/2016 08:00) 7. lisinopril 30 mg Oral tab 1 tab once daily (Last dose: 06/29/2016 08:00) 8. mirtazapine 30 mg Oral tab 1 tab once daily for Depression (Last dose: 06/29/2016 08:00) 9. Oxygen 3L NC daily 2 LPM continuous (Last dose: 06/29/2016 08:00) 10. ProAir HFA 90 mcg/actuation inhalation HFAA 2 puffs every 6 hours (Last dose: 06/29/2016 08:00) 11. Santyl 250 unit/gram Topical oint once daily (Last dose: 06/29/2016 08:00) 12. Spiriva with HandiHaler 18 mcg Inhl CpDv 1 cap once daily (Last dose: 06/29/2016 08:00) 13. theophylline 300 mg Oral tab 1 tab every 12 hours (Last dose: 06/29/2016 08:00) 14. venlafaxine 150 mg oral cp24 1 cap twice a day for Anxiety with Depression (Last dose: 06/29/2016 08:00) 15. Vitamin D Oral 2000 unit daily (Last dose: 06/29/2016 08:00) - PMHx: Aortic Aneurysm; arteriosclerotic heart disease; cellulitis; COPD; Diverticulitis; enlarged prostate; Hiatal Hernia; Hypercholesterolemia; Hypertension; Osteoarthritis; Pneumonia; PVD; traumatic subarachnoid hemorrhage; - PSHx: Hernia repair; Carpal Tunnel Repair- Left; Bone Grafting; Cholecystectomy; Cataract Surgery- Bilateral; endovascular AAA repair; L popliteal artery bypass; - Social history: Smoking status: Patient states former smoker of tobacco. No barriers to communication noted, Speaks appropriately for age. - Family history: Not pertinent. - : The pt / caregiver states he / she is not on anticoagulants. Home medication list is obtained from the patient, Unable to Verify Home Med List with the patient / caregiver. - Exposure Risk Screening:: None identified. Screenin:25 Screening information is obtained from the patient. Fall risk: No risks identified. ml6 Assistance ADL's: requires no assistance with activities of daily living. Abuse/DV Screen: The patient / caregiver reports he/she is: not in a situation that causes fear, pain or injury. Nutritional screening: No deficits noted. Advance Directives: Currently, there is no health care proxy. home support is adequate. Assessment: 11:10 Cardiovascular: Capillary refill < 3 seconds is brisk in bilateral fingers toes Heart ml6 tones S1 S2 present Edema is absent. Pulses are all present. Rhythm is regular Chest pain is denied. Respiratory: Airway is patent Respiratory effort is even, labored, Respiratory pattern is regular, symmetrical, Breath sounds are diminished bilaterally. 12:30 Reassessment: Patient appears in no apparent distress at this time. Patient denies pain ml6 at this time. Patient states feeling better. Patient states symptoms have improved. 13:30 Reassessment: Patient appears in no apparent distress at this time. Patient denies pain ml6 at this time. Patient states feeling better. Patient states symptoms have improved. 13:53 General: Appears in no apparent distress, comfortable, Behavior is appropriate for age, ml6 cooperative. Pain: Denies pain. Neurological: No deficits noted. Level of Consciousness is awake, alert, Oriented to person, place, time. Cardiovascular: No deficits noted. Capillary refill < 3 seconds is brisk in bilateral fingers toes. Respiratory: Airway is patent Respiratory effort is even, unlabored, Respiratory pattern is regular, symmetrical, Breath sounds are diminished bilaterally. Reports no respiratory complaints. Vital Signs: 11:19 BP 130 / 66; Pulse 77; Resp 18; Temp 99.3(TE); Pulse Ox 100% on 2 lpm NC; Weight 78.93 ct3 kg (R); Height 5 ft. 7 in. (170.18 cm) (R); Pain 6/10; 13:33 BP 150 / 82 RA Sitting (auto/reg); Pulse 74; Resp 18; Temp 97.3(O); Pulse Ox 97% on jrd R/A; Pain 0/10; 11:19 Body Mass Index 27.25 (78.93 kg, 170.18 cm) ct3 Vitals: 11:19 Log In Time N/A - ambulance arrival. ct3 ED Course: 11:07 Patient visited by Sherry Yang, Briar Cutter. deg 11:07 Patient moved to Waiting deg 11:09 Patient moved to [facility]3 11:10 Sylvia Post MD is Attending Physician. sd1 11:10 Maintain field IV. Dressing intact. Good blood return noted. Site clean & dry. Gauge & ml6 site: 20g Right FA. 11:12 Patient visited by Sylvia Post MD. sd1 11:19 EKG done. (by ED staff). Reviewed by Sylvia Post MD. ct3 11:21 Triage Initiated ml6 11:22 Accompanied by Family Member, Patient has correct armband on for positive ct3 identification. Placed in gown. Bed in low position. Call light in reach. Side rails up X2. bus monitor on. Pulse ox on. NIBP on. 11:23 Patient visited by Soledad Ken PCA. ct3 11:43 -Arterial Blood Gas Sent. kt1 12:07 Chest, 1 View Returned. EDMS 12:11 Patient visited by Davide Solano, GASPER. ml6 12:34 Patient visited by Davide Solano RN. ml6 12:48 [facility] Payment Agreement was scanned into [employer] and attached to record. lg 13:20 Dilcia Glover is Referral Physician. sd1 13:20 Mary Zaragoza is Referral Physician. sd1 13:33 Patient visited by Freddy Romero PCA. jrd 13:53 Discontinued IV bleeding controlled, pressure dressing applied, No redness/swelling at ml6 site. No procedures done that require assistance. 13:54 The patient / caregiver is instructed regarding the plan of care and ED course. ml6 14:32 T-Sheet-- Draft Copy was scanned into [employer] and attached to record. gb 14:32 ECG/EKG was scanned into [employer] and attached to record. gb 14:32 Rhythm Strip was scanned into [employer] and attached to record. gb 06/30 07:52 EKG-ADULT Returned. EDMS Administered Medications: 06/29 11:30 Drug: Albuterol-Ipratropium 1 neb [ipratropium-albuterol 0.5 mg-3 mg(2.5 mg base)/3 mL kt1 nebulization soln (1 neb)] Route: Nebulizer; 11:40 Drug: Albuterol-Ipratropium 1 neb [ipratropium-albuterol 0.5 mg-3 mg(2.5 mg base)/3 mL kt1 nebulization soln (1 neb)] Route: Nebulizer; 11:43 Follow up: Response: Nebulizer completed kt1 12:00 Drug: Albuterol-Ipratropium 1 neb [ipratropium-albuterol 0.5 mg-3 mg(2.5 mg base)/3 mL kt1 nebulization soln (1 neb)] Route: Nebulizer; 12:00 Follow up: Response: Nebulizer completed kt1 Attachments: 14:32 Rhythm Strip gb RT: 11:30 ABG's drawn from right radial artery pressure held for 5 minutes no bleeding noted kt1 pressure bandage applied specimen sent pt. tolerated well. Initial Med Neb Given as ordered Patient was instructed and evaluated on procedure Patient tolerated procedure well without adverse effect. Respiratory: Breath sounds are diminished bilaterally. 11:44 Subsequent Med Neb Given as ordered. Respiratory: Breath sounds are diminished kt1 bilaterally. Breath sounds with wheezes in left upper lobe and left lower lobe at expiration. 12:00 Subsequent Med Neb Given as ordered Patient tolerated procedure well without adverse kt1 effect. Order Results: Lab Order: -Arterial Blood Gas; SPEC'M 06/29/16 11:26 Test: ABG pH (ARTERIAL); Value: 7.406; Range: 7.350-7.450; Units: UNITS; Status: F Test: ABG PARTIAL PRESSURE CO2; Value: 43.6; Range: 35.0-45.0; Units: mmHg; Status: F Test: ABG PARTIAL PRESSURE O2; Value: 113.6; Range: 75.0-100.0; Abnormal: Above high normal; Units: mmHg; Status: F Test: ABG TOTAL CO2; Value: 28.1; Range: 23.0-31.0; Units: MEQ/L; Status: F Test: ABG HCO3; Value: 26.8; Range: 22.0-26.0; Abnormal: Above high normal; Units: MEQ/L; Status: F Test: ABG BASE EXCESS; Value: 1.8; Range: -2.0-2.0; Status: F Test: ABG STANDARD HCO3; Value: 26.1; Range: 22.0-26.0; Abnormal: Above high normal; Units: MEQ/L; Status: F Test: ABG O2 SATURATION; Value: 98.2; Range: 95.0-99.0; Units: %; Status: F Test: ABG DEVICE; Value: NASAL RED; Status: F Lab Order: -Blood Culture; SPEC'M 06/29/16 11:59 Test: BLOOD CULTURE; Value: No growth after 24 hours . All specimens observed; Status: F Test: BLOOD CULTURE; Value: for 5 days. Results final at that time.; Status: F Test: BLOOD CULTURE; Value: No Growth after 48 hours. All Specimens observed; Status: F Test: BLOOD CULTURE; Value: for 7 days. Results final at that time.; Status: F Lab Order: B-Type Natiuretic Peptide; SPEC'M 06/29/16 12:05 Test: BRAIN NATRIURETIC PEPTIDE; Value: 47.1; Range: <100; Units: PG/ML; Status: F Lab Order: Basic Metabolic Profile; SPEC'M 06/29/16 11:59 Test: GLUCOSE, FASTING; Value: 118; Range: 83-110; Abnormal: Above high normal; Units: MG/DL; Status: F Test: BLOOD UREA NITROGEN; Value: 26; Range: 7-18; Abnormal: Above high normal; Units: MG/DL; Status: F Test: CREATININE FOR GFR; Value: 1.47; Range: 0.70-1.30; Abnormal: Above high normal; Units: MG/DL; Status: F Test: GLOMERULAR FILTRATION RATE; Value: 49.6; Range: >42; Status: F Test: SODIUM LEVEL; Value: 142; Range: 136-145; Units: MEQ/L; Status: F Test: POTASSIUM SERUM; Value: 4.1; Range: 3.5-5.1; Units: MEQ/L; Status: F Test: CHLORIDE LEVEL; Value: 105; Range: 98-107; Units: MEQ/L; Status: F Test: CARBON DIOXIDE LEVEL; Value: 31; Range: 21-32; Units: MEQ/L; Status: F Test: ANION GAP; Value: 6; Range: 8-16; Abnormal: Below low normal; Units: MEQ/L; Status: F Test: CALCIUM LEVEL; Value: 9.6; Range: 8.8-10.2; Units: MG/DL; Status: F Test Note: ; Units are mL/min/1.73 m2 Chronic Kidney Disease Staging per NKF: Stage I & II GFR >=60 Normal to Mildly Decreased Stage III GFR 30-59 Moderately Decreased Stage IV GFR 15-29 Severely Decreased Stage V GFR <15 Very Little GFR Left ESRD GFR <15 on BAND SAW OPERATOR Lab Order: CBC with Diff; SPEC'M 06/29/16 12:04 Test: WHITE BLOOD COUNT; Value: 11.8; Range: 4.0-10.0; Abnormal: Above high normal; Units: K/mm3; Status: F Test: RED BLOOD COUNT; Value: 3.69; Range: 4.30-6.10; Abnormal: Below low normal; Units: M/mm3; Status: F Test: HEMOGLOBIN; Value: 11.6; Range: 14.0-18.0; Abnormal: Below low normal; Units: g/dl; Status: F Test: HEMATOCRIT; Value: 34.8; Range: 42.0-52.0; Abnormal: Below low normal; Units: %; Status: F Test: MEAN CORPUSCULAR VOLUME; Value: 94.2; Range: 80.0-96.0; Units: fl; Status: F Test: MEAN CORPUSCULAR HEMOGLOBIN; Value: 31.5; Range: 27.0-33.0; Units: pg; Status: F Test: MEAN CORPUSCULAR HGB CONC; Value: 33.5; Range: 32.0-36.5; Units: g/dl; Status: F Test: RED CELL DISTRIBUTION WIDTH; Value: 14.4; Range: 11.5-14.5; Units: %; Status: F Test: PLATELET COUNT, AUTOMATED; Value: 176; Range: 150-450; Units: k/mm3; Status: F Test: NEUTROPHILS %; Value: 73.8; Range: 36.0-66.0; Abnormal: Above high normal; Units: %; Status: F Test: LYMPH %; Value: 16.6; Range: 24.0-44.0; Abnormal: Below low normal; Units: %; Status: F Test: MONO %; Value: 5.0; Range: 0.0-5.0; Units: %; Status: F Test: EOS %; Value: 2.0; Range: 0.0-3.0; Units: %; Status: F Test: BASO %; Value: 1.4; Range: 0.0-1.0; Abnormal: Above high normal; Units: %; Status: F Test: LARGE UNSTAINED CELL %; Value: 1.2; Range: 0.0-4.0; Units: %; Status: F Test: NEUTROPHILS #; Value: 8.7; Range: 1.8-7.7; Abnormal: Above high normal; Units: K/mm3; Status: F Test: LYMPH #; Value: 2.1; Range: 1.5-4.5; Units: K/mm3; Status: F Test: MONO #; Value: 0.6; Range: 0.0-0.8; Units: K/mm3; Status: F Test: EOS #; Value: 0.2; Range: 0.0-0.50; Units: K/mm3; Status: F Test: BASO #; Value: 0.2; Range: 0.0-0.2; Units: K/mm3; Status: F Test: LARGE UNSTAINED CELL #; Value: 0.1; Range: 0.0-0.4; Units: K/mm3; Status: F Lab Order: Cardiac Injury Profile; SPEC'M 06/29/16 11:59 Test: CPK CREATINE PHOSPHOKINASE; Value: 50; Range: 39-308; Units: U/L; Status: F Test: CK-MB VALUE MASS; Value: 1.9; Range: 0.0-3.6; Units: NG/ML; Status: F Test: MB/CK RELATIVE INDEX; Value: 3.80; Range: < OR =4; Status: F Test Note: ; DIAGNOSIS CRITERIA MMB ng/ml Relative Index (RI) NON-AMI < or = 5 N/A LANG ZONE > 5 < or = 4 AMI > 5 > 4 Lab Order: Troponin; SPEC'M 06/29/16 11:59 Test: TROPONIN I; Value: 0.03; Range: < 0.10; Units: NG/ML; Status: F Test Note: ; Troponin I Reference Interval for [employer] LOCI: 99th Percentile= 0.00-0.045 ng/ml Risk Stratification: <= 0.10 ng/ml Decreased Risk for Adverse Clinical Events. 0.10-1.50 ng/ml Increased Risk for Adverse Clinical Events. Evaluation of additional criterion and/or repeat testing in 2-6 hours is suggested to rule out myocardial damage. >= 1.50 ng/ml Indicative of Myocardial Injury. Lab Order: BLOOD CULTURES; SPEC'M 06/29/16 12:06 Test: BLOOD CULTURE; Value: No growth after 24 hours . All specimens observed; Status: F Test: BLOOD CULTURE; Value: for 5 days. Results final at that time.; Status: F Test: BLOOD CULTURE; Value: No Growth after 48 hours. All Specimens observed; Status: F Test: BLOOD CULTURE; Value: for 7 days. Results final at that time.; Status: F Radiology Order: Chest, 1 View Test: Chest, 1 View REASON FOR EXAMINATION: Shortness of Breath; Portable chest, 06/29/2016, 11:34, single AP view, patient sitting:; ; Comparison is 2016.; ; Lung lyons are clear. Cardiac size is normal. The lamin, mediastinum, and bony; thorax are unremarkable.; ; There is no interval change.; ; Impression:; ; Negative portable chest.; ; ; Signed by; Gallito Duvall MD 06/29/2016 11:39 A; Radiology Order: EKG-ADULT Test: EKG-ADULT REASON FOR EXAMINATION: Shortness of Breath; Stationary ECG Study; [facility] - ED; ; Test Date: 2016-06-29; Pat Name: LEAH FLORES Department:; Room: -; Gender: M Global Program Manager: ct; : 1940 Requested By: Sylvia Post; Order Number: [id number] Reading MD: Sylvia Post; Measurements; Intervals Taylor; Rate: 79 P: 84; PA: 141 QRS: 61; QRSD: 97 T: 91; QT: 345; QTc: 396; Interpretive Statements; SINUS RHYTHM; NONSPECIFIC ST T-WAVE ABNORMALITY; SIMILAR 06/04/16; Electronically Signed On 06-30-2016 7:18:17 EST by Sylvia Post; Outcome: 13:21 Discharge ordered by Provider. sd1 13:54 Discharge Assessment: patient administered narcotics - no. The following High Risk ml6 Discharge criteria are identified: None. Discharged to home ambulatory, with significant other. Condition: stable. Discharge instructions given to patient, Instructed on discharge instructions, follow up and referral plans. medication usage, Demonstrated understanding of instructions, medications, Pt was receptive of discharge instructions/ teaching. Prescriptions given X 1. No special radiology studies were completed. Property :Personal belongings accompany Pt. 13:54 Patient left the ED. ml6 Signatures: Dispatcher [employer] EDMS Sylvia Post MD MD sd1 Sherry Yang, Briar Cutter Unit deg Kirstin Scott, Reg Reg gb Sneha Khanna, Reg Reg lg Delaney Byrnes kt1 Davide Solano, RN RN ml6 Soledad Ken, SLIP COVER SEWER SLIP COVER SEWER ct3 Freddy Romero, [facility] SLIP COVER SEWER jrd Chart Complete MTDD
--- NOTE | 2016-07-01 14:55 | EDDOCDS ---
Physician Documentation [facility] Name: Feliciano Flores Age: 76 yrs Sex: Male : 1940 Arrival Date: 06/29/2016 Time: 11:06 Bed 8 Private MD: Disposition: 06/29/16 13:21 Discharged to Home/Self Care. Impression: Chronic obstructive pulmonary disease with (acute) exacerbation. - Condition is Stable. - Discharge Instructions: Chronic Obstructive Pulmonary Disease. - Prescriptions for Prednisone 20 mg Oral Tablet - take 3 tablet by ORAL route once daily for 5 days; 15 tablet. - Medication Reconciliation, Local Pharmacy Hours form. - Follow up: Dilcia Glover; When: 1 - 2 days. Follow up: Mary Zaragoza; When: keep previously scheduled appointment. - Problem is an acute exacerbation. - Symptoms have improved. Historical: - Allergies: no known allergies; - Home Meds: 1. albuterol sulfate 2.5 mg /3 mL (0.083 %) Inhl nebu daily PRN for Chronic Obstructive Pulmonary Disease (Last dose: 06/29/2016 07:00) 2. aspirin 81 mg Oral chew 1 tab once daily (Last dose: 06/29/2016 08:00) 3. atorvastatin 40 mg oral tab 1 tab once daily for Hypercholesterolemia (Last dose: 06/29/2016 08:00) 4. Brovana 15 mcg/2 mL inhalation nebu 2 mL 2 times per day for Bronchospasm Prevention with COPD (Last dose: 06/29/2016 08:00) 5. carvedilol 12.5 mg oral tab 1 tab every 12 hours for Hypertension (Last dose: 06/29/2016 08:00) 6. Florajen oral daily (Last dose: 06/29/2016 08:00) 7. lisinopril 30 mg Oral tab 1 tab once daily (Last dose: 06/29/2016 08:00) 8. mirtazapine 30 mg Oral tab 1 tab once daily for Depression (Last dose: 06/29/2016 08:00) 9. Oxygen 3L NC daily 2 LPM continuous (Last dose: 06/29/2016 08:00) 10. ProAir HFA 90 mcg/actuation inhalation HFAA 2 puffs every 6 hours (Last dose: 06/29/2016 08:00) 11. Santyl 250 unit/gram Topical oint once daily (Last dose: 06/29/2016 08:00) 12. Spiriva with HandiHaler 18 mcg Inhl CpDv 1 cap once daily (Last dose: 06/29/2016 08:00) 13. theophylline 300 mg Oral tab 1 tab every 12 hours (Last dose: 06/29/2016 08:00) 14. venlafaxine 150 mg oral cp24 1 cap twice a day for Anxiety with Depression (Last dose: 06/29/2016 08:00) 15. Vitamin D Oral 2000 unit daily (Last dose: 06/29/2016 08:00) - PMHx: Aortic Aneurysm; arteriosclerotic heart disease; cellulitis; COPD; Diverticulitis; enlarged prostate; Hiatal Hernia; Hypercholesterolemia; Hypertension; Osteoarthritis; Pneumonia; PVD; traumatic subarachnoid hemorrhage; - PSHx: Hernia repair; Carpal Tunnel Repair- Left; Bone Grafting; Cholecystectomy; Cataract Surgery- Bilateral; endovascular AAA repair; L popliteal artery bypass; - Social history: Smoking status: Patient states former smoker of tobacco. No barriers to communication noted, Speaks appropriately for age. - Family history: Not pertinent. - : The pt / caregiver states he / she is not on anticoagulants. Home medication list is obtained from the patient, Unable to Verify Home Med List with the patient / caregiver. - Exposure Risk Screening:: None identified. Vital Signs: 06/29 11:19 BP 130 / 66; Pulse 77; Resp 18; Temp 99.3(TE); Pulse Ox 100% on 2 lpm NC; Weight 78.93 ct3 kg / 174.01 lbs (R); Height 5 ft. 7 in. (170.18 cm) (R); Pain 6/10; 13:33 BP 150 / 82 RA Sitting (auto/reg); Pulse 74; Resp 18; Temp 97.3(O); Pulse Ox 97% on jrd R/A; Pain 0/10; 11:19 Body Mass Index 27.25 (78.93 kg, 170.18 cm) ct3 MDM: 11:10 -Blood Culture (Adults Only), peripheral from different site, or from device/port/PICC sd1 etc. if present ordered. 11:10 Office Helper/Pulse Ox/q 15 min VS ordered. sd1 11:10 IV Saline Lock ordered. sd1 11:10 Oxygen at 4L/Min NC or Home dosage ordered. sd1 11:10 Rhythm Strip to chart ordered. sd1 11:11 -Arterial Blood Gas Ordered. EDMS 11:11 B-Type Natiuretic Peptide Ordered. EDMS 11:11 Basic Metabolic Profile Ordered. EDMS 11:11 CBC with Diff Ordered. EDMS 11:11 Cardiac Injury Profile Ordered. EDMS 11:11 Troponin Ordered. EDMS 11:11 -Blood Culture Ordered. EDMS 11:12 Chest, 1 View Ordered. EDMS 11:12 ECG WITH READING ER PHYS+CARDIAG ordered. EDMS 11:14 -Blood Culture (Adults Only), peripheral from different site, or from device/port/PICC deg etc. if present complete. 11:15 BLOOD CULTURES Ordered. EDMS 11:16 Albuterol-Ipratropium 1 neb Nebulizer every 20 minutes x3 ordered. sd1 12:02 -Arterial Blood Gas Reviewed. sd1 12:16 Financial registration complete. lg 12:44 Chest, 1 View Reviewed. sd1 12:48 [facility] Payment Agreement was scanned into [employer] and attached to record. lg 13:14 Basic Metabolic Profile Reviewed. sd1 13:14 CBC with Diff Reviewed. sd1 13:14 Cardiac Injury Profile Reviewed. sd1 13:14 Troponin Reviewed. sd1 13:15 Misc. Nursing Order ordered. sd1 14:32 T-Sheet-- Draft Copy was scanned into [employer] and attached to record. gb 14:32 ECG/EKG was scanned into [employer] and attached to record. gb 14:32 Rhythm Strip was scanned into [employer] and attached to record. gb Administered Medications: 11:30 Drug: Albuterol-Ipratropium 1 neb [ipratropium-albuterol 0.5 mg-3 mg(2.5 mg base)/3 mL kt1 nebulization soln (1 neb)] Route: Nebulizer; 11:40 Drug: Albuterol-Ipratropium 1 neb [ipratropium-albuterol 0.5 mg-3 mg(2.5 mg base)/3 mL kt1 nebulization soln (1 neb)] Route: Nebulizer; 11:43 Follow up: Response: Nebulizer completed kt1 12:00 Drug: Albuterol-Ipratropium 1 neb [ipratropium-albuterol 0.5 mg-3 mg(2.5 mg base)/3 mL kt1 nebulization soln (1 neb)] Route: Nebulizer; 12:00 Follow up: Response: Nebulizer completed kt1 Signatures: Dispatcher [employer] Sylvia Hernandez MD MD sd1 Sherry Yang, Traffic Director Unit deg Kirstin Scott, Reg Reg gb Sneha Khanna, Reg Reg lg Davide Solano RN RN ml6 Delaney Byrnes kt1 The chart was reviewed and I authenticate all verbal orders and agree with the evaluation and treatment provided.Attachments: 12:48 [facility] Payment Agreement lg 14:32 T-Sheet-- Draft Copy gb 14:32 ECG/EKG gb Chart Complete MTDD
--- NOTE | 2016-07-01 14:55 | EDDOCDS ---
Physician Documentation [facility] Name: Feliciano Flores Age: 76 yrs Sex: Male : 1940 Arrival Date: 06/29/2016 Time: 11:06 Bed 8 Private MD: Disposition: 06/29/16 13:21 Discharged to Home/Self Care. Impression: Chronic obstructive pulmonary disease with (acute) exacerbation. - Condition is Stable. - Discharge Instructions: Chronic Obstructive Pulmonary Disease. - Prescriptions for Prednisone 20 mg Oral Tablet - take 3 tablet by ORAL route once daily for 5 days; 15 tablet. - Medication Reconciliation, Local Pharmacy Hours form. - Follow up: Dilcia Glover; When: 1 - 2 days. Follow up: Mary Zaragoza; When: keep previously scheduled appointment. - Problem is an acute exacerbation. - Symptoms have improved. Historical: - Allergies: no known allergies; - Home Meds: 1. albuterol sulfate 2.5 mg /3 mL (0.083 %) Inhl nebu daily PRN for Chronic Obstructive Pulmonary Disease (Last dose: 06/29/2016 07:00) 2. aspirin 81 mg Oral chew 1 tab once daily (Last dose: 06/29/2016 08:00) 3. atorvastatin 40 mg oral tab 1 tab once daily for Hypercholesterolemia (Last dose: 06/29/2016 08:00) 4. Brovana 15 mcg/2 mL inhalation nebu 2 mL 2 times per day for Bronchospasm Prevention with COPD (Last dose: 06/29/2016 08:00) 5. carvedilol 12.5 mg oral tab 1 tab every 12 hours for Hypertension (Last dose: 06/29/2016 08:00) 6. Florajen oral daily (Last dose: 06/29/2016 08:00) 7. lisinopril 30 mg Oral tab 1 tab once daily (Last dose: 06/29/2016 08:00) 8. mirtazapine 30 mg Oral tab 1 tab once daily for Depression (Last dose: 06/29/2016 08:00) 9. Oxygen 3L NC daily 2 LPM continuous (Last dose: 06/29/2016 08:00) 10. ProAir HFA 90 mcg/actuation inhalation HFAA 2 puffs every 6 hours (Last dose: 06/29/2016 08:00) 11. Santyl 250 unit/gram Topical oint once daily (Last dose: 06/29/2016 08:00) 12. Spiriva with HandiHaler 18 mcg Inhl CpDv 1 cap once daily (Last dose: 06/29/2016 08:00) 13. theophylline 300 mg Oral tab 1 tab every 12 hours (Last dose: 06/29/2016 08:00) 14. venlafaxine 150 mg oral cp24 1 cap twice a day for Anxiety with Depression (Last dose: 06/29/2016 08:00) 15. Vitamin D Oral 2000 unit daily (Last dose: 06/29/2016 08:00) - PMHx: Aortic Aneurysm; arteriosclerotic heart disease; cellulitis; COPD; Diverticulitis; enlarged prostate; Hiatal Hernia; Hypercholesterolemia; Hypertension; Osteoarthritis; Pneumonia; PVD; traumatic subarachnoid hemorrhage; - PSHx: Hernia repair; Carpal Tunnel Repair- Left; Bone Grafting; Cholecystectomy; Cataract Surgery- Bilateral; endovascular AAA repair; L popliteal artery bypass; - Social history: Smoking status: Patient states former smoker of tobacco. No barriers to communication noted, Speaks appropriately for age. - Family history: Not pertinent. - : The pt / caregiver states he / she is not on anticoagulants. Home medication list is obtained from the patient, Unable to Verify Home Med List with the patient / caregiver. - Exposure Risk Screening:: None identified. Vital Signs: 06/29 11:19 BP 130 / 66; Pulse 77; Resp 18; Temp 99.3(TE); Pulse Ox 100% on 2 lpm NC; Weight 78.93 ct3 kg / 174.01 lbs (R); Height 5 ft. 7 in. (170.18 cm) (R); Pain 6/10; 13:33 BP 150 / 82 RA Sitting (auto/reg); Pulse 74; Resp 18; Temp 97.3(O); Pulse Ox 97% on jrd R/A; Pain 0/10; 11:19 Body Mass Index 27.25 (78.93 kg, 170.18 cm) ct3 MDM: 11:10 -Blood Culture (Adults Only), peripheral from different site, or from device/port/PICC sd1 etc. if present ordered. 11:10 Finish Production Manager/Pulse Ox/q 15 min VS ordered. sd1 11:10 IV Saline Lock ordered. sd1 11:10 Oxygen at 4L/Min NC or Home dosage ordered. sd1 11:10 Rhythm Strip to chart ordered. sd1 11:11 -Arterial Blood Gas Ordered. EDMS 11:11 B-Type Natiuretic Peptide Ordered. EDMS 11:11 Basic Metabolic Profile Ordered. EDMS 11:11 CBC with Diff Ordered. EDMS 11:11 Cardiac Injury Profile Ordered. EDMS 11:11 Troponin Ordered. EDMS 11:11 -Blood Culture Ordered. EDMS 11:12 Chest, 1 View Ordered. EDMS 11:12 ECG WITH READING ER PHYS+CARDIAG ordered. EDMS 11:14 -Blood Culture (Adults Only), peripheral from different site, or from device/port/PICC deg etc. if present complete. 11:15 BLOOD CULTURES Ordered. EDMS 11:16 Albuterol-Ipratropium 1 neb Nebulizer every 20 minutes x3 ordered. sd1 12:02 -Arterial Blood Gas Reviewed. sd1 12:16 Financial registration complete. lg 12:44 Chest, 1 View Reviewed. sd1 12:48 [facility] [place] Payment Agreement was scanned into [employer] and attached to record. lg 13:14 Basic Metabolic Profile Reviewed. sd1 13:14 CBC with Diff Reviewed. sd1 13:14 Cardiac Injury Profile Reviewed. sd1 13:14 Troponin Reviewed. sd1 13:15 Misc. Nursing Order ordered. sd1 14:32 T-Sheet-- Draft Copy was scanned into [employer] and attached to record. gb 14:32 ECG/EKG was scanned into [employer] and attached to record. gb 14:32 Rhythm Strip was scanned into [employer] and attached to record. gb Administered Medications: 11:30 Drug: Albuterol-Ipratropium 1 neb [ipratropium-albuterol 0.5 mg-3 mg(2.5 mg base)/3 mL kt1 nebulization soln (1 neb)] Route: Nebulizer; 11:40 Drug: Albuterol-Ipratropium 1 neb [ipratropium-albuterol 0.5 mg-3 mg(2.5 mg base)/3 mL kt1 nebulization soln (1 neb)] Route: Nebulizer; 11:43 Follow up: Response: Nebulizer completed kt1 12:00 Drug: Albuterol-Ipratropium 1 neb [ipratropium-albuterol 0.5 mg-3 mg(2.5 mg base)/3 mL kt1 nebulization soln (1 neb)] Route: Nebulizer; 12:00 Follow up: Response: Nebulizer completed kt1 Signatures: Dispatcher [employer] Sylvia Hernandez MD MD sd1 Sherry Yang, [place] Unit deg Kirstin Scott, Reg Reg gb Sneha Khanna, Reg Reg lg Davide Solano RN RN ml6 Delaney Byrnes kt1 The chart was reviewed and I authenticate all verbal orders and agree with the evaluation and treatment provided.Attachments: 12:48 [facility] [place] Payment Agreement lg 14:32 T-Sheet-- Draft Copy gb 14:32 ECG/EKG gb Chart Complete MTDD
== END 2016-06-29 13:54 | disposition home or self-care (01) ==
LOC: M ED 11:06
DX: J44.9 Chronic obstructive pulmonary disease, unspecified (principal); I10 Essential (primary) hypertension; I25.10 Atherosclerotic heart disease of native coronary artery without angina pectoris; E78.00 Pure hypercholesterolemia, unspecified; M19.90 Unspecified osteoarthritis, unspecified site; Z79.899 Other long term (current) drug therapy; Z79.82 Long term (current) use of aspirin; Z79.51 Long term (current) use of inhaled steroids; Z99.81 Dependence on supplemental oxygen

== ENCOUNTER 2016-07-14 08:15 | Emergency (ER) | payer MEDICARE ==
[2016-07-14 08:53] LABS: BASO # 0.1 K/mm3 (0.0-0.2); BASO % 0.4 % (0.0-1.0); EOS # 0.3 K/mm3 (0.0-0.50); EOS % 1.9 % (0.0-3.0); LARGE UNSTAINED CELL # 0.1 K/mm3 (0.0-0.4); LARGE UNSTAINED CELL % 0.9 % (0.0-4.0); LYMPH % 13.1 % (24.0-44.0); MEAN CORPUSCULAR HEMOGLOBIN 31.7 pg (27.0-33.0); MEAN CORPUSCULAR HGB CONC 33.8 g/dl (32.0-36.5); MEAN CORPUSCULAR VOLUME 93.8 fl (80.0-96.0); MONO # 0.5 K/mm3 (0.0-0.8); MONO % 3.7 % (0.0-5.0); NEUTROPHILS # 11.6 K/mm3 (1.8-7.7); PLATELET COUNT, AUTOMATED 162 k/mm3 (150-450); RED CELL DISTRIBUTION WIDTH 13.5 % (11.5-14.5); WHITE BLOOD COUNT 14.5 K/mm3 (4.0-10.0)
[2016-07-14 09:15] LABS: CALCIUM LEVEL 9.3 MG/DL (8.8-10.2); CREATININE FOR GFR 1.37 MG/DL (0.70-1.30); GLOMERULAR FILTRATION RATE 53.8 (>42); POTASSIUM SERUM 3.9 MEQ/L (3.5-5.1)
[2016-07-14 09:21] LABS: ABG BASE EXCESS -0.1 (-2.0-2.0); ABG DEVICE NASAL CANN; ABG HCO3 24.7 MEQ/L (22.0-26.0); ABG PARTIAL PRESSURE CO2 40.9 mmHg (35.0-45.0); ABG PARTIAL PRESSURE O2 95.5 mmHg (75.0-100.0); ABG STANDARD HCO3 24.4 MEQ/L (22.0-26.0); ABG pH (ARTERIAL) 7.399 UNITS (7.350-7.450)
--- NOTE | 2016-07-14 09:22 | REP ---
Portable chest, 08:53 a.m. , single AP view, the patient semi upright: Comparison is 06/29/2016. The lung lyons are clear. The cardiac size is normal The lamin, mediastinum, and bony thorax are unremarkable. Impression: Negative portable chest. There is no interval change. Signed by Gallito Duvall MD 07/14/2016 09:13 A
[2016-07-14] MEDS ORDERED: methylPREDNISolone INJ 125 MG/2 ML VIAL (J2930) As Ordered ONE (11:21)
[2016-07-14] MEDS ORDERED: ISOVUE-370 76% 100ML VIAL (Q9967) As Ordered ONE (11:35)
[2016-07-14 11:53] LABS: THEOPHYLLINE LEVEL 12.3 UG/ML (10.0-20.0)
--- NOTE | 2016-07-14 12:13 | REP ---
CT pulmonary angiogram: With IV contrast. History: Cough. Shortness of breath. Comparison studies: Comparison is made with today's chest x-ray. No comparison chest CT. Contrast dose: 75 cc's of Isovue [address] technique: Helical scanning is acquired and overlapping 1.5 mm and contiguous 3 mm axial images are reformatted. In addition, a 3-D work station is deployed to generate thick slab maximum intensity projection images in sagittal and coronal imaging projections. CT pulmonary angiographic findings: There is good opacification of the pulmonary arterial tree. There is no CT evidence of pulmonary embolism. The thoracic aorta enhances homogeneously and shows vascular calcification but no evidence of aneurysm or dissection. Maximum intensity projection images show no evidence of vessel cutoff or filling defect to suggest pulmonary arterial thrombus. There is no evidence of pleural or pericardial effusion. There are three small somewhat spiculated opacities adjacent to one another in the right upper lobe. There is some interstitial streaking surrounding these. This is nonspecific. This could be early neoplasia or a subtle inflammatory infiltrate. The nodular components measure 6, 6, and 7 mm respectively. No other significant pulmonary opacification is seen. There is a granulomatous lymph node calcification in the right paratracheal region. The visualized upper abdominal structures are remarkable only for clips in the gallbladder fossa. No adrenal lesion is seen. Impression: 1. No CT evidence of pulmonary embolus. 2. There is a cluster of three somewhat spiculated appearing nodular opacities in the right upper lobe as described above. These are indeterminate. Follow-up CT scan is indicated in 3-4 months. Signed by Chris Bernstein MD 07/14/2016 12:53 P
--- NOTE | 2016-07-14 13:29 | EDDOCDS ---
Physician Documentation [facility] Name: Feliciano Flores Age: 76 yrs Sex: Male : 1940 Arrival Date: 07/14/2016 Time: 08:15 Bed 9 Private MD: Feliciano Arroyo, DO Disposition: 07/14/16 13:09 Discharged to Home/Self Care. Impression: Shortness of breath. - Condition is Stable. - Discharge Instructions: Shortness of Breath, [id number]. - Medication Reconciliation, Local Pharmacy Hours form. - Follow up: Feliciano Arroyo; When: Call to arrange an appointment; Reason: Continuance of care. Follow up: Albaro Wilson MD; When: Call to arrange an appointment; Reason: Continuance of care. - Problem is new. - Symptoms have improved. Historical: - Allergies: no known allergies; - Home Meds: 1. albuterol sulfate 2.5 mg /3 mL (0.083 %) Inhl nebu daily PRN for Chronic Obstructive Pulmonary Disease (Last dose: 07/13/2016 20:00) 2. aspirin 81 mg Oral chew 1 tab once daily (Last dose: 07/13/2016 08:00) 3. atorvastatin 40 mg oral tab 1 tab once daily for Hypercholesterolemia (Last dose: 07/13/2016 08:00) 4. Brovana 15 mcg/2 mL inhalation nebu 2 mL 2 times per day for Bronchospasm Prevention with COPD (Last dose: 07/13/2016 20:00) 5. carvedilol 12.5 mg oral tab 1 tab every 12 hours for Hypertension (Last dose: 07/13/2016 20:00) 6. lisinopril 30 mg Oral tab 1 tab once daily (Last dose: 07/13/2016 20:00) 7. mirtazapine 30 mg Oral tab 1 tab once daily for Depression (Last dose: 07/13/2016 20:00) 8. Spiriva with HandiHaler 18 mcg Inhl CpDv 1 cap once daily (Last dose: 07/13/2016 08:00) 9. Oxygen 3L NC daily 2 LPM continuous (Last dose: 07/13/2016 20:00) 10. theophylline 300 mg Oral tab 1 tab every 12 hours (Last dose: 07/13/2016 20:00) 11. venlafaxine 150 mg oral cp24 1 cap twice a day for Anxiety with Depression (Last dose: 07/13/2016 20:00) 12. Florajen oral daily (Last dose: 07/13/2016 08:00) 13. Vitamin D Oral 2000 unit daily (Last dose: 07/13/2016 08:00) 14. magnesium oxide 400 mg Oral cap daily (Last dose: 07/13/2016 08:00) 15. amlodipine 5 mg Oral tab 1 tab once daily for Hypertension (Last dose: 07/13/2016 08:00) - PMHx: Aortic Aneurysm; arteriosclerotic heart disease; cellulitis; COPD; Diverticulitis; enlarged prostate; Hiatal Hernia; Hypercholesterolemia; Hypertension; Osteoarthritis; Pneumonia; PVD; traumatic subarachnoid hemorrhage; Depression; - PSHx: Hernia repair; Carpal Tunnel Repair- Left; Bone Grafting; Cholecystectomy; Cataract Surgery- Bilateral; endovascular AAA repair; L popliteal artery bypass; - Social history: Smoking status: Patient states former smoker of tobacco. No barriers to communication noted, The patient speaks fluent Polish. - Family history: No immediate family members are acutely ill. - : The pt / caregiver states he / she is not on anticoagulants. Home medication list is obtained from patients' pharmacy. - Exposure Risk Screening:: None identified. Vital Signs: 07/14 08:21 BP 140 / 70 (auto/); 5 08:23 Pulse 86 MON; Pulse Ox 99% ; ja5 08:40 BP 140 / 70; Pulse 85; Resp 24; Temp 98.5; Pulse Ox 91% on NC; Pain 4/10; ja5 08:51 BP 141 / 68 (auto/); ja5 08:51 Pulse 84 MON; Pulse Ox 90% ; ja5 08:57 Weight 81.65 kg / 180.01 lbs; Height 5 ft. 9 in. (175.26 cm); ja5 09:20 Pulse 80 MON; Pulse Ox 99% ; ja5 09:21 BP 159 / 81 (auto/); ja5 09:50 Pulse 80 MON; Pulse Ox 95% ; ja5 09:51 BP 156 / 86 (auto/); ja5 10:20 Pulse 82 MON; Pulse Ox 99% ; ja5 10:21 BP 168 / 90 (auto/); ja5 11:01 BP 204 / 95 (auto/); ja5 11:03 BP 177 / 93 (auto/); ja5 11:03 Pulse 100 MON; Pulse Ox 90% ; ja5 11:04 Pulse 96 MON; Pulse Ox 94% ; ja5 11:07 Pulse 92 MON; Pulse Ox 98% ; ja5 11:08 BP 151 / 85 (auto/); ja5 11:20 Pulse 88 MON; Pulse Ox 98% ; ja5 11:21 BP 153 / 88 (auto/); ja5 12:15 Pulse 80 MON; Pulse Ox 96% ; ja5 12:16 BP 158 / 91 (auto/); ja5 13:26 BP 186 / 91; Pulse 87; Resp 17; Temp 97.3; Pulse Ox 97% on 2 lpm NC; mb9 08:57 Body Mass Index 26.58 (81.65 kg, 175.26 cm) MDM: 08:21 Broker Associate/Pulse Ox/q 15 min VS ordered. fg 08:21 IV Saline Lock ordered. fg 08:21 Oxygen at 4L/Min NC or Home dosage ordered. fg 08:21 Rhythm Strip to chart ordered. fg 08:23 B-Type Natiuretic Peptide Ordered. EDMS 08:23 Basic Metabolic Profile Ordered. EDMS 08:23 CBC with Diff Ordered. EDMS 08:23 Troponin Ordered. EDMS 08:23 -Blood Culture Ordered. EDMS 08:23 Chest, 1 View Ordered. EDMS 08:24 ECG WITH READING ER PHYS+CARDIAG ordered. EDMS 08:44 Call Respiratory ordered. fg 08:46 -Arterial Blood Gas Ordered. EDMS 08:57 Call Respiratory complete. kr3 09:27 Financial registration complete. lg 09:28 [facility] Payment Agreement was scanned into [employer] and attached to record. lg 10:28 [facility] [place]. Nursing Order ordered. fg 11:15 Solu-MEDROL 125 mg IVP once ordered. fg 11:19 CT Chest Angio R/O PE Ordered. EDMS 11:30 THEOPHYLLINE LEVEL Ordered. EDMS Administered Medications: 11:26 Drug: Solu-MEDROL 125 mg [Solu-Medrol 500 mg intravenous solution (125 mg)] Route: IVP; ja5 Site: left antecubital; Signatures: Dispatcher [employer] EDMS Sneha Khanna, Ag Reg lg Priscilla RichardsRN RN kr3 Aleks Desai RN RN mb9 Bibi Quiñonez MD MD Janette SteveRN RN ja5 The chart was reviewed and I authenticate all verbal orders and agree with the evaluation and treatment provided.Corrections: (The following items were deleted from the chart) 11:30 11:27 THEOPHYLLINE LEVEL+LAB ordered. EDMS EDMS Attachments: : [facility] Payment Agreement lg MTDD
--- NOTE | 2016-07-14 13:30 | EDDOCDS ---
Nurse's Notes [facility] Name: Feliciano Flores Age: 76 yrs Sex: Male : 1940 Arrival Date: 07/14/2016 Time: 08:15 Bed 9 Private MD: Feliciano Arroyo DO Diagnosis: Shortness of breath Presentation: 07/14 08:17 Presenting complaint: EMS states: Pt woke woke up 0730 with difficulty breathing, ja5 lethargy, unable to focus. Lungs clear, no edema, labored breathing, 100% on 15L. On O2 at home, uses albuterol inhaler. LAC 18g, blood sugar 186. Pt states that he feels like has been coughing and has been fighting a possible cold. Adult Sepsis Screening:. 08:17 Acuity: ELLY Level 2 ja5 08:22 Adult Sepsis Screening: The patient does not have new or worsening altered mentation. ja5 Patient has a respiratory rate of greater than or equal to 22 (1 point). Systolic blood pressure is greater than 100. Patient has a qSOFA score of 1- Negative Sepsis Screen. Suicide/Homicide risk assessment- the patient denies having any suicidal and/or homicidal ideations and does not present with any other emotional, behavioral or mental health complaints. Status: Patient is not a conference service coordinator or dependent. Transition of care: patient was not received from another setting of care. 08:22 Method Of Arrival: Ambulance ja5 Triage Assessment: 08:33 General: Appears uncomfortable, Behavior is cooperative, drowsy. Pain: Location: chest 5 Pain currently is 4 out of 10 on a pain scale. Neurological: Level of Consciousness is awake, lethargic, Oriented to person, place, time. Cardiovascular: Capillary refill < 3 seconds Rhythm is sinus rhythm. Respiratory: Onset: The symptoms/episode began/occurred today, Airway is patent Respiratory effort is even, unlabored, Respiratory pattern is regular, symmetrical, Breath sounds are diminished bilaterally. Derm: Skin is healthy with good turgor. Historical: - Allergies: no known allergies; - Home Meds: 1. albuterol sulfate 2.5 mg /3 mL (0.083 %) Inhl nebu daily PRN for Chronic Obstructive Pulmonary Disease (Last dose: 07/13/2016 20:00) 2. aspirin 81 mg Oral chew 1 tab once daily (Last dose: 07/13/2016 08:00) 3. atorvastatin 40 mg oral tab 1 tab once daily for Hypercholesterolemia (Last dose: 07/13/2016 08:00) 4. Brovana 15 mcg/2 mL inhalation nebu 2 mL 2 times per day for Bronchospasm Prevention with COPD (Last dose: 07/13/2016 20:00) 5. carvedilol 12.5 mg oral tab 1 tab every 12 hours for Hypertension (Last dose: 07/13/2016 20:00) 6. lisinopril 30 mg Oral tab 1 tab once daily (Last dose: 07/13/2016 20:00) 7. mirtazapine 30 mg Oral tab 1 tab once daily for Depression (Last dose: 07/13/2016 20:00) 8. Spiriva with HandiHaler 18 mcg Inhl CpDv 1 cap once daily (Last dose: 07/13/2016 08:00) 9. Oxygen 3L NC daily 2 LPM continuous (Last dose: 07/13/2016 20:00) 10. theophylline 300 mg Oral tab 1 tab every 12 hours (Last dose: 07/13/2016 20:00) 11. venlafaxine 150 mg oral cp24 1 cap twice a day for Anxiety with Depression (Last dose: 07/13/2016 20:00) 12. Florajen oral daily (Last dose: 07/13/2016 08:00) 13. Vitamin D Oral 2000 unit daily (Last dose: 07/13/2016 08:00) 14. magnesium oxide 400 mg Oral cap daily (Last dose: 07/13/2016 08:00) 15. amlodipine 5 mg Oral tab 1 tab once daily for Hypertension (Last dose: 07/13/2016 08:00) - PMHx: Aortic Aneurysm; arteriosclerotic heart disease; cellulitis; COPD; Diverticulitis; enlarged prostate; Hiatal Hernia; Hypercholesterolemia; Hypertension; Osteoarthritis; Pneumonia; PVD; traumatic subarachnoid hemorrhage; Depression; - PSHx: Hernia repair; Carpal Tunnel Repair- Left; Bone Grafting; Cholecystectomy; Cataract Surgery- Bilateral; endovascular AAA repair; L popliteal artery bypass; - Social history: Smoking status: Patient states former smoker of tobacco. No barriers to communication noted, The patient speaks fluent Tajik. - Family history: No immediate family members are acutely ill. - : The pt / caregiver states he / she is not on anticoagulants. Home medication list is obtained from patients' pharmacy. - Exposure Risk Screening:: None identified. Screenin:53 Screening information is obtained from the patient. Fall risk: At risk due to prior ja5 history of falls. Assistance ADL's: Requires assistance with dressing, assistance is provided by family members, housework, assistance is provided by family members, medication administration, assistance is provided by family members. Abuse/DV Screen: The patient / caregiver reports he/she is: not in a situation that causes fear, pain or injury. Nutritional screening: On no prescribed diet. Advance Directives: Currently, there is a health care proxy, Piedad Flores, . There is no active DNR order. There is no living will. There is no Power of Refrigerator Room Clerk. home support is adequate. Assessment: 08:51 General: Appears in no apparent distress, Behavior is agitated, cooperative. Pain: ja5 Location: mid-sternal area Pain currently is 4 out of 10 on a pain scale. Neurological: Level of Consciousness is awake, alert, Oriented to person, place, time. Cardiovascular: Capillary refill < 3 seconds Heart tones S1 S2 present Rhythm is sinus rhythm No ectopy. Respiratory: Airway is patent Respiratory effort is even, unlabored, Respiratory pattern is Breath sounds are diminished bilaterally. Derm: Skin is intact, Skin is pink, warm & dry. 09:29 General: Patient resting on stretcher with eyes closed, alert upon arousal, denies SOB, ja5 states chest pain is still present but is decreasing. Patient thirsty, Dr. Quiñonez gave ok for some ice chips. at bedside, call church in reach. . 10:34 General: patient sleeping soundly in stretcher, lights dim, at bedside. No ja5 increased work of breathing noted, on 3L O2 NC with O2 sat 100%. . 11:11 General: Patient up to ambulate. Attempted to stand without O2 because patient stated ja5 he does not always use O2 at home. O2 sat dropped to 88% so O2 was placed. Upon amkbulation, O2 sats maintained from 94-99% while on 3L O2 NC. Patient had to take many breaks, stated he was short of breath. Upon returning to bed BP was elevated to 204/95. Provider aware of these results.. 12:16 General: Patient resting in stretcher, denies shortness of breath and difficulty ja5 breathing, respirations are even and unlabored. Side rails up, call church in reach, no needs at this time.. 13:26 General: Appears in no apparent distress, Behavior is cooperative. Respiratory: Airway mb9 is patent Respiratory effort is even, unlabored. Vital Signs: 08:21 BP 140 / 70 (auto/); ja5 08:23 Pulse 86 MON; Pulse Ox 99% ; ja5 08:40 BP 140 / 70; Pulse 85; Resp 24; Temp 98.5; Pulse Ox 91% on NC; Pain 4/10; ja5 08:51 BP 141 / 68 (auto/); ja5 08:51 Pulse 84 MON; Pulse Ox 90% ; ja5 08:57 Weight 81.65 kg; Height 5 ft. 9 in. (175.26 cm); ja5 09:20 Pulse 80 MON; Pulse Ox 99% ; ja5 09:21 BP 159 / 81 (auto/); ja5 09:50 Pulse 80 MON; Pulse Ox 95% ; ja5 09:51 BP 156 / 86 (auto/); ja5 10:20 Pulse 82 MON; Pulse Ox 99% ; ja5 10:21 BP 168 / 90 (auto/); ja5 11:01 BP 204 / 95 (auto/); ja5 11:03 BP 177 / 93 (auto/); ja5 11:03 Pulse 100 MON; Pulse Ox 90% ; ja5 11:04 Pulse 96 MON; Pulse Ox 94% ; ja5 11:07 Pulse 92 MON; Pulse Ox 98% ; ja5 11:08 BP 151 / 85 (auto/); ja5 11:20 Pulse 88 MON; Pulse Ox 98% ; ja5 11:21 BP 153 / 88 (auto/); ja5 12:15 Pulse 80 MON; Pulse Ox 96% ; ja5 12:16 BP 158 / 91 (auto/); ja5 13:26 BP 186 / 91; Pulse 87; Resp 17; Temp 97.3; Pulse Ox 97% on 2 lpm NC; mb9 08:57 Body Mass Index 26.58 (81.65 kg, 175.26 cm) damon Vitals: 08:39 Log In Time: July 14, 2016 at 08:17. evelio ED Course: 08:16 Patient visited by Maki Calderon, Packaging Sales. lbd 08:16 Patient moved to Waiting lbd 08:17 Feliciano Arroyo is Private Physician. lbd 08:17 Priscilla Richards,RN is Primary Nurse. lbd 08:17 Janette Steve,RN is Primary Nurse. lbd 08:17 Patient moved to 9 lbd 08:20 Bibi Quiñonez MD is Attending Physician. fg 08:20 Patient visited by Bibi Quiñonez MD. fg 08:22 Triage Initiated ja5 08:36 monitor and storage bin tender on. Pulse ox on. NIBP on. lr2 08:36 EKG done. (by ED staff). Reviewed by Bibi Quiñonez MD. lr2 08:37 Patient visited by Annalisa Ward. lr2 08:42 B-Type Natiuretic Peptide Sent. kr3 08:42 Basic Metabolic Profile Sent. kr3 08:42 CBC with Diff Sent. kr3 08:42 Troponin Sent. kr3 08:42 -Blood Culture Sent. kr3 08:42 Maintain field IV. Dressing intact. Good blood return noted. Site clean & dry. Gauge & kr3 site: #18 left AC. 09:15 -Arterial Blood Gas Sent. js11 09:27 Patient name changed from Feliciano\S\Neel\S\Mark\S\ to Feliciano\S\E\S\Mark. EDMS 09:28 [facility] Payment Agreement was scanned into [employer] and attached to record. lg 09:30 Chest, 1 View Returned. EDMS 09:31 Patient visited by Janette Steve RN. ja5 10:35 Patient visited by Janette Steve RN. ja5 11:26 Patient visited by Janette Steve RN. ja5 12:18 Patient visited by Janette Steve RN. ja5 12:34 CT Chest Angio R/O PE Returned. EDMS 13:08 Feliciano Arroyo is Referral Physician. fg 13:08 Albaro Wilson MD is Referral Physician. fg 13:26 The patient / caregiver is instructed regarding the plan of care and ED course. mb9 13:26 Discontinued IV lock intact, bleeding controlled, pressure dressing applied, No mb9 redness/swelling at site. No procedures done that require assistance. Administered Medications: 11:26 Drug: Solu-MEDROL 125 mg [Solu-Medrol 500 mg intravenous solution (125 mg)] Route: IVP; ja5 Site: left antecubital; RT: 09:15 ABG's drawn from left radial artery allens test done and positive pressure held for 5 js11 minutes no bleeding noted specimen sent pt. tolerated well. Order Results: Lab Order: B-Type Natiuretic Peptide; SPEC' 07/14/16 08:40 Test: BRAIN NATRIURETIC PEPTIDE; Value: 57.3; Range: <100; Units: PG/ML; Status: F Lab Order: Basic Metabolic Profile; [facility]' 07/14/16 08:40 Test: GLUCOSE, FASTING; Value: 118; Range: 83-110; Abnormal: Above high normal; Units: MG/DL; Status: F Test: BLOOD UREA NITROGEN; Value: 20; Range: 7-18; Abnormal: Above high normal; Units: MG/DL; Status: F Test: CREATININE FOR GFR; Value: 1.37; Range: 0.70-1.30; Abnormal: Above high normal; Units: MG/DL; Status: F Test: GLOMERULAR FILTRATION RATE; Value: 53.8; Range: >42; Status: F Test: SODIUM LEVEL; Value: 144; Range: 136-145; Units: MEQ/L; Status: F Test: POTASSIUM SERUM; Value: 3.9; Range: 3.5-5.1; Units: MEQ/L; Status: F Test: CHLORIDE LEVEL; Value: 106; Range: 98-107; Units: MEQ/L; Status: F Test: CARBON DIOXIDE LEVEL; Value: 28; Range: 21-32; Units: MEQ/L; Status: F Test: ANION GAP; Value: 10; Range: 8-16; Units: MEQ/L; Status: F Test: CALCIUM LEVEL; Value: 9.3; Range: 8.8-10.2; Units: MG/DL; Status: F Test Note: ; Units are mL/min/1.73 m2 Chronic Kidney Disease Staging per NKF: Stage I & II GFR >=60 Normal to Mildly Decreased Stage III GFR 30-59 Moderately Decreased Stage IV GFR 15-29 Severely Decreased Stage V GFR <15 Very Little GFR Left ESRD GFR <15 on SUPERVISOR DRYING Lab Order: CBC with Diff; SPEC' 07/14/16 08:40 Test: WHITE BLOOD COUNT; Value: 14.5; Range: 4.0-10.0; Abnormal: Above high normal; Units: K/mm3; Status: F Test: RED BLOOD COUNT; Value: 3.78; Range: 4.30-6.10; Abnormal: Below low normal; Units: M/mm3; Status: F Test: HEMOGLOBIN; Value: 12.0; Range: 14.0-18.0; Abnormal: Below low normal; Units: g/dl; Status: F Test: HEMATOCRIT; Value: 35.5; Range: 42.0-52.0; Abnormal: Below low normal; Units: %; Status: F Test: MEAN CORPUSCULAR VOLUME; Value: 93.8; Range: 80.0-96.0; Units: fl; Status: F Test: MEAN CORPUSCULAR HEMOGLOBIN; Value: 31.7; Range: 27.0-33.0; Units: pg; Status: F Test: MEAN CORPUSCULAR HGB CONC; Value: 33.8; Range: 32.0-36.5; Units: g/dl; Status: F Test: RED CELL DISTRIBUTION WIDTH; Value: 13.5; Range: 11.5-14.5; Units: %; Status: F Test: PLATELET COUNT, AUTOMATED; Value: 162; Range: 150-450; Units: k/mm3; Status: F Test: NEUTROPHILS %; Value: 80.0; Range: 36.0-66.0; Abnormal: Above high normal; Units: %; Status: F Test: LYMPH %; Value: 13.1; Range: 24.0-44.0; Abnormal: Below low normal; Units: %; Status: F Test: MONO %; Value: 3.7; Range: 0.0-5.0; Units: %; Status: F Test: EOS %; Value: 1.9; Range: 0.0-3.0; Units: %; Status: F Test: BASO %; Value: 0.4; Range: 0.0-1.0; Units: %; Status: F Test: LARGE UNSTAINED CELL %; Value: 0.9; Range: 0.0-4.0; Units: %; Status: F Test: NEUTROPHILS #; Value: 11.6; Range: 1.8-7.7; Abnormal: Above high normal; Units: K/mm3; Status: F Test: LYMPH #; Value: 2.0; Range: 1.5-4.5; Units: K/mm3; Status: F Test: MONO #; Value: 0.5; Range: 0.0-0.8; Units: K/mm3; Status: F Test: EOS #; Value: 0.3; Range: 0.0-0.50; Units: K/mm3; Status: F Test: BASO #; Value: 0.1; Range: 0.0-0.2; Units: K/mm3; Status: F Test: LARGE UNSTAINED CELL #; Value: 0.1; Range: 0.0-0.4; Units: K/mm3; Status: F Lab Order: Troponin; SPEC'M 07/14/16 08:40 Test: TROPONIN I; Value: 0.03; Range: < 0.10; Units: NG/ML; Status: F Test Note: ; Troponin I Reference Interval for [place] LOCI: 99th Percentile= 0.00-0.045 ng/ml Risk Stratification: <= 0.10 ng/ml Decreased Risk for Adverse Clinical Events. 0.10-1.50 ng/ml Increased Risk for Adverse Clinical Events. Evaluation of additional criterion and/or repeat testing in 2-6 hours is suggested to rule out myocardial damage. >= 1.50 ng/ml Indicative of Myocardial Injury. Lab Order: -Arterial Blood Gas; SPEC07/14/16 09:08 Test: ABG pH (ARTERIAL); Value: 7.399; Range: 7.350-7.450; Units: UNITS; Status: F Test: ABG PARTIAL PRESSURE CO2; Value: 40.9; Range: 35.0-45.0; Units: mmHg; Status: F Test: ABG PARTIAL PRESSURE O2; Value: 95.5; Range: 75.0-100.0; Units: mmHg; Status: F Test: ABG TOTAL CO2; Value: 26.0; Range: 23.0-31.0; Units: MEQ/L; Status: F Test: ABG HCO3; Value: 24.7; Range: 22.0-26.0; Units: MEQ/L; Status: F Test: ABG BASE EXCESS; Value: -0.1; Range: -2.0-2.0; Status: F Test: ABG STANDARD HCO3; Value: 24.4; Range: 22.0-26.0; Units: MEQ/L; Status: F Test: ABG O2 SATURATION; Value: 97.2; Range: 95.0-99.0; Units: %; Status: F Test: ABG DEVICE; Value: NASAL RED; Status: F Lab Order: THEOPHYLLINE LEVEL; SPEC'M 07/14/16 08:40 Test: THEOPHYLLINE LEVEL; Value: 12.3; Range: 10.0-20.0; Units: UG/ML; Status: F Radiology Order: Chest, 1 View Test: Chest, 1 View REASON FOR EXAMINATION: Cough; Portable chest, 08:53 a.m. , single AP view, the patient semi upright:; ; Comparison is 06/29/2016.; ; The lung lyons are clear. The cardiac size is normal; ; The lamin, mediastinum, and bony thorax are unremarkable.; ; Impression:; ; Negative portable chest. There is no interval change.; ; ; Signed by; Gallito Duvall MD 07/14/2016 09:13 A; Radiology Order: CT Chest Angio R/O PE Test: CT Chest Angio R/O PE REASON FOR EXAMINATION: Shortness of Breath; CT pulmonary angiogram: With IV contrast.; ; History: Cough. Shortness of breath.; ; Comparison studies: Comparison is made with today's chest x-ray. No comparison; chest CT.; ; Contrast dose: 75 cc's of Isovue 370 are administered intravenously.; ; CT technique: Helical scanning is acquired and overlapping 1.5 mm and contiguous; 3 mm axial images are reformatted. In addition, a 3-D work station is deployed; to generate thick slab maximum intensity projection images in sagittal and; coronal imaging projections.; ; CT pulmonary angiographic findings: There is good opacification of the pulmonary; arterial tree. There is no CT evidence of pulmonary embolism. The thoracic; aorta enhances homogeneously and shows vascular calcification but no evidence of; aneurysm or dissection. Maximum intensity projection images show no evidence of; vessel cutoff or filling defect to suggest pulmonary arterial thrombus. There is; no evidence of pleural or pericardial effusion. There are three small somewhat; spiculated opacities adjacent to one another in the right upper lobe. There is; some interstitial streaking surrounding these. This is nonspecific. This could; be early neoplasia or a subtle inflammatory infiltrate. The nodular components; measure 6, 6, and 7 mm respectively. No other significant pulmonary; opacification is seen. There is a granulomatous lymph node calcification in the; right paratracheal region. The visualized upper abdominal structures are; remarkable only for clips in the gallbladder fossa. No adrenal lesion is seen.; ; Impression:; ; 1. No CT evidence of pulmonary embolus.; ; 2. There is a cluster of three somewhat spiculated appearing nodular opacities; in the right upper lobe as described above. These are indeterminate. Follow-up; CT scan is indicated in 3-4 months.; ; ; Signed by; Chris Bernstein MD 07/14/2016 12:53 P; Outcome: 11:51 CT Study completed. kr3 13:09 Discharge ordered by Provider. fg 13:26 Discharge Assessment: patient administered narcotics - no. The following High Risk mb9 Discharge criteria are identified: None. Discharged to home ambulatory, via wheelchair. Condition: good Condition: stable Condition: improved. Discharge instructions given to patient, Instructed on discharge instructions, follow up and referral plans. medication usage, Demonstrated understanding of instructions, Pt was receptive of discharge instructions/ teaching. Property :Personal belongings accompany Pt. 13:29 Patient left the ED. mb9 Signatures: Dispatcher [employer] EDMS Maki Calderon, Packaging Sales Unit lbd Sneha Khanna, Reg Reg lg Priscilla Richards,RN RN [email or web address] Sandoval Novak js11 Aleks Desai RN RN mb9 Bibi Quiñonez MD MD fg Anderson, JessicaRN RN [email or web address] Annalisa Ward lr2 Corrections: (The following items were deleted from the chart) 08:40 08:33 Respiratory: Onset: The symptoms/episode began/occurred today, Airway is patent ja5 Respiratory effort is even, unlabored, Respiratory pattern is regular, symmetrical, Breath sounds are clear bilaterally. ja5 08:57 08:40 BP 140 / 70; Pulse 85bpm; Resp 24bpm; Pulse Ox 91% RA; Temp 98.5F; Pain 4/10; ja5 ja5 09:45 08:17 Presenting complaint: EMS states: Pt woke woke up 0730 with difficulty breathing, ja5 lethargy, unable to focus. Lungs clear, no edema, labored breathing, 100% on 15L. On O2 at home, uses albuterol inhaler. LAC 18g, FSBS 186. Pt states that he feels like has been coughing and has been fighting a possible cold. ja5 MTDD
--- NOTE | 2016-07-14 21:26 | ECGEPIP ---
Stationary ECG Study [facility] - ED Test Date: 2016-07-14 Pat Name: LEAH PRO Department: Room: - Gender: M Motel Operator: : 1940 Requested By: MOHINDER Rogers Order Number: [id number] Reading MD: Sylvia Post Measurements Intervals [place] Rate: 89 P: 92 ID: [id number] QRS: 60 QRSD: 98 T: 122 QT: 367 QTc: 447 Interpretive Statements SINUS RHYTHM NONSPECIFIC ST & T-WAVE ABNORMALITY INCREASED RATE 06/29/16 Electronically Signed On 07-14-2016 21:26:24 EST by Sylvia Post
--- NOTE | 2016-07-16 14:30 | EDDOCDS ---
Nurse's Notes [facility] Name: Leah Pro Age: 76 yrs Sex: Male : 1940 Arrival Date: 07/14/2016 Time: 08:15 Bed 9 Private MD: Leah Arroyo DO Diagnosis: Shortness of breath Presentation: 07/14 08:17 Presenting complaint: EMS states: Pt woke woke up 0730 with difficulty breathing, ja5 lethargy, unable to focus. Lungs clear, no edema, labored breathing, 100% on 15L. On O2 at home, uses albuterol inhaler. LAC 18g, blood sugar 186. Pt states that he feels like has been coughing and has been fighting a possible cold. Adult Sepsis Screening:. 08:17 Acuity: ELLY Level 2 ja5 08:22 Adult Sepsis Screening: The patient does not have new or worsening altered mentation. ja5 Patient has a respiratory rate of greater than or equal to 22 (1 point). Systolic blood pressure is greater than 100. Patient has a qSOFA score of 1- Negative Sepsis Screen. Suicide/Homicide risk assessment- the patient denies having any suicidal and/or homicidal ideations and does not present with any other emotional, behavioral or mental health complaints. Status: Patient is not a real estate services coordinator or dependent. Transition of care: patient was not received from another setting of care. 08:22 Method Of Arrival: Ambulance ja5 Triage Assessment: 08:33 General: Appears uncomfortable, Behavior is cooperative, drowsy. Pain: Location: chest 5 Pain currently is 4 out of 10 on a pain scale. Neurological: Level of Consciousness is awake, lethargic, Oriented to person, place, time. Cardiovascular: Capillary refill < 3 seconds Rhythm is sinus rhythm. Respiratory: Onset: The symptoms/episode began/occurred today, Airway is patent Respiratory effort is even, unlabored, Respiratory pattern is regular, symmetrical, Breath sounds are diminished bilaterally. Derm: Skin is healthy with good turgor. Historical: - Allergies: no known allergies; - Home Meds: 1. albuterol sulfate 2.5 mg /3 mL (0.083 %) Inhl nebu daily PRN for Chronic Obstructive Pulmonary Disease (Last dose: 07/13/2016 20:00) 2. aspirin 81 mg Oral chew 1 tab once daily (Last dose: 07/13/2016 08:00) 3. atorvastatin 40 mg oral tab 1 tab once daily for Hypercholesterolemia (Last dose: 07/13/2016 08:00) 4. Brovana 15 mcg/2 mL inhalation nebu 2 mL 2 times per day for Bronchospasm Prevention with COPD (Last dose: 07/13/2016 20:00) 5. carvedilol 12.5 mg oral tab 1 tab every 12 hours for Hypertension (Last dose: 07/13/2016 20:00) 6. lisinopril 30 mg Oral tab 1 tab once daily (Last dose: 07/13/2016 20:00) 7. mirtazapine 30 mg Oral tab 1 tab once daily for Depression (Last dose: 07/13/2016 20:00) 8. Spiriva with HandiHaler 18 mcg Inhl CpDv 1 cap once daily (Last dose: 07/13/2016 08:00) 9. Oxygen 3L NC daily 2 LPM continuous (Last dose: 07/13/2016 20:00) 10. theophylline 300 mg Oral tab 1 tab every 12 hours (Last dose: 07/13/2016 20:00) 11. venlafaxine 150 mg oral cp24 1 cap twice a day for Anxiety with Depression (Last dose: 07/13/2016 20:00) 12. Florajen oral daily (Last dose: 07/13/2016 08:00) 13. Vitamin D Oral 2000 unit daily (Last dose: 07/13/2016 08:00) 14. magnesium oxide 400 mg Oral cap daily (Last dose: 07/13/2016 08:00) 15. amlodipine 5 mg Oral tab 1 tab once daily for Hypertension (Last dose: 07/13/2016 08:00) - PMHx: Aortic Aneurysm; arteriosclerotic heart disease; cellulitis; COPD; Diverticulitis; enlarged prostate; Hiatal Hernia; Hypercholesterolemia; Hypertension; Osteoarthritis; Pneumonia; PVD; traumatic subarachnoid hemorrhage; Depression; - PSHx: Hernia repair; Carpal Tunnel Repair- Left; Bone Grafting; Cholecystectomy; Cataract Surgery- Bilateral; endovascular AAA repair; L popliteal artery bypass; - Social history: Smoking status: Patient states former smoker of tobacco. No barriers to communication noted, The patient speaks fluent Yoruba. - Family history: No immediate family members are acutely ill. - : The pt / caregiver states he / she is not on anticoagulants. Home medication list is obtained from patients' pharmacy. - Exposure Risk Screening:: None identified. Screenin:53 Screening information is obtained from the patient. Fall risk: At risk due to prior ja5 history of falls. Assistance ADL's: Requires assistance with dressing, assistance is provided by family members, housework, assistance is provided by family members, medication administration, assistance is provided by family members. Abuse/DV Screen: The patient / caregiver reports he/she is: not in a situation that causes fear, pain or injury. Nutritional screening: On no prescribed diet. Advance Directives: Currently, there is a health care proxy, Piedad Pro, . There is no active DNR order. There is no living will. There is no Power of Aerographer. home support is adequate. Assessment: 08:51 General: Appears in no apparent distress, Behavior is agitated, cooperative. Pain: ja5 Location: mid-sternal area Pain currently is 4 out of 10 on a pain scale. Neurological: Level of Consciousness is awake, alert, Oriented to person, place, time. Cardiovascular: Capillary refill < 3 seconds Heart tones S1 S2 present Rhythm is sinus rhythm No ectopy. Respiratory: Airway is patent Respiratory effort is even, unlabored, Respiratory pattern is Breath sounds are diminished bilaterally. Derm: Skin is intact, Skin is pink, warm & dry. 09:29 General: Patient resting on stretcher with eyes closed, alert upon arousal, denies SOB, ja5 states chest pain is still present but is decreasing. Patient thirsty, Dr. Quiñonez gave ok for some ice chips. at bedside, call church in reach. . 10:34 General: patient sleeping soundly in stretcher, lights dim, at bedside. No ja5 increased work of breathing noted, on 3L O2 NC with O2 sat 100%. . 11:11 General: Patient up to ambulate. Attempted to stand without O2 because patient stated ja5 he does not always use O2 at home. O2 sat dropped to 88% so O2 was placed. Upon amkbulation, O2 sats maintained from 94-99% while on 3L O2 NC. Patient had to take many breaks, stated he was short of breath. Upon returning to bed BP was elevated to 204/95. Provider aware of these results.. 12:16 General: Patient resting in stretcher, denies shortness of breath and difficulty ja5 breathing, respirations are even and unlabored. Side rails up, call church in reach, no needs at this time.. 13:26 General: Appears in no apparent distress, Behavior is cooperative. Respiratory: Airway mb9 is patent Respiratory effort is even, unlabored. Vital Signs: 08:21 BP 140 / 70 (auto/); ja5 08:23 Pulse 86 MON; Pulse Ox 99% ; ja5 08:40 BP 140 / 70; Pulse 85; Resp 24; Temp 98.5; Pulse Ox 91% on NC; Pain 4/10; ja5 08:51 BP 141 / 68 (auto/); ja5 08:51 Pulse 84 MON; Pulse Ox 90% ; ja5 08:57 Weight 81.65 kg; Height 5 ft. 9 in. (175.26 cm); ja5 09:20 Pulse 80 MON; Pulse Ox 99% ; ja5 09:21 BP 159 / 81 (auto/); ja5 09:50 Pulse 80 MON; Pulse Ox 95% ; ja5 09:51 BP 156 / 86 (auto/); ja5 10:20 Pulse 82 MON; Pulse Ox 99% ; ja5 10:21 BP 168 / 90 (auto/); ja5 11:01 BP 204 / 95 (auto/); ja5 11:03 BP 177 / 93 (auto/); ja5 11:03 Pulse 100 MON; Pulse Ox 90% ; ja5 11:04 Pulse 96 MON; Pulse Ox 94% ; ja5 11:07 Pulse 92 MON; Pulse Ox 98% ; ja5 11:08 BP 151 / 85 (auto/); ja5 11:20 Pulse 88 MON; Pulse Ox 98% ; ja5 11:21 BP 153 / 88 (auto/); ja5 12:15 Pulse 80 MON; Pulse Ox 96% ; ja5 12:16 BP 158 / 91 (auto/); ja5 13:26 BP 186 / 91; Pulse 87; Resp 17; Temp 97.3; Pulse Ox 97% on 2 lpm NC; mb9 08:57 Body Mass Index 26.58 (81.65 kg, 175.26 cm) damon Vitals: 08:39 Log In Time: July 14, 2016 at 08:17. evelio ED Course: 08:16 Patient visited by Maki Calderon, Hydraulic Rock Drill Operator. lbd 08:16 Patient moved to Waiting lbd 08:17 Leah Arroyo is Private Physician. lbd 08:17 Priscilla Richards,RN is Primary Nurse. lbd 08:17 Janette Steve,RN is Primary Nurse. lbd 08:17 Patient moved to 9 lbd 08:20 Bibi Quiñonez MD is Attending Physician. fg 08:20 Patient visited by Bibi Quiñonez MD. fg 08:22 Triage Initiated ja5 08:36 garbage man on. Pulse ox on. NIBP on. lr2 08:36 EKG done. (by ED staff). Reviewed by Bibi Quiñonez MD. lr2 08:37 Patient visited by Annalisa Ward. lr2 08:42 B-Type Natiuretic Peptide Sent. kr3 08:42 Basic Metabolic Profile Sent. kr3 08:42 CBC with Diff Sent. kr3 08:42 Troponin Sent. kr3 08:42 -Blood Culture Sent. kr3 08:42 Maintain field IV. Dressing intact. Good blood return noted. Site clean & dry. Gauge & kr3 site: #18 left AC. 09:15 -Arterial Blood Gas Sent. js11 09:27 Patient name changed from Leah\S\Neel\S\Mark\S\ to Leah\S\E\S\Mark. EDMS 09:28 [facility] Payment Agreement was scanned into 3225 films and attached to record. lg 09:30 Chest, 1 View Returned. EDMS 09:31 Patient visited by Janette Steve RN. ja5 10:35 Patient visited by Janette Steve RN. ja5 11:26 Patient visited by Janette Steve RN. ja5 12:18 Patient visited by Janette Steve RN. ja5 12:34 CT Chest Angio R/O PE Returned. EDMS 13:08 Leah Arroyo is Referral Physician. fg 13:08 Albaro Wilson MD is Referral Physician. fg 13:26 The patient / caregiver is instructed regarding the plan of care and ED course. mb9 13:26 Discontinued IV lock intact, bleeding controlled, pressure dressing applied, No mb9 redness/swelling at site. No procedures done that require assistance. 15:10 T-Sheet-- Draft Copy was scanned into 3225 films and attached to record. gb 15:11 ECG/EKG was scanned into [employer] and attached to record. gb 15:11 Trend VS was scanned into [employer] and attached to record. gb 15:11 Rhythm Strip was scanned into [employer] and attached to record. gb 15:12 PCR was scanned into [employer] and attached to record. gb 22:16 EKG-ADULT Returned. EDMS Administered Medications: 11:26 Drug: Solu-MEDROL 125 mg [Solu-Medrol 500 mg intravenous solution (125 mg)] Route: IVP; ja5 Site: left antecubital; Attachments: 15:11 Trend VS gb 15:11 Rhythm Strip gb RT: 09:15 ABG's drawn from left radial artery allens test done and positive pressure held for 5 js11 minutes no bleeding noted specimen sent pt. tolerated well. Order Results: Lab Order: -Blood Culture; SPEC'M 07/14/16 08:40 Test: BLOOD CULTURE; Value: No growth after 24 hours . All specimens observed; Status: F Test: BLOOD CULTURE; Value: for 5 days. Results final at that time.; Status: F Test: BLOOD CULTURE; Value: No Growth after 48 hours. All Specimens observed; Status: F Test: BLOOD CULTURE; Value: for 7 days. Results final at that time.; Status: F Lab Order: B-Type Natiuretic Peptide; SPEC' 07/14/16 08:40 Test: BRAIN NATRIURETIC PEPTIDE; Value: 57.3; Range: <100; Units: PG/ML; Status: F Lab Order: Basic Metabolic Profile; SPEC' 07/14/16 08:40 Test: GLUCOSE, FASTING; Value: 118; Range: 83-110; Abnormal: Above high normal; Units: MG/DL; Status: F Test: BLOOD UREA NITROGEN; Value: 20; Range: 7-18; Abnormal: Above high normal; Units: MG/DL; Status: F Test: CREATININE FOR GFR; Value: 1.37; Range: 0.70-1.30; Abnormal: Above high normal; Units: MG/DL; Status: F Test: GLOMERULAR FILTRATION RATE; Value: 53.8; Range: >42; Status: F Test: SODIUM LEVEL; Value: 144; Range: 136-145; Units: MEQ/L; Status: F Test: POTASSIUM SERUM; Value: 3.9; Range: 3.5-5.1; Units: MEQ/L; Status: F Test: CHLORIDE LEVEL; Value: 106; Range: 98-107; Units: MEQ/L; Status: F Test: CARBON DIOXIDE LEVEL; Value: 28; Range: 21-32; Units: MEQ/L; Status: F Test: ANION GAP; Value: 10; Range: 8-16; Units: MEQ/L; Status: F Test: CALCIUM LEVEL; Value: 9.3; Range: 8.8-10.2; Units: MG/DL; Status: F Test Note: ; Units are mL/min/1.73 m2 Chronic Kidney Disease Staging per NKF: Stage I & II GFR >=60 Normal to Mildly Decreased Stage III GFR 30-59 Moderately Decreased Stage IV GFR 15-29 Severely Decreased Stage V GFR <15 Very Little GFR Left ESRD GFR <15 on POLICE LIAISON Lab Order: CBC with Diff; SPEC'M 07/14/16 08:40 Test: WHITE BLOOD COUNT; Value: 14.5; Range: 4.0-10.0; Abnormal: Above high normal; Units: K/mm3; Status: F Test: RED BLOOD COUNT; Value: 3.78; Range: 4.30-6.10; Abnormal: Below low normal; Units: M/mm3; Status: F Test: HEMOGLOBIN; Value: 12.0; Range: 14.0-18.0; Abnormal: Below low normal; Units: g/dl; Status: F Test: HEMATOCRIT; Value: 35.5; Range: 42.0-52.0; Abnormal: Below low normal; Units: %; Status: F Test: MEAN CORPUSCULAR VOLUME; Value: 93.8; Range: 80.0-96.0; Units: fl; Status: F Test: MEAN CORPUSCULAR HEMOGLOBIN; Value: 31.7; Range: 27.0-33.0; Units: pg; Status: F Test: MEAN CORPUSCULAR HGB CONC; Value: 33.8; Range: 32.0-36.5; Units: g/dl; Status: F Test: RED CELL DISTRIBUTION WIDTH; Value: 13.5; Range: 11.5-14.5; Units: %; Status: F Test: PLATELET COUNT, AUTOMATED; Value: 162; Range: 150-450; Units: k/mm3; Status: F Test: NEUTROPHILS %; Value: 80.0; Range: 36.0-66.0; Abnormal: Above high normal; Units: %; Status: F Test: LYMPH %; Value: 13.1; Range: 24.0-44.0; Abnormal: Below low normal; Units: %; Status: F Test: MONO %; Value: 3.7; Range: 0.0-5.0; Units: %; Status: F Test: EOS %; Value: 1.9; Range: 0.0-3.0; Units: %; Status: F Test: BASO %; Value: 0.4; Range: 0.0-1.0; Units: %; Status: F Test: LARGE UNSTAINED CELL %; Value: 0.9; Range: 0.0-4.0; Units: %; Status: F Test: NEUTROPHILS #; Value: 11.6; Range: 1.8-7.7; Abnormal: Above high normal; Units: K/mm3; Status: F Test: LYMPH #; Value: 2.0; Range: 1.5-4.5; Units: K/mm3; Status: F Test: MONO #; Value: 0.5; Range: 0.0-0.8; Units: K/mm3; Status: F Test: EOS #; Value: 0.3; Range: 0.0-0.50; Units: K/mm3; Status: F Test: BASO #; Value: 0.1; Range: 0.0-0.2; Units: K/mm3; Status: F Test: LARGE UNSTAINED CELL #; Value: 0.1; Range: 0.0-0.4; Units: K/mm3; Status: F Lab Order: Troponin; SPEC'M 07/14/16 08:40 Test: TROPONIN I; Value: 0.03; Range: < 0.10; Units: NG/ML; Status: F Test Note: ; Troponin I Reference Interval for XSI Semi Conductors LOCI: 99th Percentile= 0.00-0.045 ng/ml Risk Stratification: <= 0.10 ng/ml Decreased Risk for Adverse Clinical Events. 0.10-1.50 ng/ml Increased Risk for Adverse Clinical Events. Evaluation of additional criterion and/or repeat testing in 2-6 hours is suggested to rule out myocardial damage. >= 1.50 ng/ml Indicative of Myocardial Injury. Lab Order: -Arterial Blood Gas; SPEC'M 07/14/16 09:08 Test: ABG pH (ARTERIAL); Value: 7.399; Range: 7.350-7.450; Units: UNITS; Status: F Test: ABG PARTIAL PRESSURE CO2; Value: 40.9; Range: 35.0-45.0; Units: mmHg; Status: F Test: ABG PARTIAL PRESSURE O2; Value: 95.5; Range: 75.0-100.0; Units: mmHg; Status: F Test: ABG TOTAL CO2; Value: 26.0; Range: 23.0-31.0; Units: MEQ/L; Status: F Test: ABG HCO3; Value: 24.7; Range: 22.0-26.0; Units: MEQ/L; Status: F Test: ABG BASE EXCESS; Value: -0.1; Range: -2.0-2.0; Status: F Test: ABG STANDARD HCO3; Value: 24.4; Range: 22.0-26.0; Units: MEQ/L; Status: F Test: ABG O2 SATURATION; Value: 97.2; Range: 95.0-99.0; Units: %; Status: F Test: ABG DEVICE; Value: NASAL RED; Status: F Lab Order: THEOPHYLLINE LEVEL; SPEC'M 07/14/16 08:40 Test: THEOPHYLLINE LEVEL; Value: 12.3; Range: 10.0-20.0; Units: UG/ML; Status: F Radiology Order: Chest, 1 View Test: Chest, 1 View REASON FOR EXAMINATION: Cough; Portable chest, 08:53 a.m. , single AP view, the patient semi upright:; ; Comparison is 06/29/2016.; ; The lung lyons are clear. The cardiac size is normal; ; The lamin, mediastinum, and bony thorax are unremarkable.; ; Impression:; ; Negative portable chest. There is no interval change.; ; ; Signed by; Gallito Duvall MD 07/14/2016 09:13 A; Radiology Order: EKG-ADULT Test: EKG-ADULT REASON FOR EXAMINATION: Chest Pain; Stationary ECG Study; [facility] - ED; ; Test Date: 2016-07-14; Pat Name: LEAH PRO Department:; Room: -; Gender: M Assistant Cook: lr; : 1940 Requested By: BIBI Rogers; Order Number: [id number] Reading MD: Sylvia Post; Measurements; Intervals [place]; Rate: 89 P: 92; [place]: 132 QRS: 60; QRSD: 98 T: 122; QT: 367; QTc: 447; Interpretive Statements; SINUS RHYTHM; NONSPECIFIC ST T-WAVE ABNORMALITY; INCREASED RATE 06/29/16; Electronically Signed On 07-14-2016 21:26:24 EST by Sylvia Post; Radiology Order: CT Chest Angio R/O PE Test: CT Chest Angio R/O PE REASON FOR EXAMINATION: Shortness of Breath; CT pulmonary angiogram: With IV contrast.; ; History: Cough. Shortness of breath.; ; Comparison studies: Comparison is made with today's chest x-ray. No comparison; chest CT.; ; Contrast dose: 75 cc's of Isovue 370 are administered intravenously.; ; CT technique: Helical scanning is acquired and overlapping 1.5 mm and contiguous; 3 mm axial images are reformatted. In addition, a 3-D work station is deployed; to generate thick slab maximum intensity projection images in sagittal and; coronal imaging projections.; ; CT pulmonary angiographic findings: There is good opacification of the pulmonary; arterial tree. There is no CT evidence of pulmonary embolism. The thoracic; aorta enhances homogeneously and shows vascular calcification but no evidence of; aneurysm or dissection. Maximum intensity projection images show no evidence of; vessel cutoff or filling defect to suggest pulmonary arterial thrombus. There is; no evidence of pleural or pericardial effusion. There are three small somewhat; spiculated opacities adjacent to one another in the right upper lobe. There is; some interstitial streaking surrounding these. This is nonspecific. This could; be early neoplasia or a subtle inflammatory infiltrate. The nodular components; measure 6, 6, and 7 mm respectively. No other significant pulmonary; opacification is seen. There is a granulomatous lymph node calcification in the; right paratracheal region. The visualized upper abdominal structures are; remarkable only for clips in the gallbladder fossa. No adrenal lesion is seen.; ; Impression:; ; 1. No CT evidence of pulmonary embolus.; ; 2. There is a cluster of three somewhat spiculated appearing nodular opacities; in the right upper lobe as described above. These are indeterminate. Follow-up; CT scan is indicated in 3-4 months.; ; ; Signed by; Chris Bernstein MD 07/14/2016 12:53 P; Outcome: 11:51 CT Study completed. kr3 13:09 Discharge ordered by Provider. fg 13:26 Discharge Assessment: patient administered narcotics - no. The following High Risk mb9 Discharge criteria are identified: None. Discharged to home ambulatory, via wheelchair. Condition: good Condition: stable Condition: improved. Discharge instructions given to patient, Instructed on discharge instructions, follow up and referral plans. medication usage, Demonstrated understanding of instructions, Pt was receptive of discharge instructions/ teaching. Property :Personal belongings accompany Pt. 13:29 Patient left the ED. mb9 Signatures: Dispatcher [employer] EDMS Maki Calderon, Hydraulic Rock Drill Operator Unit lbd Kirstin Scott, Reg Reg gb Sneha Khanna, Reg Reg lg Priscilla Richards,RN RN kr3 Sandoval Novak js11 Aleks Desai,RN RN mb9 Bibi Quiñonez MD MD fg Janette SteveRN RN [email or web address] Annalisa Ward lr2 Corrections: (The following items were deleted from the chart) 08:40 08:33 Respiratory: Onset: The symptoms/episode began/occurred today, Airway is patent ja5 Respiratory effort is even, unlabored, Respiratory pattern is regular, symmetrical, Breath sounds are clear bilaterally. ja5 08:57 08:40 BP 140 / 70; Pulse 85bpm; Resp 24bpm; Pulse Ox 91% RA; Temp 98.5F; Pain 4/10; ja5 ja5 09:45 08:17 Presenting complaint: EMS states: Pt woke woke up 0730 with difficulty breathing, ja5 lethargy, unable to focus. Lungs clear, no edema, labored breathing, 100% on 15L. On O2 at home, uses albuterol inhaler. LAC 18g, FSBS 186. Pt states that he feels like has been coughing and has been fighting a possible cold. ja5 Chart Complete MTDD
--- NOTE | 2016-07-16 14:30 | EDDOCDS ---
Physician Documentation [facility] Name: Feliciano Flores Age: 76 yrs Sex: Male : 1940 Arrival Date: 07/14/2016 Time: 08:15 Bed 9 Private MD: Feliciano Arroyo, DO Disposition: 07/14/16 13:09 Discharged to Home/Self Care. Impression: Shortness of breath. - Condition is Stable. - Discharge Instructions: Shortness of Breath, [id number]. - Medication Reconciliation, Local Pharmacy Hours form. - Follow up: Feliciano Arroyo; When: Call to arrange an appointment; Reason: Continuance of care. Follow up: Albaro Wilson MD; When: Call to arrange an appointment; Reason: Continuance of care. - Problem is new. - Symptoms have improved. Historical: - Allergies: no known allergies; - Home Meds: 1. albuterol sulfate 2.5 mg /3 mL (0.083 %) Inhl nebu daily PRN for Chronic Obstructive Pulmonary Disease (Last dose: 07/13/2016 20:00) 2. aspirin 81 mg Oral chew 1 tab once daily (Last dose: 07/13/2016 08:00) 3. atorvastatin 40 mg oral tab 1 tab once daily for Hypercholesterolemia (Last dose: 07/13/2016 08:00) 4. Brovana 15 mcg/2 mL inhalation nebu 2 mL 2 times per day for Bronchospasm Prevention with COPD (Last dose: 07/13/2016 20:00) 5. carvedilol 12.5 mg oral tab 1 tab every 12 hours for Hypertension (Last dose: 07/13/2016 20:00) 6. lisinopril 30 mg Oral tab 1 tab once daily (Last dose: 07/13/2016 20:00) 7. mirtazapine 30 mg Oral tab 1 tab once daily for Depression (Last dose: 07/13/2016 20:00) 8. Spiriva with HandiHaler 18 mcg Inhl CpDv 1 cap once daily (Last dose: 07/13/2016 08:00) 9. Oxygen 3L NC daily 2 LPM continuous (Last dose: 07/13/2016 20:00) 10. theophylline 300 mg Oral tab 1 tab every 12 hours (Last dose: 07/13/2016 20:00) 11. venlafaxine 150 mg oral cp24 1 cap twice a day for Anxiety with Depression (Last dose: 07/13/2016 20:00) 12. Florajen oral daily (Last dose: 07/13/2016 08:00) 13. Vitamin D Oral 2000 unit daily (Last dose: 07/13/2016 08:00) 14. magnesium oxide 400 mg Oral cap daily (Last dose: 07/13/2016 08:00) 15. amlodipine 5 mg Oral tab 1 tab once daily for Hypertension (Last dose: 07/13/2016 08:00) - PMHx: Aortic Aneurysm; arteriosclerotic heart disease; cellulitis; COPD; Diverticulitis; enlarged prostate; Hiatal Hernia; Hypercholesterolemia; Hypertension; Osteoarthritis; Pneumonia; PVD; traumatic subarachnoid hemorrhage; Depression; - PSHx: Hernia repair; Carpal Tunnel Repair- Left; Bone Grafting; Cholecystectomy; Cataract Surgery- Bilateral; endovascular AAA repair; L popliteal artery bypass; - Social history: Smoking status: Patient states former smoker of tobacco. No barriers to communication noted, The patient speaks fluent Martiniquais. - Family history: No immediate family members are acutely ill. - : The pt / caregiver states he / she is not on anticoagulants. Home medication list is obtained from patients' pharmacy. - Exposure Risk Screening:: None identified. Vital Signs: 07/14 08:21 BP 140 / 70 (auto/); 5 08:23 Pulse 86 MON; Pulse Ox 99% ; ja5 08:40 BP 140 / 70; Pulse 85; Resp 24; Temp 98.5; Pulse Ox 91% on NC; Pain 4/10; ja5 08:51 BP 141 / 68 (auto/); ja5 08:51 Pulse 84 MON; Pulse Ox 90% ; ja5 08:57 Weight 81.65 kg / 180.01 lbs; Height 5 ft. 9 in. (175.26 cm); ja5 09:20 Pulse 80 MON; Pulse Ox 99% ; ja5 09:21 BP 159 / 81 (auto/); ja5 09:50 Pulse 80 MON; Pulse Ox 95% ; ja5 09:51 BP 156 / 86 (auto/); ja5 10:20 Pulse 82 MON; Pulse Ox 99% ; ja5 10:21 BP 168 / 90 (auto/); ja5 11:01 BP 204 / 95 (auto/); ja5 11:03 BP 177 / 93 (auto/); ja5 11:03 Pulse 100 MON; Pulse Ox 90% ; ja5 11:04 Pulse 96 MON; Pulse Ox 94% ; ja5 11:07 Pulse 92 MON; Pulse Ox 98% ; ja5 11:08 BP 151 / 85 (auto/); ja5 11:20 Pulse 88 MON; Pulse Ox 98% ; ja5 11:21 BP 153 / 88 (auto/); ja5 12:15 Pulse 80 MON; Pulse Ox 96% ; ja5 12:16 BP 158 / 91 (auto/); ja5 13:26 BP 186 / 91; Pulse 87; Resp 17; Temp 97.3; Pulse Ox 97% on 2 lpm NC; mb9 08:57 Body Mass Index 26.58 (81.65 kg, 175.26 cm) [facility] MDM: 08:21 Emergency Medcl Emt/Pulse Ox/q 15 min VS ordered. fg 08:21 IV Saline Lock ordered. fg 08:21 Oxygen at 4L/Min NC or Home dosage ordered. fg 08:21 Rhythm Strip to chart ordered. fg 08:23 B-Type Natiuretic Peptide Ordered. EDMS 08:23 Basic Metabolic Profile Ordered. EDMS 08:23 CBC with Diff Ordered. EDMS 08:23 Troponin Ordered. EDMS 08:23 -Blood Culture Ordered. EDMS 08:23 Chest, 1 View Ordered. EDMS 08:24 ECG WITH READING ER PHYS+CARDIAG ordered. EDMS 08:44 Call Respiratory ordered. fg 08:46 -Arterial Blood Gas Ordered. EDMS 08:57 Call Respiratory complete. kr3 09:27 Financial registration complete. lg 09:28 [facility] Payment Agreement was scanned into [employer] and attached to record. lg 10:28 [facility] [place] ordered. fg 11:15 Solu-MEDROL 125 mg IVP once ordered. fg 11:19 CT Chest Angio R/O PE Ordered. EDMS 11:30 THEOPHYLLINE LEVEL Ordered. EDMS 15:10 T-Sheet-- Draft Copy was scanned into [employer] and attached to record. gb 15:11 ECG/EKG was scanned into [employer] and attached to record. gb 15:11 Trend VS was scanned into [employer] and attached to record. gb 15:11 Rhythm Strip was scanned into [employer] and attached to record. gb 15:12 PCR was scanned into [employer] and attached to record. gb Administered Medications: 11:26 Drug: Solu-MEDROL 125 mg [Solu-Medrol 500 mg intravenous solution (125 mg)] Route: IVP; ja5 Site: left antecubital; Signatures: Dispatcher [employer] EDMS Kirstin Scott, Reg Reg gb Sneha Khanna, Reg Reg lg Priscilla Richards,RN RN kr3 Aleks DesaiRN RN mb9 Bibi Quiñonez MD MD fg Anderson, JessicaRN RN ja5 The chart was reviewed and I authenticate all verbal orders and agree with the evaluation and treatment provided.Corrections: (The following items were deleted from the chart) 11:30 11:27 THEOPHYLLINE LEVEL+LAB ordered. EDMS EDMS Attachments: 09:28 [facility] [place] lg 15:10 T-Sheet-- Draft Copy gb 15:11 ECG/EKG gb Chart Complete MTDD
--- NOTE | 2016-07-16 14:30 | EDDOCDS ---
Physician Documentation [facility] Name: Feliciano Flores Age: 76 yrs Sex: Male : 1940 Arrival Date: 07/14/2016 Time: 08:15 Bed 9 Private MD: Feliciano Arroyo, DO Disposition: 07/14/16 13:09 Discharged to Home/Self Care. Impression: Shortness of breath. - Condition is Stable. - Discharge Instructions: Shortness of Breath, [id number]. - Medication Reconciliation, Local Pharmacy Hours form. - Follow up: Feliciano Arroyo; When: Call to arrange an appointment; Reason: Continuance of care. Follow up: Albaro Wilson MD; When: Call to arrange an appointment; Reason: Continuance of care. - Problem is new. - Symptoms have improved. Historical: - Allergies: no known allergies; - Home Meds: 1. albuterol sulfate 2.5 mg /3 mL (0.083 %) Inhl nebu daily PRN for Chronic Obstructive Pulmonary Disease (Last dose: 07/13/2016 20:00) 2. aspirin 81 mg Oral chew 1 tab once daily (Last dose: 07/13/2016 08:00) 3. atorvastatin 40 mg oral tab 1 tab once daily for Hypercholesterolemia (Last dose: 07/13/2016 08:00) 4. Brovana 15 mcg/2 mL inhalation nebu 2 mL 2 times per day for Bronchospasm Prevention with COPD (Last dose: 07/13/2016 20:00) 5. carvedilol 12.5 mg oral tab 1 tab every 12 hours for Hypertension (Last dose: 07/13/2016 20:00) 6. lisinopril 30 mg Oral tab 1 tab once daily (Last dose: 07/13/2016 20:00) 7. mirtazapine 30 mg Oral tab 1 tab once daily for Depression (Last dose: 07/13/2016 20:00) 8. Spiriva with HandiHaler 18 mcg Inhl CpDv 1 cap once daily (Last dose: 07/13/2016 08:00) 9. Oxygen 3L NC daily 2 LPM continuous (Last dose: 07/13/2016 20:00) 10. theophylline 300 mg Oral tab 1 tab every 12 hours (Last dose: 07/13/2016 20:00) 11. venlafaxine 150 mg oral cp24 1 cap twice a day for Anxiety with Depression (Last dose: 07/13/2016 20:00) 12. Florajen oral daily (Last dose: 07/13/2016 08:00) 13. Vitamin D Oral 2000 unit daily (Last dose: 07/13/2016 08:00) 14. magnesium oxide 400 mg Oral cap daily (Last dose: 07/13/2016 08:00) 15. amlodipine 5 mg Oral tab 1 tab once daily for Hypertension (Last dose: 07/13/2016 08:00) - PMHx: Aortic Aneurysm; arteriosclerotic heart disease; cellulitis; COPD; Diverticulitis; enlarged prostate; Hiatal Hernia; Hypercholesterolemia; Hypertension; Osteoarthritis; Pneumonia; PVD; traumatic subarachnoid hemorrhage; Depression; - PSHx: Hernia repair; Carpal Tunnel Repair- Left; Bone Grafting; Cholecystectomy; Cataract Surgery- Bilateral; endovascular AAA repair; L popliteal artery bypass; - Social history: Smoking status: Patient states former smoker of tobacco. No barriers to communication noted, The patient speaks fluent Georgian. - Family history: No immediate family members are acutely ill. - : The pt / caregiver states he / she is not on anticoagulants. Home medication list is obtained from patients' pharmacy. - Exposure Risk Screening:: None identified. Vital Signs: 07/14 08:21 BP 140 / 70 (auto/); 5 08:23 Pulse 86 MON; Pulse Ox 99% ; ja5 08:40 BP 140 / 70; Pulse 85; Resp 24; Temp 98.5; Pulse Ox 91% on NC; Pain 4/10; ja5 08:51 BP 141 / 68 (auto/); ja5 08:51 Pulse 84 MON; Pulse Ox 90% ; ja5 08:57 Weight 81.65 kg / 180.01 lbs; Height 5 ft. 9 in. (175.26 cm); ja5 09:20 Pulse 80 MON; Pulse Ox 99% ; ja5 09:21 BP 159 / 81 (auto/); ja5 09:50 Pulse 80 MON; Pulse Ox 95% ; ja5 09:51 BP 156 / 86 (auto/); ja5 10:20 Pulse 82 MON; Pulse Ox 99% ; ja5 10:21 BP 168 / 90 (auto/); ja5 11:01 BP 204 / 95 (auto/); ja5 11:03 BP 177 / 93 (auto/); ja5 11:03 Pulse 100 MON; Pulse Ox 90% ; ja5 11:04 Pulse 96 MON; Pulse Ox 94% ; ja5 11:07 Pulse 92 MON; Pulse Ox 98% ; ja5 11:08 BP 151 / 85 (auto/); ja5 11:20 Pulse 88 MON; Pulse Ox 98% ; ja5 11:21 BP 153 / 88 (auto/); ja5 12:15 Pulse 80 MON; Pulse Ox 96% ; ja5 12:16 BP 158 / 91 (auto/); ja5 13:26 BP 186 / 91; Pulse 87; Resp 17; Temp 97.3; Pulse Ox 97% on 2 lpm NC; mb9 08:57 Body Mass Index 26.58 (81.65 kg, 175.26 cm) [facility] MDM: 08:21 Simulation Engineer/Pulse Ox/q 15 min VS ordered. fg 08:21 IV Saline Lock ordered. fg 08:21 Oxygen at 4L/Min NC or Home dosage ordered. fg 08:21 Rhythm Strip to chart ordered. fg 08:23 B-Type Natiuretic Peptide Ordered. EDMS 08:23 Basic Metabolic Profile Ordered. EDMS 08:23 CBC with Diff Ordered. EDMS 08:23 Troponin Ordered. EDMS 08:23 -Blood Culture Ordered. EDMS 08:23 Chest, 1 View Ordered. EDMS 08:24 ECG WITH READING ER PHYS+CARDIAG ordered. EDMS 08:44 Call Respiratory ordered. fg 08:46 -Arterial Blood Gas Ordered. EDMS 08:57 Call Respiratory complete. kr3 09:27 Financial registration complete. lg 09:28 [facility] Payment Agreement was scanned into [employer] and attached to record. lg 10:28 [facility] [place]. Nursing Order ordered. fg 11:15 Solu-MEDROL 125 mg IVP once ordered. fg 11:19 CT Chest Angio R/O PE Ordered. EDMS 11:30 THEOPHYLLINE LEVEL Ordered. EDMS 15:10 T-Sheet-- Draft Copy was scanned into [employer] and attached to record. gb 15:11 ECG/EKG was scanned into [employer] and attached to record. gb 15:11 Trend VS was scanned into [employer] and attached to record. gb 15:11 Rhythm Strip was scanned into [employer] and attached to record. gb 15:12 PCR was scanned into [employer] and attached to record. gb Administered Medications: 11:26 Drug: Solu-MEDROL 125 mg [Solu-Medrol 500 mg intravenous solution (125 mg)] Route: IVP; ja5 Site: left antecubital; Signatures: Dispatcher [employer] EDMS Kirstin Scott, Reg Reg gb Sneha Khanna, Reg Reg lg Priscilla Richards,RN RN kr3 Aleks DesaiRN RN mb9 Bibi Quiñonez MD MD fg Anderson, JessicaRN RN ja5 The chart was reviewed and I authenticate all verbal orders and agree with the evaluation and treatment provided.Corrections: (The following items were deleted from the chart) 11:30 11:27 THEOPHYLLINE LEVEL+LAB ordered. EDMS EDMS Attachments: 09:28 [facility] [place] lg 15:10 T-Sheet-- Draft Copy gb 15:11 ECG/EKG gb Chart Complete MTDD
== END 2016-07-14 13:29 | disposition home or self-care (01) ==
LOC: M ED 08:15
DX: R06.02 Shortness of breath (principal); J44.9 Chronic obstructive pulmonary disease, unspecified; I25.10 Atherosclerotic heart disease of native coronary artery without angina pectoris; K57.92 Diverticulitis of intestine, part unspecified, without perforation or abscess without bleeding; N40.0 Benign prostatic hyperplasia without lower urinary tract symptoms; K44.9 Diaphragmatic hernia without obstruction or gangrene; E78.00 Pure hypercholesterolemia, unspecified; I10 Essential (primary) hypertension; M19.90 Unspecified osteoarthritis, unspecified site; F32.9 Major depressive disorder, single episode, unspecified; I73.9 Peripheral vascular disease, unspecified; Z87.891 Personal history of nicotine dependence; Z92.240 Personal history of inhaled steroid therapy; Z99.81 Dependence on supplemental oxygen; Z79.82 Long term (current) use of aspirin; Z79.899 Other long term (current) drug therapy
CPT/HCPCS: 36600; 71010; 71275; 80048; 80198; 82803; 83880; 84484; 85025; 87040; 93005; 93041; 96374; 99285; J2930; Q9967

== ENCOUNTER → 2016-12-08 | Outpatient (CLI) | payer MEDICARE ==
[~2016-12-08] MED LIST changes: -ATOR40TA PO; +ATOR40TA75 PO; +KEFL500C17 PO; -KEFL500C7 PO; +LEVO750T13 PO; -LEVO750T33 PO; +METO25TA4 PO; -PRED10TA PO; -PROA1AER INH; +PROAAER10 INH; +THEO1TAB4 PO
--- NOTE | 2016-12-08 11:11 | REP ---
Clinical: COPD. Comparison: 07/14/2016. Findings: Moderate COPD and emphysematous changes are appreciated along with associated mild/moderate bronchiectasis. No consolidation, nodule, or mass lesion. Previously identified nodular densities in the right upper lobe have resolved. No pleural effusion/reaction or pneumothorax. No obvious adenopathy. Atherosclerotic changes to the thoracic aorta and coronary arteries noted without cardiomegaly or aortic aneurysm. Surrounding musculoskeletal structures without focal osseous abnormality. Impression: Moderate COPD and emphysematous changes. No acute mediastinal or pleuroparenchymal process. Signed by Bird Sanchez MD 12/08/2016 11:02 A
== END ==
LOC: M RAD 09:16
PROVIDERS: ATTEND Internal Medicine Pulmonary Disease
DX: J44.9 Chronic obstructive pulmonary disease, unspecified (principal)

== ENCOUNTER → 2017-03-06 | Outpatient (REF) | payer MEDICARE | LOC: M LAB REF 16:41 | PROVIDERS: ATTEND Nurse Practitioner Adult Health | DX: J44.9 Chronic obstructive pulmonary disease, unspecified (principal) ==

== ENCOUNTER → 2017-05-30 | Outpatient (CLI) | payer MEDICARE ==
[2017-05-30 11:42] LABS: ANION GAP 4 MEQ/L (8-16); BLOOD UREA NITROGEN 20 MG/DL (7-18); CALCIUM LEVEL 8.9 MG/DL (8.8-10.2); CARBON DIOXIDE LEVEL 34 MEQ/L (21-32); CHLORIDE LEVEL 106 MEQ/L (98-107); CREATININE FOR GFR 1.34 MG/DL (0.70-1.30); GLUCOSE, FASTING 82 MG/DL (83-110); POTASSIUM SERUM 3.5 MEQ/L (3.5-5.1); SODIUM LEVEL 144 MEQ/L (136-145)
== END ==
LOC: M LAB 10:16
DX: I10 Essential (primary) hypertension (principal); E78.5 Hyperlipidemia, unspecified; I73.9 Peripheral vascular disease, unspecified; I25.10 Atherosclerotic heart disease of native coronary artery without angina pectoris; J44.9 Chronic obstructive pulmonary disease, unspecified
CPT/HCPCS: 80048

== ENCOUNTER → 2017-07-17 | Outpatient (REF) | payer MEDICARE ==
[2017-07-17 18:38] LABS: THEOPHYLLINE LEVEL 9.5 UG/ML (10.0-20.0)
== END ==
LOC: M LAB REF 17:28
DX: J96.11 Chronic respiratory failure with hypoxia (principal)
CPT/HCPCS: 80198

== ENCOUNTER 2017-07-26 14:25 | Inpatient (IN) | payer MEDICARE ==
[2017-07-26] MEDS: methylPREDNISolone INJ 125 MG/2 ML VIAL (J2930) IV (15:06)
[2017-07-26] MEDS: IPRATROPIUM 0.5MG/ALBUTEROL 2.5MG INH SOL UD 3ML (DUONEB)(J7620) NEB ×4 (15:38→21:01)
[2017-07-26 15:49] LABS: ABG BASE EXCESS -3.2 (-2.0-2.0); ABG HCO3 19.5 MEQ/L (22.0-26.0); ABG O2 SATURATION 98.8 % (95.0-99.0); ABG PARTIAL PRESSURE CO2 28.6 mmHg (35.0-45.0); ABG STANDARD HCO3 21.9 MEQ/L (22.0-26.0); ABG TOTAL CO2 20.4 MEQ/L (23.0-31.0); ABG pH (ARTERIAL) 7.452 UNITS (7.350-7.450)
[2017-07-26 16:19] LABS: BASO % 0.2 % (0.0-1.0); EOS # 0.1 10^3/uL (0.0-0.50); EOS % 0.3 % (0.0-3.0); HEMATOCRIT 40.4 % (42.0-52.0); HEMOGLOBIN 13.5 g/dl (14.0-18.0); IMMATURE GRANULOCYTE % 0.5 % (0-3.0); LYMPH # 2.7 10^3/uL (1.5-4.5); LYMPH % 15.3 % (24.0-44.0); MEAN CORPUSCULAR HEMOGLOBIN 30.1 pg (27.0-33.0); MEAN CORPUSCULAR HGB CONC 33.4 g/dl (32.0-36.5); MEAN CORPUSCULAR VOLUME 90.2 fl (80.0-96.0); MONO # 1.1 10^3/uL (0.0-0.8); MONO % 6.1 % (0.0-5.0); NEUTROPHILS # 13.5 10^3/uL (1.8-7.7); NEUTROPHILS % 77.6 % (36.0-66.0); PLATELET COUNT, AUTOMATED 160 10^3/uL (150-450); RED BLOOD COUNT 4.48 10^6/uL (4.30-6.10); RED CELL DISTRIBUTION WIDTH 13.4 % (11.5-14.5); WHITE BLOOD COUNT 17.4 10^3/uL (4.0-10.0)
[2017-07-26 16:31] LABS: INR 0.96; PARTIAL THROMBOPLASTIN TIME 21.8 SECONDS (26.8-37.9); PROTHROMBIN TIME 12.9 SECONDS (12.4-14.5)
[2017-07-26 16:38] LABS: ADD MORPHOLOGY? YES; POS COUNT POS FLAG
[2017-07-26 16:45] LABS: PLATELET CLUMPS SMALL AMT; PLATELET ESTIMATE NORMAL (NORMAL)
[2017-07-26 16:48] LABS: ALBUMIN/GLOBULIN RATIO 1.18 (1.00-1.93); ALKALINE PHOSPHATASE 137 U/L (45-117); ALT/SGPT 27 U/L (12-78); ANION GAP 14 MEQ/L (8-16); AST/SGOT 32 U/L (7-37); BILIRUBIN,DIRECT 0.1 MG/DL (0.0-0.2); BILIRUBIN,TOTAL 0.6 MG/DL (0.2-1.0); BLOOD UREA NITROGEN 55 MG/DL (7-18); CALCIUM LEVEL 9.6 MG/DL (8.8-10.2); CARBON DIOXIDE LEVEL 21 MEQ/L (21-32); CHLORIDE LEVEL 103 MEQ/L (98-107); CPK CREATINE PHOSPHOKINASE 164 U/L (39-308); CREATININE FOR GFR 3.25 MG/DL (0.70-1.30); GLOMERULAR FILTRATION RATE 19.8 (>42); GLUCOSE, FASTING 100 MG/DL (70-100); SODIUM LEVEL 138 MEQ/L (136-145); TOTAL PROTEIN 7.4 GM/DL (6.4-8.2); TROPONIN I 0.08 NG/ML (< 0.10)
[2017-07-26 16:54] LABS: CK-MB VALUE MASS 5.5 NG/ML (0.0-3.6); MB/CK RELATIVE INDEX 3.35 (< OR =4); NT-PRO BNP 322 PG/ML (<450)
[2017-07-26 17:57] LABS: THEOPHYLLINE LEVEL 31.7 UG/ML (10.0-20.0)
[2017-07-26] MEDS ORDERED: ACETAMINOPHEN TAB 650MG DOSE (2X325MG) PO (18:15)
[2017-07-26] MEDS ORDERED: IPRATROPIUM 0.5MG/ALBUTEROL 2.5MG INH SOL UD 3ML (DUONEB)(J7620) NEB (18:15)
[2017-07-26] MEDS ORDERED: ONDANSETRON 4MG/2ML VIAL (J2405) IV (18:15)
[2017-07-26] MEDS: NS 1,000 ML IV (19:44)
[2017-07-26] MEDS: predniSONE 5 MG TAB PO (21:21)
[2017-07-26] MEDS: ASPIRIN 81 MG ENTERIC TAB PO (21:21)
[2017-07-26] MEDS: SUCRALFATE 1 GM TAB PO (21:21)
[2017-07-26] MEDS: VITAMIN D 1,000 INTERNATIONAL UNITS TABLET PO (21:22)
[2017-07-26] MEDS: ATORVASTATIN 20 MG TAB PO (21:22)
[2017-07-26] MEDS: HEPARIN SOD (PORCINE) 5000 UNITS/ML VIAL SC (22:32)
[2017-07-27] MEDS: IPRATROPIUM 0.5MG/ALBUTEROL 2.5MG INH SOL UD 3ML (DUONEB)(J7620) NEB ×4 (02:00→19:19)
[2017-07-27] MEDS: HEPARIN SOD (PORCINE) 5000 UNITS/ML VIAL SC ×3 (06:01→20:34)
[2017-07-27 06:31] LABS: HEMATOCRIT 33.3 % (42.0-52.0); MEAN CORPUSCULAR HEMOGLOBIN 30.2 pg (27.0-33.0); MEAN CORPUSCULAR HGB CONC 33.6 g/dl (32.0-36.5); MEAN CORPUSCULAR VOLUME 89.8 fl (80.0-96.0); PLATELET COUNT, AUTOMATED 139 10^3/uL (150-450); RED BLOOD COUNT 3.71 10^6/uL (4.30-6.10); RED CELL DISTRIBUTION WIDTH 13.2 % (11.5-14.5); WHITE BLOOD COUNT 7.5 10^3/uL (4.0-10.0)
[2017-07-27 06:53] LABS: ALBUMIN 3.3 GM/DL (3.2-5.2); ALBUMIN/GLOBULIN RATIO 1.03 (1.00-1.93); ALKALINE PHOSPHATASE 116 U/L (45-117); ALT/SGPT 22 U/L (12-78); ANION GAP 10 MEQ/L (8-16); AST/SGOT 19 U/L (7-37); BILIRUBIN,TOTAL 0.4 MG/DL (0.2-1.0); BLOOD UREA NITROGEN 68 MG/DL (7-18); CARBON DIOXIDE LEVEL 26 MEQ/L (21-32); CHLORIDE LEVEL 101 MEQ/L (98-107); CREATININE FOR GFR 4.41 MG/DL (0.70-1.30); GLOMERULAR FILTRATION RATE 13.9 (>42); GLUCOSE, FASTING 130 MG/DL (70-100); POTASSIUM SERUM 4.8 MEQ/L (3.5-5.1); SODIUM LEVEL 137 MEQ/L (136-145); TOTAL PROTEIN 6.5 GM/DL (6.4-8.2)
[2017-07-27 06:58] LABS: HEMOGLOBIN 11.2 g/dl (14.0-18.0)
[2017-07-27] MEDS: TIOTROPIUM INHALER/CAPSULE (SPIRIVA) INH (07:05)
[2017-07-27] MEDS: SUCRALFATE 1 GM TAB PO ×4 (07:30→20:33)
[2017-07-27 07:37] LABS: CPK CREATINE PHOSPHOKINASE 149 U/L (39-308)
[2017-07-27 07:53] LABS: CK-MB VALUE MASS 4.5 NG/ML (0.0-3.6); MB/CK RELATIVE INDEX 3.02 (< OR =4); TROPONIN I 0.07 NG/ML (< 0.10)
[2017-07-27] MEDS: VENLAFAXINE **XR** 75MG CAPSULE PO (10:37)
[2017-07-27] MEDS: PANTOPRAZOLE 40MG TAB (PROTONIX) PO (10:38)
[2017-07-27] MEDS: NS 1,000 ML IV ×2 (10:40→12:05)
[2017-07-27 14:31] LABS: KETONE, URINE AUTO RFX NEGATIVE (NEGATIVE); LEUKOCYTE ESTERASE UR AUTO RFX NEGATIVE (NEGATIVE); NITRITE, URINE AUTO RFX NEGATIVE (NEGATIVE); RBC, URINE AUTO RFX 0 /HPF (0-3); SPECIFIC GRAVITY UR AUTO RFX 1.012 (1.002-1.035); SQUAM EPITHELIAL CELL UR AURFX 0 /HPF (0-6); WBC, URINE AUTO RFX 2 /HPF (0-3)
[2017-07-27 14:49] LABS: SODIUM,RANDOM URINE 56 MEQ/L
[2017-07-27 15:38] LABS: UREA NITROGEN RANDOM URINE 546 MG/DL
[2017-07-27] MEDS: predniSONE 5 MG TAB PO (20:33)
[2017-07-27] MEDS: ATORVASTATIN 20 MG TAB PO (20:33)
[2017-07-27] MEDS: ASPIRIN 81 MG ENTERIC TAB PO (20:33)
[2017-07-27] MEDS: VITAMIN D 1,000 INTERNATIONAL UNITS TABLET PO (20:33)
[2017-07-27 23:11] LABS: ANION GAP 11 MEQ/L (8-16); BLOOD UREA NITROGEN 75 MG/DL (7-18); CALCIUM LEVEL 8.7 MG/DL (8.8-10.2); CARBON DIOXIDE LEVEL 24 MEQ/L (21-32); CHLORIDE LEVEL 104 MEQ/L (98-107); CK-MB VALUE MASS 4.8 NG/ML (0.0-3.6); CPK CREATINE PHOSPHOKINASE 175 U/L (39-308); CREATININE FOR GFR 4.24 MG/DL (0.70-1.30); GLOMERULAR FILTRATION RATE 14.6 (>42); GLUCOSE, FASTING 124 MG/DL (70-100); MB/CK RELATIVE INDEX 2.74 (< OR =4); POTASSIUM SERUM 4.1 MEQ/L (3.5-5.1); SODIUM LEVEL 139 MEQ/L (136-145); TROPONIN I 0.08 NG/ML (< 0.10)
[2017-07-28] MEDS: NS 1,000 ML IV ×2 (01:28→14:12)
[2017-07-28] MEDS: IPRATROPIUM 0.5MG/ALBUTEROL 2.5MG INH SOL UD 3ML (DUONEB)(J7620) NEB ×4 (02:18→19:52)
[2017-07-28] MEDS: HEPARIN SOD (PORCINE) 5000 UNITS/ML VIAL SC ×3 (05:05→20:14)
[2017-07-28 05:52] LABS: HEMATOCRIT 31.8 % (42.0-52.0); HEMOGLOBIN 10.6 g/dl (14.0-18.0); MEAN CORPUSCULAR HGB CONC 33.3 g/dl (32.0-36.5); MEAN CORPUSCULAR VOLUME 90.1 fl (80.0-96.0); PLATELET COUNT, AUTOMATED 144 10^3/uL (150-450); RED BLOOD COUNT 3.53 10^6/uL (4.30-6.10); RED CELL DISTRIBUTION WIDTH 13.4 % (11.5-14.5); WHITE BLOOD COUNT 10.5 10^3/uL (4.0-10.0)
[2017-07-28 06:25] LABS: CK-MB VALUE MASS 5.3 NG/ML (0.0-3.6); CPK CREATINE PHOSPHOKINASE 173 U/L (39-308); MB/CK RELATIVE INDEX 3.06 (< OR =4); TROPONIN I 0.09 NG/ML (< 0.10)
[2017-07-28 06:26] LABS: ALBUMIN 3.2 GM/DL (3.2-5.2); ALBUMIN/GLOBULIN RATIO 1.19 (1.00-1.93); ALKALINE PHOSPHATASE 118 U/L (45-117); ALT/SGPT 19 U/L (12-78); ANION GAP 12 MEQ/L (8-16); AST/SGOT 21 U/L (7-37); BILIRUBIN,TOTAL 0.3 MG/DL (0.2-1.0); BLOOD UREA NITROGEN 71 MG/DL (7-18); CALCIUM LEVEL 8.8 MG/DL (8.8-10.2); CARBON DIOXIDE LEVEL 24 MEQ/L (21-32); CHLORIDE LEVEL 106 MEQ/L (98-107); CREATININE FOR GFR 3.89 MG/DL (0.70-1.30); FREE T4 0.77 NG/DL (0.76-1.46); GLOMERULAR FILTRATION RATE 16.1 (>42); GLUCOSE, FASTING 87 MG/DL (70-100); MAGNESIUM LEVEL 1.9 MG/DL (1.8-2.4); SODIUM LEVEL 142 MEQ/L (136-145); TOTAL PROTEIN 5.9 GM/DL (6.4-8.2)
[2017-07-28] MEDS: TIOTROPIUM INHALER/CAPSULE (SPIRIVA) INH (07:23)
[2017-07-28] MEDS: SUCRALFATE 1 GM TAB PO ×4 (08:31→20:14)
[2017-07-28] MEDS: VENLAFAXINE **XR** 75MG CAPSULE PO (09:06)
[2017-07-28] MEDS: PANTOPRAZOLE 40MG TAB (PROTONIX) PO (09:07)
[2017-07-28] MEDS: ATORVASTATIN 20 MG TAB PO (20:14)
[2017-07-28] MEDS: predniSONE 5 MG TAB PO (20:14)
[2017-07-28] MEDS: ASPIRIN 81 MG ENTERIC TAB PO (20:14)
[2017-07-28] MEDS: VITAMIN D 1,000 INTERNATIONAL UNITS TABLET PO (20:14)
[2017-07-28] MEDS: MIRTAZAPINE 15 MG TAB PO (21:03)
[2017-07-29] MEDS: IPRATROPIUM 0.5MG/ALBUTEROL 2.5MG INH SOL UD 3ML (DUONEB)(J7620) NEB ×4 (02:00→20:28)
[2017-07-29] MEDS: NS 1,000 ML IV ×2 (02:54→14:10)
[2017-07-29 03:33] LABS: HEMATOCRIT 31.6 % (42.0-52.0); HEMOGLOBIN 10.4 g/dl (14.0-18.0); MEAN CORPUSCULAR HEMOGLOBIN 29.9 pg (27.0-33.0); MEAN CORPUSCULAR HGB CONC 32.9 g/dl (32.0-36.5); MEAN CORPUSCULAR VOLUME 90.8 fl (80.0-96.0); PLATELET COUNT, AUTOMATED 140 10^3/uL (150-450); RED BLOOD COUNT 3.48 10^6/uL (4.30-6.10); RED CELL DISTRIBUTION WIDTH 13.8 % (11.5-14.5); WHITE BLOOD COUNT 7.4 10^3/uL (4.0-10.0)
[2017-07-29 03:55] LABS: ALBUMIN/GLOBULIN RATIO 1.15 (1.00-1.93); ALKALINE PHOSPHATASE 117 U/L (45-117); ALT/SGPT 20 U/L (12-78); ANION GAP 8 MEQ/L (8-16); AST/SGOT 19 U/L (7-37); BILIRUBIN,TOTAL 0.2 MG/DL (0.2-1.0); BLOOD UREA NITROGEN 59 MG/DL (7-18); CALCIUM LEVEL 7.9 MG/DL (8.8-10.2); CARBON DIOXIDE LEVEL 24 MEQ/L (21-32); CHLORIDE LEVEL 112 MEQ/L (98-107); CREATININE FOR GFR 2.73 MG/DL (0.70-1.30); GLOMERULAR FILTRATION RATE 24.2 (>42); GLUCOSE, FASTING 85 MG/DL (70-100); MAGNESIUM LEVEL 1.7 MG/DL (1.8-2.4); POTASSIUM SERUM 4.3 MEQ/L (3.5-5.1); SODIUM LEVEL 144 MEQ/L (136-145); TOTAL PROTEIN 5.6 GM/DL (6.4-8.2)
[2017-07-29] MEDS: HEPARIN SOD (PORCINE) 5000 UNITS/ML VIAL SC ×3 (05:24→21:24)
[2017-07-29] MEDS ORDERED: SUCRALFATE SUSP 1GM/10ML UD As Ordered (06:27)
[2017-07-29] MEDS: TIOTROPIUM INHALER/CAPSULE (SPIRIVA) INH (07:21)
[2017-07-29] MEDS: SUCRALFATE 1 GM TAB PO ×4 (07:52→21:23)
[2017-07-29] MEDS: VENLAFAXINE **XR** 75MG CAPSULE PO (09:40)
[2017-07-29] MEDS: PANTOPRAZOLE 40MG TAB (PROTONIX) PO (09:40)
[2017-07-29] MEDS: ATORVASTATIN 20 MG TAB PO (21:23)
[2017-07-29] MEDS: VITAMIN D 1,000 INTERNATIONAL UNITS TABLET PO (21:23)
[2017-07-29] MEDS: predniSONE 20 MG TAB PO (21:23)
[2017-07-29] MEDS: MIRTAZAPINE 15 MG TAB PO (21:24)
[2017-07-29] MEDS: ASPIRIN 81 MG ENTERIC TAB PO (21:24)
[2017-07-30] MEDS: IPRATROPIUM 0.5MG/ALBUTEROL 2.5MG INH SOL UD 3ML (DUONEB)(J7620) NEB ×4 (02:00→20:35)
[2017-07-30] MEDS: HEPARIN SOD (PORCINE) 5000 UNITS/ML VIAL SC ×3 (06:09→21:07)
[2017-07-30] MEDS: NS 1,000 ML IV ×2 (06:09→21:15)
[2017-07-30 06:59] LABS: HEMATOCRIT 37.7 % (42.0-52.0); MEAN CORPUSCULAR HEMOGLOBIN 30.5 pg (27.0-33.0); MEAN CORPUSCULAR HGB CONC 32.9 g/dl (32.0-36.5); MEAN CORPUSCULAR VOLUME 92.9 fl (80.0-96.0); PLATELET COUNT, AUTOMATED 146 10^3/uL (150-450); RED BLOOD COUNT 4.06 10^6/uL (4.30-6.10); RED CELL DISTRIBUTION WIDTH 13.7 % (11.5-14.5); WHITE BLOOD COUNT 5.8 10^3/uL (4.0-10.0)
[2017-07-30 07:01] LABS: HEMOGLOBIN 12.4 g/dl (14.0-18.0)
[2017-07-30 07:17] LABS: ALBUMIN 3.1 GM/DL (3.2-5.2); ALBUMIN/GLOBULIN RATIO 0.91 (1.00-1.93); ALKALINE PHOSPHATASE 136 U/L (45-117); ALT/SGPT 19 U/L (12-78); ANION GAP 6 MEQ/L (8-16); AST/SGOT 21 U/L (7-37); BILIRUBIN,TOTAL 0.4 MG/DL (0.2-1.0); BLOOD UREA NITROGEN 40 MG/DL (7-18); CALCIUM LEVEL 8.4 MG/DL (8.8-10.2); CARBON DIOXIDE LEVEL 26 MEQ/L (21-32); CHLORIDE LEVEL 110 MEQ/L (98-107); CREATININE FOR GFR 2.24 MG/DL (0.70-1.30); GLOMERULAR FILTRATION RATE 30.4 (>42); GLUCOSE, FASTING 142 MG/DL (70-100); MAGNESIUM LEVEL 1.6 MG/DL (1.8-2.4); SODIUM LEVEL 142 MEQ/L (136-145); TOTAL PROTEIN 6.5 GM/DL (6.4-8.2)
[2017-07-30 07:18] LABS: POTASSIUM SERUM 5.3 MEQ/L (3.5-5.1)
[2017-07-30] MEDS: TIOTROPIUM INHALER/CAPSULE (SPIRIVA) INH (07:55)
[2017-07-30] MEDS: SUCRALFATE 1 GM TAB PO ×4 (08:21→21:07)
[2017-07-30] MEDS: VENLAFAXINE **XR** 75MG CAPSULE PO (08:21)
[2017-07-30] MEDS: PANTOPRAZOLE 40MG TAB (PROTONIX) PO (08:21)
[2017-07-30] MEDS: MAG SULF 1GM/100ML (MAG RUN) 1 GM in APPROPRIATE DILUENT 1 EA IV (10:16)
[2017-07-30] MEDS: DOCUSATE SODIUM 100 MG CAP PO ×2 (12:17→21:08)
[2017-07-30] MEDS: MIRALAX *UNIT DOSE* 17GM PACKET PO (12:17)
[2017-07-30] MEDS: ASPIRIN 81 MG ENTERIC TAB PO (21:07)
[2017-07-30] MEDS: VITAMIN D 1,000 INTERNATIONAL UNITS TABLET PO (21:07)
[2017-07-30] MEDS: predniSONE 20 MG TAB PO (21:08)
[2017-07-30] MEDS: ATORVASTATIN 20 MG TAB PO (21:08)
[2017-07-30] MEDS: MIRTAZAPINE 15 MG TAB PO (21:08)
[2017-07-31] MEDS: IPRATROPIUM 0.5MG/ALBUTEROL 2.5MG INH SOL UD 3ML (DUONEB)(J7620) NEB ×4 (02:27→20:31)
[2017-07-31] MEDS: HEPARIN SOD (PORCINE) 5000 UNITS/ML VIAL SC ×3 (05:18→21:29)
[2017-07-31 06:52] LABS: HEMATOCRIT 34.1 % (42.0-52.0); HEMOGLOBIN 11.4 g/dl (14.0-18.0); MEAN CORPUSCULAR HEMOGLOBIN 30.6 pg (27.0-33.0); MEAN CORPUSCULAR HGB CONC 33.4 g/dl (32.0-36.5); MEAN CORPUSCULAR VOLUME 91.4 fl (80.0-96.0); PLATELET COUNT, AUTOMATED 136 10^3/uL (150-450); RED BLOOD COUNT 3.73 10^6/uL (4.30-6.10); RED CELL DISTRIBUTION WIDTH 13.7 % (11.5-14.5); WHITE BLOOD COUNT 7.4 10^3/uL (4.0-10.0)
[2017-07-31 07:12] LABS: ALBUMIN 3.1 GM/DL (3.2-5.2); ALKALINE PHOSPHATASE 124 U/L (45-117); ALT/SGPT 18 U/L (12-78); ANION GAP 4 MEQ/L (8-16); AST/SGOT 15 U/L (7-37); BILIRUBIN,TOTAL 0.2 MG/DL (0.2-1.0); BLOOD UREA NITROGEN 34 MG/DL (7-18); CALCIUM LEVEL 8.6 MG/DL (8.8-10.2); CARBON DIOXIDE LEVEL 28 MEQ/L (21-32); CHLORIDE LEVEL 111 MEQ/L (98-107); CREATININE FOR GFR 1.79 MG/DL (0.70-1.30); GLOMERULAR FILTRATION RATE 39.4 (>42); GLUCOSE, FASTING 166 MG/DL (70-100); MAGNESIUM LEVEL 1.8 MG/DL (1.8-2.4); SODIUM LEVEL 143 MEQ/L (136-145); TOTAL PROTEIN 6.2 GM/DL (6.4-8.2)
[2017-07-31 07:20] LABS: POTASSIUM SERUM 5.4 MEQ/L (3.5-5.1)
[2017-07-31 08:07] LABS: PSA TOTAL 14.8 ng/mL (0.0-4.0)
[2017-07-31] MEDS: SUCRALFATE 1 GM TAB PO ×4 (08:29→20:46)
[2017-07-31] MEDS: MIRALAX *UNIT DOSE* 17GM PACKET PO (08:30)
[2017-07-31] MEDS: PANTOPRAZOLE 40MG TAB (PROTONIX) PO (08:30)
[2017-07-31] MEDS: VENLAFAXINE **XR** 75MG CAPSULE PO (08:30)
[2017-07-31] MEDS: DOCUSATE SODIUM 100 MG CAP PO ×2 (08:30→20:46)
[2017-07-31] MEDS: TIOTROPIUM INHALER/CAPSULE (SPIRIVA) INH (09:20)
[2017-07-31] MEDS: NS 1,000 ML IV ×2 (10:33→21:30)
[2017-07-31] MEDS: SOD POLYSTYRENE SULFONATE SUSP 15 GM/60 ML UD PO (14:38)
[2017-07-31] MEDS: VITAMIN D 1,000 INTERNATIONAL UNITS TABLET PO (20:46)
[2017-07-31] MEDS: ASPIRIN 81 MG ENTERIC TAB PO (20:46)
[2017-07-31] MEDS: predniSONE 20 MG TAB PO (20:46)
[2017-07-31] MEDS: MIRTAZAPINE 15 MG TAB PO (20:46)
[2017-07-31] MEDS: ATORVASTATIN 20 MG TAB PO (20:46)
[2017-08-01] MEDS: IPRATROPIUM 0.5MG/ALBUTEROL 2.5MG INH SOL UD 3ML (DUONEB)(J7620) NEB ×4 (02:00→20:00)
[2017-08-01] MEDS: HEPARIN SOD (PORCINE) 5000 UNITS/ML VIAL SC ×3 (05:44→21:24)
[2017-08-01] MEDS: TIOTROPIUM INHALER/CAPSULE (SPIRIVA) INH (07:52)
[2017-08-01 07:53] LABS: BEDSIDE GLUCOSE 108 MG/DL (83-110)
[2017-08-01 07:58] LABS: HEMOGLOBIN 12.6 g/dl (14.0-18.0); MEAN CORPUSCULAR HEMOGLOBIN 30.1 pg (27.0-33.0); MEAN CORPUSCULAR HGB CONC 33.2 g/dl (32.0-36.5); MEAN CORPUSCULAR VOLUME 90.9 fl (80.0-96.0); PLATELET COUNT, AUTOMATED 149 10^3/uL (150-450); RED BLOOD COUNT 4.18 10^6/uL (4.30-6.10); RED CELL DISTRIBUTION WIDTH 14.1 % (11.5-14.5); WHITE BLOOD COUNT 8.1 10^3/uL (4.0-10.0)
[2017-08-01] MEDS: LISINOPRIL 20 MG TAB PO (07:59)
[2017-08-01 08:20] LABS: ALBUMIN 3.6 GM/DL (3.2-5.2); ALBUMIN/GLOBULIN RATIO 1.13 (1.00-1.93); ALKALINE PHOSPHATASE 142 U/L (45-117); ALT/SGPT 23 U/L (12-78); ANION GAP 5 MEQ/L (8-16); AST/SGOT 19 U/L (7-37); BILIRUBIN,TOTAL 0.4 MG/DL (0.2-1.0); BLOOD UREA NITROGEN 32 MG/DL (7-18); CALCIUM LEVEL 9.1 MG/DL (8.8-10.2); CARBON DIOXIDE LEVEL 29 MEQ/L (21-32); CHLORIDE LEVEL 107 MEQ/L (98-107); CREATININE FOR GFR 1.69 MG/DL (0.70-1.30); GLOMERULAR FILTRATION RATE 42.1 (>42); GLUCOSE, FASTING 140 MG/DL (70-100); MAGNESIUM LEVEL 1.6 MG/DL (1.8-2.4); SODIUM LEVEL 141 MEQ/L (136-145); TOTAL PROTEIN 6.8 GM/DL (6.4-8.2)
[2017-08-01] MEDS: DOCUSATE SODIUM 100 MG CAP PO (09:31)
[2017-08-01] MEDS: SUCRALFATE 1 GM TAB PO ×4 (09:31→21:24)
[2017-08-01] MEDS: PANTOPRAZOLE 40MG TAB (PROTONIX) PO (09:31)
[2017-08-01] MEDS: VENLAFAXINE **XR** 75MG CAPSULE PO (09:31)
[2017-08-01] MEDS: NS 1,000 ML IV (11:16)
[2017-08-01] MEDS: **hydrALAZINE** 10 MG TAB PO (11:33)
[2017-08-01] MEDS: SOD POLYSTYRENE SULFONATE SUSP 30 GM/120 ML ENEMA PR (11:34)
[2017-08-01] MEDS: MIRALAX *UNIT DOSE* 17GM PACKET PO (13:11)
[2017-08-01] MEDS: SENOKOT S TAB PO (13:11)
[2017-08-01 13:20] LABS: THEOPHYLLINE LEVEL < 2.0 UG/ML (10.0-20.0)
[2017-08-01] MEDS: **hydrALAZINE HCL** 25 MG TAB PO (17:38)
[2017-08-01] MEDS: MIRTAZAPINE 15 MG TAB PO (21:24)
[2017-08-01] MEDS: VITAMIN D 1,000 INTERNATIONAL UNITS TABLET PO (21:24)
[2017-08-01] MEDS: predniSONE 20 MG TAB PO (21:24)
[2017-08-01] MEDS: ASPIRIN 81 MG ENTERIC TAB PO (21:24)
[2017-08-01] MEDS: ATORVASTATIN 20 MG TAB PO (21:24)
[2017-08-02] MEDS: IPRATROPIUM 0.5MG/ALBUTEROL 2.5MG INH SOL UD 3ML (DUONEB)(J7620) NEB ×4 (02:00→19:32)
[2017-08-02] MEDS: **hydrALAZINE HCL** 25 MG TAB PO ×3 (02:23→18:01)
[2017-08-02] MEDS: HEPARIN SOD (PORCINE) 5000 UNITS/ML VIAL SC ×3 (06:05→21:02)
[2017-08-02 07:04] LABS: HEMATOCRIT 35.4 % (42.0-52.0); HEMOGLOBIN 11.8 g/dl (14.0-18.0); MEAN CORPUSCULAR HEMOGLOBIN 30.3 pg (27.0-33.0); MEAN CORPUSCULAR HGB CONC 33.3 g/dl (32.0-36.5); MEAN CORPUSCULAR VOLUME 90.8 fl (80.0-96.0); PLATELET COUNT, AUTOMATED 143 10^3/uL (150-450); WHITE BLOOD COUNT 10.4 10^3/uL (4.0-10.0)
[2017-08-02 07:26] LABS: ALBUMIN 3.2 GM/DL (3.2-5.2); ALKALINE PHOSPHATASE 135 U/L (45-117); ALT/SGPT 24 U/L (12-78); ANION GAP 7 MEQ/L (8-16); AST/SGOT 18 U/L (7-37); BILIRUBIN,TOTAL 0.4 MG/DL (0.2-1.0); BLOOD UREA NITROGEN 43 MG/DL (7-18); CALCIUM LEVEL 8.6 MG/DL (8.8-10.2); CARBON DIOXIDE LEVEL 28 MEQ/L (21-32); CHLORIDE LEVEL 107 MEQ/L (98-107); CREATININE FOR GFR 1.99 MG/DL (0.70-1.30); GLOMERULAR FILTRATION RATE 34.9 (>42); GLUCOSE, FASTING 160 MG/DL (70-100); MAGNESIUM LEVEL 1.7 MG/DL (1.8-2.4); POTASSIUM SERUM 4.4 MEQ/L (3.5-5.1); SODIUM LEVEL 142 MEQ/L (136-145); TOTAL PROTEIN 6.1 GM/DL (6.4-8.2)
[2017-08-02] MEDS: MAG SULF 1GM/100ML (MAG RUN) 1 GM in APPROPRIATE DILUENT 1 EA IV (09:10)
[2017-08-02] MEDS: PANTOPRAZOLE 40MG TAB (PROTONIX) PO (09:11)
[2017-08-02] MEDS: VENLAFAXINE **XR** 75MG CAPSULE PO (09:11)
[2017-08-02] MEDS: SUCRALFATE 1 GM TAB PO ×4 (09:11→21:03)
[2017-08-02] MEDS: TIOTROPIUM INHALER/CAPSULE (SPIRIVA) INH (09:17)
[2017-08-02] MEDS: ASPIRIN 81 MG ENTERIC TAB PO (21:03)
[2017-08-02] MEDS: MIRTAZAPINE 15 MG TAB PO (21:03)
[2017-08-02] MEDS: VITAMIN D 1,000 INTERNATIONAL UNITS TABLET PO (21:03)
[2017-08-02] MEDS: ATORVASTATIN 20 MG TAB PO (21:03)
[2017-08-02] MEDS: predniSONE 20 MG TAB PO (21:03)
[2017-08-02] MEDS: NS 1,000 ML IV (21:03)
[2017-08-03] MEDS: IPRATROPIUM 0.5MG/ALBUTEROL 2.5MG INH SOL UD 3ML (DUONEB)(J7620) NEB ×3 (02:00→14:32)
[2017-08-03] MEDS: **hydrALAZINE HCL** 25 MG TAB PO ×2 (02:06→10:04)
[2017-08-03] MEDS: HEPARIN SOD (PORCINE) 5000 UNITS/ML VIAL SC ×2 (06:16→14:00)
[2017-08-03] MEDS: NS 1,000 ML IV (06:16)
[2017-08-03] MEDS: TIOTROPIUM INHALER/CAPSULE (SPIRIVA) INH (07:54)
[2017-08-03] MEDS: SUCRALFATE 1 GM TAB PO ×2 (08:31→12:41)
[2017-08-03] MEDS: VENLAFAXINE **XR** 75MG CAPSULE PO (08:31)
[2017-08-03] MEDS: PANTOPRAZOLE 40MG TAB (PROTONIX) PO (08:33)
[2017-08-03 08:40] LABS: BASO % 0.1 % (0.0-1.0); EOS % 0.2 % (0.0-3.0); HEMATOCRIT 35.1 % (42.0-52.0); HEMOGLOBIN 11.6 g/dl (14.0-18.0); IMMATURE GRANULOCYTE % 0.8 % (0-3.0); LYMPH # 1.2 10^3/uL (1.5-4.5); LYMPH % 9.1 % (24.0-44.0); MEAN CORPUSCULAR HEMOGLOBIN 29.8 pg (27.0-33.0); MEAN CORPUSCULAR VOLUME 90.2 fl (80.0-96.0); MONO # 0.6 10^3/uL (0.0-0.8); MONO % 4.8 % (0.0-5.0); PLATELET COUNT, AUTOMATED 151 10^3/uL (150-450); RED BLOOD COUNT 3.89 10^6/uL (4.30-6.10); RED CELL DISTRIBUTION WIDTH 14.2 % (11.5-14.5)
[2017-08-03 09:15] LABS: ALBUMIN 3.3 GM/DL (3.2-5.2); ALBUMIN/GLOBULIN RATIO 1.22 (1.00-1.93); ALKALINE PHOSPHATASE 142 U/L (45-117); ALT/SGPT 24 U/L (12-78); ANION GAP 6 MEQ/L (8-16); AST/SGOT 17 U/L (7-37); BILIRUBIN,TOTAL 0.3 MG/DL (0.2-1.0); BLOOD UREA NITROGEN 41 MG/DL (7-18); CALCIUM LEVEL 8.5 MG/DL (8.8-10.2); CARBON DIOXIDE LEVEL 28 MEQ/L (21-32); CHLORIDE LEVEL 108 MEQ/L (98-107); CREATININE FOR GFR 1.66 MG/DL (0.70-1.30); GLUCOSE, FASTING 113 MG/DL (70-100); SODIUM LEVEL 142 MEQ/L (136-145)
== END 2017-08-03 16:13 | disposition home health service (06) | DRG 683 ==
LOC: M MS4PR 07-29 16:32 → M ED 14:25 → M ED INP 18:02 → M PCU 22:56
DX: N17.9 Acute kidney failure, unspecified (principal); J96.11 Chronic respiratory failure with hypoxia; J44.9 Chronic obstructive pulmonary disease, unspecified; I12.9 Hypertensive chronic kidney disease with stage 1 through stage 4 chronic kidney disease, or unspecified chronic kidney disease; E78.5 Hyperlipidemia, unspecified; I73.9 Peripheral vascular disease, unspecified; M81.0 Age-related osteoporosis without current pathological fracture; D64.9 Anemia, unspecified; K52.9 Noninfective gastroenteritis and colitis, unspecified; N40.0 Benign prostatic hyperplasia without lower urinary tract symptoms; K59.00 Constipation, unspecified; N18.3 Chronic kidney disease, stage 3 (moderate); Z79.82 Long term (current) use of aspirin; Z79.52 Long term (current) use of systemic steroids; Z79.899 Other long term (current) drug therapy; Z98.62 Peripheral vascular angioplasty status; Z99.81 Dependence on supplemental oxygen; T39.015A Adverse effect of aspirin, initial encounter; T38.0X5A Adverse effect of glucocorticoids and synthetic analogues, initial encounter

== ENCOUNTER 2017-08-20 10:59 | Inpatient (IN) | payer MEDICARE ==
[2017-08-20] MEDS: MIRALAX *UNIT DOSE* 17GM PACKET PO (09:00)
[~2017-08-20 10:59] MED LIST changes: -/AMLO25TA PO; -/MIRT30TA PO; -/TIOT18INH INH; -ACET65TA OR; -ALBU17IN2 INH; -ALBU17IN2 NEB; -ALBU83IN INH; -AMBI10TA OR; -AMLO10TAB PO; -AMLO5TAB2 PO; -ASPI81TA PO; -ASPI81TA31 PO; -ASPI81TA7 PO; -ASPI81TA85 PO; -ATOR40TA75 PO; -BROV15NE INH; -BROVANA; -CARV12.5 PO; -CEFT500T PO; -EFFE150C PO; -ENAL10TA2 PO; -FLORCAP10 PO; -FURO40TA2 PO; -ISOS30TA4 PO; -KEFL500C17 PO; -LEVO750T13 PO; -LIDO1OIN2 TOP; -LISI10TA4 PO; -LISI30TA4 PO; -LOPR50TA PO; -LOSA50TA20 PO; -MAALSUS OR; -METF500T4 PO; -METO25TA4 PO; -METO25TAB PO; -MIRT30TA3 PO; -MIRT45TA PO; -NITR0.4S SL; -PLAV75TA2 PO; -PRED10TA2 OR; -PRED10TA2 PO; -PRED5TA PO; -PROAAER10 INH; -REME15TA PO; -REME30TA PO; -ROXI1TAB2 PO; -SIMV20TA2 PO; -SPIR12.9 INH; -SPIR1CAP INH; -SPIR25TA2 PO; -Santyl TD; -THEO1TAB4 PO; -THEO30TASA PO; +THEOPHYLLINE (THEO-24) 100MG SR **CAPSULE PO; -TYLE325T5 PO; -TYLE650T30 PO; -VENL150C43 PO; -VENTAER IN; -VITA100066 PO; -ZITH250T OR; -ZITH500T PO; -[UNRECOGNIZED DRUG - CODE] PO
[2017-08-20 11:37] LABS: BASO % 0.3 % (0.0-1.0); EOS # 0.2 10^3/uL (0.0-0.50); EOS % 2.5 % (0.0-3.0); HEMATOCRIT 30.1 % (42.0-52.0); IMMATURE GRANULOCYTE % 0.8 % (0-3.0); LYMPH # 1.2 10^3/uL (1.5-4.5); LYMPH % 13.3 % (24.0-44.0); MEAN CORPUSCULAR HGB CONC 33.2 g/dl (32.0-36.5); MEAN CORPUSCULAR VOLUME 93.2 fl (80.0-96.0); MONO # 0.6 10^3/uL (0.0-0.8); MONO % 7.1 % (0.0-5.0); NEUTROPHILS # 6.7 10^3/uL (1.8-7.7); PLATELET COUNT, AUTOMATED 160 10^3/uL (150-450); RED BLOOD COUNT 3.23 10^6/uL (4.30-6.10); RED CELL DISTRIBUTION WIDTH 14.6 % (11.5-14.5); WHITE BLOOD COUNT 8.8 10^3/uL (4.0-10.0)
[2017-08-20 11:43] LABS: PROTHROMBIN TIME 13.3 SECONDS (12.4-14.5)
[2017-08-20 11:47] LABS: ABG BASE EXCESS 2.5 (-2.0-2.0); ABG HCO3 27.3 MEQ/L (22.0-26.0); ABG O2 SATURATION 98.1 % (95.0-99.0); ABG PARTIAL PRESSURE CO2 43.3 mmHg (35.0-45.0); ABG PARTIAL PRESSURE O2 128.1 mmHg (75.0-100.0); ABG STANDARD HCO3 26.7 MEQ/L (22.0-26.0); ABG TOTAL CO2 28.7 MEQ/L (23.0-31.0); ABG pH (ARTERIAL) 7.418 UNITS (7.350-7.450)
[2017-08-20 11:56] LABS: ANION GAP 9 MEQ/L (8-16); BLOOD UREA NITROGEN 33 MG/DL (7-18); CARBON DIOXIDE LEVEL 29 MEQ/L (21-32); CHLORIDE LEVEL 104 MEQ/L (98-107); CK-MB VALUE MASS 5.1 NG/ML (0.0-3.6); CPK CREATINE PHOSPHOKINASE 82 U/L (39-308); CREATININE FOR GFR 2.04 MG/DL (0.70-1.30); GLOMERULAR FILTRATION RATE 33.9 (>42); GLUCOSE, FASTING 82 MG/DL (70-100); MB/CK RELATIVE INDEX 6.21 (< OR =4); POTASSIUM SERUM 4.6 MEQ/L (3.5-5.1); SODIUM LEVEL 142 MEQ/L (136-145); TROPONIN I 0.09 NG/ML (< 0.10)
[2017-08-20 12:06] LABS: ALBUMIN 3.3 GM/DL (3.2-5.2); ALBUMIN/GLOBULIN RATIO 0.97 (1.00-1.93); ALKALINE PHOSPHATASE 110 U/L (45-117); ALT/SGPT 24 U/L (12-78); AST/SGOT 25 U/L (7-37); BILIRUBIN,DIRECT 0.2 MG/DL (0.0-0.2); BILIRUBIN,TOTAL 0.5 MG/DL (0.2-1.0); NT-PRO BNP 674 PG/ML (<450); TOTAL PROTEIN 6.7 GM/DL (6.4-8.2)
[2017-08-20] MEDS: IPRATROPIUM 0.5MG/ALBUTEROL 2.5MG INH SOL UD 3ML (DUONEB)(J7620) NEB ×3 (12:12→20:33)
[2017-08-20] MEDS: ALBUTEROL SULFATE 2.5 MG/0.5 ML INH NEB SOLN INH (12:12)
[2017-08-20] MEDS: methylPREDNISolone INJ 125 MG/2 ML VIAL (J2930) IV ×2 (12:44→20:49)
[2017-08-20] MEDS ORDERED: ONDANSETRON 4MG/2ML VIAL (J2405) IV (14:00)
[2017-08-20] MEDS ORDERED: ALBUTEROL SULFATE 2.5 MG/0.5 ML INH NEB SOLN INH (14:00)
[2017-08-20 15:25] LABS: THEOPHYLLINE LEVEL 8.5 UG/ML (10.0-20.0)
[2017-08-20] MEDS: ASPIRIN 81 MG ENTERIC TAB PO (16:21)
[2017-08-20] MEDS: NS 500 ML IV ×2 (16:21→20:06)
[2017-08-20] MEDS: VENLAFAXINE **XR** 75MG CAPSULE PO (16:21)
[2017-08-20] MEDS: PANTOPRAZOLE 40MG TAB (PROTONIX) PO (16:21)
[2017-08-20] MEDS: NYSTATIN 500,000 U/5 ML SUSP UDC PO ×2 (18:23→20:46)
[2017-08-20] MEDS: SENOKOT S TAB PO (20:46)
[2017-08-20] MEDS: **hydrALAZINE HCL** 25 MG TAB PO (20:47)
[2017-08-20] MEDS: ATORVASTATIN 20 MG TAB PO (20:47)
[2017-08-20] MEDS: MIRTAZAPINE 15 MG TAB PO (20:47)
[2017-08-20] MEDS: THEOPHYLLINE 300 MG PO (20:48)
[2017-08-20] MEDS: HEPARIN SOD (PORCINE) 5000 UNITS/ML VIAL SC (20:49)
[2017-08-20 20:54] LABS: ANION GAP 8 MEQ/L (8-16); BLOOD UREA NITROGEN 37 MG/DL (7-18); CALCIUM LEVEL 8.7 MG/DL (8.8-10.2); CARBON DIOXIDE LEVEL 29 MEQ/L (21-32); CHLORIDE LEVEL 104 MEQ/L (98-107); CK-MB VALUE MASS 5.3 NG/ML (0.0-3.6); CPK CREATINE PHOSPHOKINASE 76 U/L (39-308); CREATININE FOR GFR 2.42 MG/DL (0.70-1.30); GLOMERULAR FILTRATION RATE 27.8 (>42); GLUCOSE, FASTING 231 MG/DL (70-100); MB/CK RELATIVE INDEX 6.97 (< OR =4); SODIUM LEVEL 141 MEQ/L (136-145); TROPONIN I 0.08 NG/ML (< 0.10)
[2017-08-20 21:02] LABS: POTASSIUM SERUM 5.3 MEQ/L (3.5-5.1)
[2017-08-21] MEDS: LIDOCAINE 2% 5ML JELLY UROJET TOP (00:36)
[2017-08-21] MEDS: methylPREDNISolone INJ 125 MG/2 ML VIAL (J2930) IV ×3 (04:29→20:46)
[2017-08-21 05:12] LABS: KETONE, URINE AUTO RFX NEGATIVE (NEGATIVE); LEUKOCYTE ESTERASE UR AUTO RFX NEGATIVE (NEGATIVE); MUCUS, URINE RFX SMALL (NEGATIVE); NITRITE, URINE AUTO RFX NEGATIVE (NEGATIVE); RBC, URINE AUTO RFX TNTC /HPF (0-3); SPECIFIC GRAVITY UR AUTO RFX 1.017 (1.002-1.035); SQUAM EPITHELIAL CELL UR AURFX 0 /HPF (0-6); WBC, URINE AUTO RFX 1 /HPF (0-3)
[2017-08-21 05:20] LABS: HEMOGLOBIN 8.6 g/dl (14.0-18.0); MEAN CORPUSCULAR HEMOGLOBIN 30.3 pg (27.0-33.0); MEAN CORPUSCULAR HGB CONC 33.1 g/dl (32.0-36.5); MEAN CORPUSCULAR VOLUME 91.5 fl (80.0-96.0); PLATELET COUNT, AUTOMATED 139 10^3/uL (150-450); RED BLOOD COUNT 2.84 10^6/uL (4.30-6.10); RED CELL DISTRIBUTION WIDTH 14.4 % (11.5-14.5); WHITE BLOOD COUNT 4.7 10^3/uL (4.0-10.0)
[2017-08-21 05:37] LABS: ANION GAP 6 MEQ/L (8-16); BLOOD UREA NITROGEN 37 MG/DL (7-18); C REACTIVE PROTEIN QUANTITATIV 2.61 MG/DL (0.00-0.30); CALCIUM LEVEL 8.7 MG/DL (8.8-10.2); CARBON DIOXIDE LEVEL 28 MEQ/L (21-32); CHLORIDE LEVEL 104 MEQ/L (98-107); GLOMERULAR FILTRATION RATE 34.7 (>42); GLUCOSE, FASTING 153 MG/DL (70-100); POTASSIUM SERUM 4.6 MEQ/L (3.5-5.1); SODIUM LEVEL 138 MEQ/L (136-145)
[2017-08-21 05:44] LABS: SODIUM,RANDOM URINE 54 MEQ/L
[2017-08-21] MEDS: IPRATROPIUM 0.5MG/ALBUTEROL 2.5MG INH SOL UD 3ML (DUONEB)(J7620) NEB ×4 (07:57→21:00)
[2017-08-21] MEDS: NYSTATIN 500,000 U/5 ML SUSP UDC PO ×4 (08:46→20:46)
[2017-08-21] MEDS: **hydrALAZINE HCL** 25 MG TAB PO ×2 (08:46→20:47)
[2017-08-21] MEDS: HEPARIN SOD (PORCINE) 5000 UNITS/ML VIAL SC (08:46)
[2017-08-21] MEDS: MIRALAX *UNIT DOSE* 17GM PACKET PO (08:46)
[2017-08-21] MEDS: THEOPHYLLINE 300 MG PO (08:46)
[2017-08-21] MEDS: VENLAFAXINE **XR** 75MG CAPSULE PO (08:47)
[2017-08-21] MEDS: PANTOPRAZOLE 40MG TAB (PROTONIX) PO (08:47)
[2017-08-21] MEDS: SENOKOT S TAB PO ×2 (08:47→20:46)
[2017-08-21] MEDS: TAMSULOSIN 0.4 MG CAP PO (10:59)
[2017-08-21 12:37] LABS: FERRITIN 239 NG/ML (26-388); IRON (FE) 39 UG/DL (65-175); TOTAL IRON BINDING CAPACITY 230 UG/DL (250-450); UREA NITROGEN RANDOM URINE 952 MG/DL
[2017-08-21 12:51] LABS: VITAMIN B12 LEVEL 355 PG/ML (247-911)
[2017-08-21 12:52] LABS: FOLATE 7.4 NG/ML (>5.4)
[2017-08-21] MEDS: ASPIRIN 81 MG ENTERIC TAB PO (18:09)
[2017-08-21] MEDS: POTASSIUM CHLORIDE 10 MEQ SR TABLET PO (18:10)
[2017-08-21] MEDS: VITAMIN D 1,000 INTERNATIONAL UNITS TABLET PO (18:10)
[2017-08-21] MEDS: ATORVASTATIN 20 MG TAB PO (20:46)
[2017-08-21] MEDS: MIRTAZAPINE 15 MG TAB PO (20:47)
[2017-08-22] MEDS: methylPREDNISolone INJ 125 MG/2 ML VIAL (J2930) IV (05:48)
[2017-08-22] MEDS: IPRATROPIUM 0.5MG/ALBUTEROL 2.5MG INH SOL UD 3ML (DUONEB)(J7620) NEB ×4 (07:04→20:00)
[2017-08-22 07:08] LABS: HEMATOCRIT 28.7 % (42.0-52.0); HEMOGLOBIN 9.3 g/dl (14.0-18.0); MEAN CORPUSCULAR HEMOGLOBIN 29.9 pg (27.0-33.0); MEAN CORPUSCULAR HGB CONC 32.4 g/dl (32.0-36.5); MEAN CORPUSCULAR VOLUME 92.3 fl (80.0-96.0); PLATELET COUNT, AUTOMATED 178 10^3/uL (150-450); RED BLOOD COUNT 3.11 10^6/uL (4.30-6.10); RED CELL DISTRIBUTION WIDTH 14.7 % (11.5-14.5); WHITE BLOOD COUNT 10.7 10^3/uL (4.0-10.0)
[2017-08-22 07:30] LABS: ANION GAP 7 MEQ/L (8-16); BLOOD UREA NITROGEN 40 MG/DL (7-18); CALCIUM LEVEL 9.4 MG/DL (8.8-10.2); CARBON DIOXIDE LEVEL 28 MEQ/L (21-32); CHLORIDE LEVEL 104 MEQ/L (98-107); CREATININE FOR GFR 1.95 MG/DL (0.70-1.30); GLOMERULAR FILTRATION RATE 35.7 (>42); GLUCOSE, FASTING 135 MG/DL (70-100); MAGNESIUM LEVEL 2.1 MG/DL (1.8-2.4); POTASSIUM SERUM 4.5 MEQ/L (3.5-5.1); SODIUM LEVEL 139 MEQ/L (136-145)
[2017-08-22] MEDS: **hydrALAZINE HCL** 25 MG TAB PO ×2 (08:36→20:45)
[2017-08-22] MEDS: SENOKOT S TAB PO ×2 (08:36→20:44)
[2017-08-22] MEDS: MIRALAX *UNIT DOSE* 17GM PACKET PO (08:36)
[2017-08-22] MEDS: TAMSULOSIN 0.4 MG CAP PO (08:36)
[2017-08-22] MEDS: VENLAFAXINE **XR** 75MG CAPSULE PO (08:36)
[2017-08-22] MEDS: THEOPHYLLINE 300 MG PO (08:36)
[2017-08-22] MEDS: PANTOPRAZOLE 40MG TAB (PROTONIX) PO (08:36)
[2017-08-22] MEDS: NYSTATIN 500,000 U/5 ML SUSP UDC PO ×4 (08:39→20:44)
[2017-08-22] MEDS ORDERED: NS 1,000 ML IV (08:50)
[2017-08-22] MEDS: VANCOMYCIN HCL 500 MG in D5W MINI-BAG PLUS 100 ML IV (10:57)
[2017-08-22] MEDS: VANCOMYCIN HCL 1,000 MG, VIAL MATE ADAPTER 1 EACH in D5W 250 ML IV (10:57)
[2017-08-22] MEDS: methylPREDNISolone INJ 40 MG/1 ML VIAL (J2920) IV ×2 (14:36→22:23)
[2017-08-22] MEDS: ASPIRIN 81 MG ENTERIC TAB PO (17:16)
[2017-08-22] MEDS: POTASSIUM CHLORIDE 10 MEQ SR TABLET PO (17:16)
[2017-08-22] MEDS: VITAMIN D 1,000 INTERNATIONAL UNITS TABLET PO (17:16)
[2017-08-22] MEDS: ATORVASTATIN 20 MG TAB PO (20:44)
[2017-08-22] MEDS: RAMELTEON 8 MG TAB (ROZEREM) PO (20:44)
[2017-08-22] MEDS: MIRTAZAPINE 15 MG TAB PO (20:45)
[2017-08-23] MEDS: LIDOCAINE 2% 5ML JELLY UROJET TOP (03:31)
[2017-08-23] MEDS: methylPREDNISolone INJ 40 MG/1 ML VIAL (J2920) IV ×2 (05:48→14:08)
[2017-08-23 06:36] LABS: HEMATOCRIT 27.5 % (42.0-52.0); HEMOGLOBIN 9.1 g/dl (14.0-18.0); MEAN CORPUSCULAR HEMOGLOBIN 30.6 pg (27.0-33.0); MEAN CORPUSCULAR HGB CONC 33.1 g/dl (32.0-36.5); MEAN CORPUSCULAR VOLUME 92.6 fl (80.0-96.0); PLATELET COUNT, AUTOMATED 142 10^3/uL (150-450); RED BLOOD COUNT 2.97 10^6/uL (4.30-6.10); RED CELL DISTRIBUTION WIDTH 14.9 % (11.5-14.5); WHITE BLOOD COUNT 8.9 10^3/uL (4.0-10.0)
[2017-08-23 06:54] LABS: BLOOD UREA NITROGEN 44 MG/DL (7-18); CALCIUM LEVEL 8.9 MG/DL (8.8-10.2); CREATININE FOR GFR 1.87 MG/DL (0.70-1.30); GLOMERULAR FILTRATION RATE 37.5 (>42); GLUCOSE, FASTING 132 MG/DL (70-100)
[2017-08-23 07:16] LABS: CARBON DIOXIDE LEVEL 26 MEQ/L (21-32)
[2017-08-23] MEDS: IPRATROPIUM 0.5MG/ALBUTEROL 2.5MG INH SOL UD 3ML (DUONEB)(J7620) NEB ×4 (07:29→20:00)
[2017-08-23 07:33] LABS: ANION GAP 8 MEQ/L (8-16); CHLORIDE LEVEL 106 MEQ/L (98-107); POTASSIUM SERUM 4.6 MEQ/L (3.5-5.1); SODIUM LEVEL 140 MEQ/L (136-145)
[2017-08-23] MEDS: MIRALAX *UNIT DOSE* 17GM PACKET PO (09:45)
[2017-08-23] MEDS: NYSTATIN 500,000 U/5 ML SUSP UDC PO ×4 (09:45→21:46)
[2017-08-23] MEDS: ACETAMINOPHEN TAB 650MG DOSE (2X325MG) PO (09:47)
[2017-08-23] MEDS: SENOKOT S TAB PO ×2 (09:47→21:47)
[2017-08-23] MEDS: VENLAFAXINE **XR** 75MG CAPSULE PO (09:48)
[2017-08-23] MEDS: TAMSULOSIN 0.4 MG CAP PO (09:48)
[2017-08-23] MEDS: **hydrALAZINE HCL** 25 MG TAB PO ×2 (09:49→21:47)
[2017-08-23] MEDS: THEOPHYLLINE 300 MG PO (09:50)
[2017-08-23] MEDS: PANTOPRAZOLE 40MG TAB (PROTONIX) PO (09:52)
[2017-08-23] MEDS: ASPIRIN 81 MG ENTERIC TAB PO (16:47)
[2017-08-23] MEDS: VITAMIN D 1,000 INTERNATIONAL UNITS TABLET PO (17:47)
[2017-08-23] MEDS: POTASSIUM CHLORIDE 10 MEQ SR TABLET PO (17:47)
[2017-08-23] MEDS: RAMELTEON 8 MG TAB (ROZEREM) PO (21:46)
[2017-08-23] MEDS: MIRTAZAPINE 15 MG TAB PO (21:46)
[2017-08-23] MEDS: ATORVASTATIN 20 MG TAB PO (21:46)
[2017-08-24] MEDS: methylPREDNISolone INJ 40 MG/1 ML VIAL (J2920) IV (02:34)
[2017-08-24 06:35] LABS: HEMATOCRIT 28.9 % (42.0-52.0); HEMOGLOBIN 9.3 g/dl (14.0-18.0); MEAN CORPUSCULAR HEMOGLOBIN 29.9 pg (27.0-33.0); MEAN CORPUSCULAR HGB CONC 32.2 g/dl (32.0-36.5); MEAN CORPUSCULAR VOLUME 92.9 fl (80.0-96.0); PLATELET COUNT, AUTOMATED 152 10^3/uL (150-450); RED BLOOD COUNT 3.11 10^6/uL (4.30-6.10); RED CELL DISTRIBUTION WIDTH 14.9 % (11.5-14.5); WHITE BLOOD COUNT 8.3 10^3/uL (4.0-10.0)
[2017-08-24 06:52] LABS: ANION GAP 6 MEQ/L (8-16); BLOOD UREA NITROGEN 47 MG/DL (7-18); CALCIUM LEVEL 8.8 MG/DL (8.8-10.2); CARBON DIOXIDE LEVEL 28 MEQ/L (21-32); CHLORIDE LEVEL 104 MEQ/L (98-107); CREATININE FOR GFR 1.89 MG/DL (0.70-1.30); GLUCOSE, FASTING 133 MG/DL (70-100); MAGNESIUM LEVEL 2.1 MG/DL (1.8-2.4); SODIUM LEVEL 138 MEQ/L (136-145)
[2017-08-24] MEDS: THEOPHYLLINE 300 MG PO (09:00)
[2017-08-24] MEDS: MIRALAX *UNIT DOSE* 17GM PACKET PO (09:00)
[2017-08-24] MEDS: IPRATROPIUM 0.5MG/ALBUTEROL 2.5MG INH SOL UD 3ML (DUONEB)(J7620) NEB ×4 (09:04→19:48)
[2017-08-24] MEDS: NYSTATIN 500,000 U/5 ML SUSP UDC PO ×4 (10:33→20:21)
[2017-08-24] MEDS: **hydrALAZINE HCL** 25 MG TAB PO ×2 (10:33→20:22)
[2017-08-24] MEDS: VENLAFAXINE **XR** 75MG CAPSULE PO (10:33)
[2017-08-24] MEDS: SENOKOT S TAB PO ×2 (10:33→20:21)
[2017-08-24] MEDS: TAMSULOSIN 0.4 MG CAP PO (10:33)
[2017-08-24] MEDS: PANTOPRAZOLE 40MG TAB (PROTONIX) PO (10:34)
[2017-08-24] MEDS: VITAMIN D 1,000 INTERNATIONAL UNITS TABLET PO (17:49)
[2017-08-24] MEDS: ASPIRIN 81 MG ENTERIC TAB PO (17:49)
[2017-08-24] MEDS: RAMELTEON 8 MG TAB (ROZEREM) PO (20:21)
[2017-08-24] MEDS: MIRTAZAPINE 15 MG TAB PO (20:21)
[2017-08-24] MEDS: ATORVASTATIN 20 MG TAB PO (20:22)
[2017-08-25 06:02] LABS: HEMATOCRIT 28.9 % (42.0-52.0); HEMOGLOBIN 9.3 g/dl (14.0-18.0); MEAN CORPUSCULAR HEMOGLOBIN 29.9 pg (27.0-33.0); MEAN CORPUSCULAR HGB CONC 32.2 g/dl (32.0-36.5); MEAN CORPUSCULAR VOLUME 92.9 fl (80.0-96.0); PLATELET COUNT, AUTOMATED 167 10^3/uL (150-450); RED BLOOD COUNT 3.11 10^6/uL (4.30-6.10); RED CELL DISTRIBUTION WIDTH 14.9 % (11.5-14.5); WHITE BLOOD COUNT 10.3 10^3/uL (4.0-10.0)
[2017-08-25 06:26] LABS: ANION GAP 5 MEQ/L (8-16); BLOOD UREA NITROGEN 49 MG/DL (7-18); CALCIUM LEVEL 8.8 MG/DL (8.8-10.2); CARBON DIOXIDE LEVEL 29 MEQ/L (21-32); CHLORIDE LEVEL 106 MEQ/L (98-107); CREATININE FOR GFR 1.86 MG/DL (0.70-1.30); GLOMERULAR FILTRATION RATE 37.7 (>42); GLUCOSE, FASTING 95 MG/DL (70-100); MAGNESIUM LEVEL 2.1 MG/DL (1.8-2.4); SODIUM LEVEL 140 MEQ/L (136-145)
[2017-08-25] MEDS: IPRATROPIUM 0.5MG/ALBUTEROL 2.5MG INH SOL UD 3ML (DUONEB)(J7620) NEB ×4 (07:09→20:31)
[2017-08-25] MEDS: NYSTATIN 500,000 U/5 ML SUSP UDC PO ×2 (09:02→12:37)
[2017-08-25] MEDS: THEOPHYLLINE 300 MG PO (09:02)
[2017-08-25] MEDS: predniSONE 20 MG TAB PO (09:03)
[2017-08-25] MEDS: PANTOPRAZOLE 40MG TAB (PROTONIX) PO (09:03)
[2017-08-25] MEDS: **hydrALAZINE HCL** 25 MG TAB PO ×2 (09:03→21:40)
[2017-08-25] MEDS: TAMSULOSIN 0.4 MG CAP PO (09:03)
[2017-08-25] MEDS: SENOKOT S TAB PO ×2 (09:03→21:39)
[2017-08-25] MEDS: MIRALAX *UNIT DOSE* 17GM PACKET PO (09:03)
[2017-08-25] MEDS: VENLAFAXINE **XR** 75MG CAPSULE PO (09:03)
[2017-08-25] MEDS: ASPIRIN 81 MG ENTERIC TAB PO (17:31)
[2017-08-25] MEDS: VITAMIN D 1,000 INTERNATIONAL UNITS TABLET PO (17:31)
[2017-08-25] MEDS: RAMELTEON 8 MG TAB (ROZEREM) PO (21:39)
[2017-08-25] MEDS: ATORVASTATIN 20 MG TAB PO (21:39)
[2017-08-25] MEDS: MIRTAZAPINE 15 MG TAB PO (21:40)
[2017-08-26 05:57] LABS: HEMATOCRIT 28.2 % (42.0-52.0); HEMOGLOBIN 9.3 g/dl (14.0-18.0); MEAN CORPUSCULAR HEMOGLOBIN 30.9 pg (27.0-33.0); MEAN CORPUSCULAR VOLUME 93.7 fl (80.0-96.0); PLATELET COUNT, AUTOMATED 126 10^3/uL (150-450); RED BLOOD COUNT 3.01 10^6/uL (4.30-6.10); RED CELL DISTRIBUTION WIDTH 14.7 % (11.5-14.5); WHITE BLOOD COUNT 9.2 10^3/uL (4.0-10.0)
[2017-08-26 06:21] LABS: ANION GAP 5 MEQ/L (8-16); BLOOD UREA NITROGEN 45 MG/DL (7-18); CALCIUM LEVEL 8.7 MG/DL (8.8-10.2); CARBON DIOXIDE LEVEL 29 MEQ/L (21-32); CHLORIDE LEVEL 105 MEQ/L (98-107); CREATININE FOR GFR 1.64 MG/DL (0.70-1.30); GLOMERULAR FILTRATION RATE 43.6 (>42); GLUCOSE, FASTING 75 MG/DL (70-100); MAGNESIUM LEVEL 2.1 MG/DL (1.8-2.4); POTASSIUM SERUM 4.3 MEQ/L (3.5-5.1); SODIUM LEVEL 139 MEQ/L (136-145)
[2017-08-26] MEDS: IPRATROPIUM 0.5MG/ALBUTEROL 2.5MG INH SOL UD 3ML (DUONEB)(J7620) NEB ×4 (07:24→20:39)
[2017-08-26] MEDS: SENOKOT S TAB PO ×2 (08:47→21:52)
[2017-08-26] MEDS: predniSONE 20 MG TAB PO (08:47)
[2017-08-26] MEDS: PANTOPRAZOLE 40MG TAB (PROTONIX) PO (08:47)
[2017-08-26] MEDS: TAMSULOSIN 0.4 MG CAP PO (08:47)
[2017-08-26] MEDS: MIRALAX *UNIT DOSE* 17GM PACKET PO (08:47)
[2017-08-26] MEDS: VENLAFAXINE **XR** 75MG CAPSULE PO (08:47)
[2017-08-26] MEDS: **hydrALAZINE HCL** 25 MG TAB PO ×2 (08:48→21:53)
[2017-08-26] MEDS: THEOPHYLLINE 300 MG PO (08:48)
[2017-08-26] MEDS: ASPIRIN 81 MG ENTERIC TAB PO (18:02)
[2017-08-26] MEDS: VITAMIN D 1,000 INTERNATIONAL UNITS TABLET PO (18:02)
[2017-08-26] MEDS: MIRTAZAPINE 15 MG TAB PO (21:52)
[2017-08-26] MEDS: ATORVASTATIN 20 MG TAB PO (21:52)
[2017-08-26] MEDS: RAMELTEON 8 MG TAB (ROZEREM) PO (21:52)
[2017-08-27 07:30] LABS: BASO % 0.1 % (0.0-1.0); EOS % 0.3 % (0.0-3.0); HEMATOCRIT 28.9 % (42.0-52.0); HEMOGLOBIN 9.4 g/dl (14.0-18.0); IMMATURE GRANULOCYTE % 2.5 % (0-3.0); LYMPH # 0.7 10^3/uL (1.5-4.5); LYMPH % 8.4 % (24.0-44.0); MEAN CORPUSCULAR HEMOGLOBIN 30.3 pg (27.0-33.0); MEAN CORPUSCULAR HGB CONC 32.5 g/dl (32.0-36.5); MEAN CORPUSCULAR VOLUME 93.2 fl (80.0-96.0); MONO # 0.5 10^3/uL (0.0-0.8); MONO % 5.4 % (0.0-5.0); NEUTROPHILS # 7.4 10^3/uL (1.8-7.7); NEUTROPHILS % 83.3 % (36.0-66.0); PLATELET COUNT, AUTOMATED 149 10^3/uL (150-450); RED CELL DISTRIBUTION WIDTH 14.8 % (11.5-14.5); WHITE BLOOD COUNT 8.8 10^3/uL (4.0-10.0)
[2017-08-27 07:34] LABS: MAGNESIUM LEVEL 2.3 MG/DL (1.8-2.4)
[2017-08-27] MEDS: IPRATROPIUM 0.5MG/ALBUTEROL 2.5MG INH SOL UD 3ML (DUONEB)(J7620) NEB ×2 (08:22→12:00)
[2017-08-27] MEDS: TIOTROPIUM INHALER/CAPSULE (SPIRIVA) INH (08:22)
[2017-08-27 08:26] LABS: ANION GAP 6 MEQ/L (8-16); BLOOD UREA NITROGEN 38 MG/DL (7-18); CALCIUM LEVEL 8.6 MG/DL (8.8-10.2); CARBON DIOXIDE LEVEL 30 MEQ/L (21-32); CHLORIDE LEVEL 105 MEQ/L (98-107); CREATININE FOR GFR 1.61 MG/DL (0.70-1.30); GLOMERULAR FILTRATION RATE 44.5 (>42); GLUCOSE, FASTING 78 MG/DL (70-100); POTASSIUM SERUM 4.1 MEQ/L (3.5-5.1); SODIUM LEVEL 141 MEQ/L (136-145)
[2017-08-27] MEDS: PANTOPRAZOLE 40MG TAB (PROTONIX) PO (09:30)
[2017-08-27] MEDS: TAMSULOSIN 0.4 MG CAP PO (09:30)
[2017-08-27] MEDS: **hydrALAZINE HCL** 25 MG TAB PO ×2 (09:31→16:14)
[2017-08-27] MEDS: SENOKOT S TAB PO (09:31)
[2017-08-27] MEDS: predniSONE 20 MG TAB PO (09:31)
[2017-08-27] MEDS: MIRALAX *UNIT DOSE* 17GM PACKET PO (09:32)
[2017-08-27] MEDS: VENLAFAXINE **XR** 75MG CAPSULE PO (09:32)
[2017-08-27] MEDS: THEOPHYLLINE 300 MG PO (09:32)
== END 2017-08-27 16:45 | disposition home health service (06) | DRG 191 ==
LOC: M MS5PR 08-21 16:26 → M ED 10:59 → M ED INP 13:51 → M PCU 16:53
DX: J44.1 Chronic obstructive pulmonary disease with (acute) exacerbation (principal); J96.11 Chronic respiratory failure with hypoxia; N17.9 Acute kidney failure, unspecified; I50.32 Chronic diastolic (congestive) heart failure; I13.0 Hypertensive heart and chronic kidney disease with heart failure and stage 1 through stage 4 chronic kidney disease, or unspecified chronic kidney disease; E78.5 Hyperlipidemia, unspecified; I73.9 Peripheral vascular disease, unspecified; M81.0 Age-related osteoporosis without current pathological fracture; N40.1 Benign prostatic hyperplasia with lower urinary tract symptoms; D63.8 Anemia in other chronic diseases classified elsewhere; R33.9 Retention of urine, unspecified; N18.3 Chronic kidney disease, stage 3 (moderate); Z87.891 Personal history of nicotine dependence; Z79.52 Long term (current) use of systemic steroids; Z79.82 Long term (current) use of aspirin; Z79.899 Other long term (current) drug therapy